=== PATIENT | male | born 1975 | race Caucasian/White ===

== ENCOUNTER → 2017-05-30 09:03 | Outpatient (REF) | payer MEDICAID, SELFPAY ==
[2017-05-30 14:06] LABS: Basophils % 0.6 % (0.1-2.0); Eosinophils # 0.2 K/mm3 (0.0-0.4); Eosinophils % 2.8 % (0.1-12.0); Hematocrit 47.2 % (42.0-52.0); Hemoglobin 15.7 g/dL (14.1-18.0); Lymphocytes # 1.9 K/mm3 (0.7-4.5); Lymphocytes % 32.9 K/mm3 (10-50); Mean Corpuscular HGB Conc 33.2 g/dL (31.8-35.4); Mean Corpuscular Hemoglobin 29.8 pg (27.0-31.2); Mean Corpuscular Volume 89.7 fl (80-94); Mean Platelet Volume 8.5 fl (7.4-10.4); Monocytes # 0.6 K/mm3 (0.1-1.0); Monocytes % 10.5 % (1.7-9.3); Neutrophils % 53.2 % (37.0-80.0); Platelet Count 296 K/mm3 (142-424); Red Blood Count 5.27 M/mm3 (4.60-6.20); White Blood Count 5.6 K/mm3 (4.8-10.8)
[2017-05-30 14:36] LABS: Alanine Aminotransferase 35 U/L (12-78); Albumin Level 3.9 gm/dL (3.4-5.0); Albumin/Globulin Ratio 1.3 (1.1-1.8); Alkaline Phosphatase 76 U/L (46-116); Anion Gap 14.5 mEq/L (5-15); Aspartate Amino Transferase 18 U/L (15-37); Bilirubin,Total 0.5 mg/dL (0.2-1.0); Blood Urea Nitrogen 17 mg/dL (7-18); Calcium 9.1 mg/dL (8.5-10.1); Carbon Dioxide 27 mmol/L (21.0-32.0); Chloride 103 mmol/L (98-107); Chol/HDL Ratio 4.4 (1-3.5); Cholesterol 197 mg/dL (140-200); Creatinine,Serum 0.92 mg/dL (0.70-1.30); Estimated Glomerular Filt Rate 90 ml/min (>60); GFR (African American) 109 ML/MIN (>60); Glucose 120 mg/dL (74-106); HDL Cholesterol 45 mg/dL (27-67); LDL Cholesterol 133 mg/dL (0-130); Potassium 4.5 mmoL/L (3.5-5.1); Sodium 140 mmol/L (136-145); T4 (Thyroxine) 8.2 ug/dl (4.7-13.3); Thyroid Stimulating Hormone 2.65 uIU/ml (0.358-3.740); Total Protein,Serum 6.9 gm/dL (6.4-8.2); Triglycerides 93 mg/dL (30-200); VLDL Cholesterol 19 mg/dL (0-40)
[2017-05-30 16:18] LABS: Hemoglobin A1C 5.5 % (0.0-7.0)
[2017-05-31 13:22] LABS: Vitamin B12 514 pg/mL (232-1245); Vitamin D 25 Hydroxy 34.1 ng/mL (30.0-100.0)
== END ==
LOC: LAB 09:03
PROVIDERS: Visit Provider Physician Assistant
DX: R42 Dizziness and giddiness (principal); Z83.3 Family history of diabetes mellitus
CPT/HCPCS: 80053; 80061; 82607; 82652; 83036; 84436; 84443; 85025

== ENCOUNTER → 2018-06-05 13:30 | Outpatient (CLI) | payer MEDICAID, SELFPAY ==
--- NOTE | 2018-06-05 13:31 | CT_ITS ---
CT chest w con HISTORY: Shortness of air in chest pain, left anterior chest pain ITS.REASON: a ORDERING PHYSICIAN: Dg Rolon MD PATIENT AGE: 42 years COMPARISON: None TECHNIQUE: Axial images obtained following the administration of 75 mL of Optiray 350 . Sagittal, and coronal reformatted images are also generated and reviewed. All CT scans at the facility use one or more dose reduction, viz: automated exposure control, ma/kV adjustment per patient size (including targeted exams where dose is matched to indication, i.e. head), or iterative reconstruction technique. FINDINGS: There is mild fusiform dilatation of the ascending aorta measuring up to 4.6 cm AP and 4.4 cm transverse. There is some mild calcification noted of the aortic valve. No evidence of aortic dissection. No evidence of central pulmonary embolus. Scattered small calcified nodes are present within the mediastinum. No mediastinal or hilar mass or adenopathy. There is a calcified granuloma in the right middle lobe. Small subpleural opacity is present in the right lower lobe posteriorly nonspecific at 6 mm x 3 mm. No lobar consolidation or collapse. No central obstructing lesions. A small subpleural opacity is present in the left lower lobe posteriorly at 3 mm. No acute finding in the upper abdomen. No acute bony findings. IMPRESSION: 1. Fusiform aneurysm of the ascending aorta at 4.6 x 4.4 cm with some minimal calcification of the aortic valve. Echocardiography may be of further value if not already performed 2. Nonspecific subpleural opacities in the both lower lobes measuring up to 6 x 3 mm on the right. Consider 6 month follow-up
--- NOTE | 2018-06-05 13:31 | CA_ITS ---
PROCEDURE: 2-D M-mode and color Doppler study INDICATIONS FOR THE TEST: Chest painX COPD Heart Murmur Tobacco Smoking Palpitations Fatigue Syncope Edema Hypertension Diabetes Mellitus Rheumatic Fever SOBXDOE ObesityXHyperlipidemia Family History HD Additional History BEE,AI PATIENT INFORMATION HEIGHT: 72 WEIGHT:240 GENDER: Male B/P:136/80 2-D/M-MODE INTERPRETATION: 2-D MEASUREMENTS OBSERVED VALUES IN CMS Right Ventricular Dimension (RVDd) 3.0 Interventricular Septum (Thickness)(IVsd) .9 Left Ventricular Internal Dimensions(LVIDd) 5.6 Left Ventricular Posterior Wall (Thickness)(LVPWd) .9 Aortic Root 3.6 Aortic Cusp Separation Left Atrial Dimensions (LAD) 3.0 2D 1. Left atrium is mildly enlarged, left ventricle is normal size, there is mild qualitative concentric left ventricular hypertrophy, visually estimated ejection fraction 55% with no regional wall motion abnormality. 2. The right atrium and right ventricle are mildly enlarged with normal contractility. 3. The aortic valve is thickened and calcified, leaflet continue to display mobility. 4. The mitral and tricuspid valvular grossly normal. 5. The pulmonic valve is poorly visualized. 6. No significant pericardial effusion noted. DOPPLER INTERROGATION: Doppler interrogation of the aortic, mitral and tricuspid valvular presence of aortic insufficiency which is difficult to quantify, this likely moderate range, mild mitral and tricuspid regurgitation, grade 1 diastolic dysfunction seen without tissue Doppler evidence of raised left atrial pressure, tricuspid regurgitation jet velocity is inadequate for calculation of the right ventricular systolic pressure. CONCLUSION: 1. Mildly enlarged left atrium, normal left ventricular size, mild concentric left ventricular hypertrophy, visually estimated ejection fraction of 55% with no regional wall motion abnormality, grade 1 diastolic dysfunction seen without tissue Doppler evidence of raised left atrial pressure. 2. Mildly enlarged right ventricle with normal contractility. 3. Thickened and calcified aortic valve without significant aortic stenosis, there is aortic insufficiency present which is difficult to quantify this is likely moderate range. 4. Mild mitral and tricuspid regurgitation 5. No significant pericardial effusion noted.
== END ==
PROVIDERS: PCP Physician Assistant; Visit Provider Internal Medicine Cardiovascular Disease
DX: R06.02 Shortness of breath (principal); R07.9 Chest pain, unspecified; I35.1 Nonrheumatic aortic (valve) insufficiency; R05 Cough; R91.8 Other nonspecific abnormal finding of lung field
CPT/HCPCS: 71260; 93306; Q9967

== ENCOUNTER → 2018-06-15 10:59 | Outpatient (CLI) | payer MEDICAID, SELFPAY ==
[2018-06-15 11:23] LABS: Basophils % 0.9 % (0.1-2.0); Eosinophils # 0.1 K/mm3 (0.0-0.4); Eosinophils % 1.7 % (0.1-12.0); Hematocrit 46.8 % (42.0-52.0); Hemoglobin 15.3 g/dL (14.1-18.0); Lymphocytes # 1.8 K/mm3 (0.7-4.5); Lymphocytes % 39.1 % (10-50); Mean Corpuscular HGB Conc 32.7 g/dL (31.8-35.4); Mean Corpuscular Hemoglobin 29.9 pg (27.0-31.2); Mean Corpuscular Volume 91.3 fl (80-94); Monocytes # 0.4 K/mm3 (0.1-1.0); Monocytes % 8.2 % (1.7-9.3); Neutrophils # 2.3 K/mm3 (1.8-7.8); Platelet Count 298 K/mm3 (142-424); Red Blood Count 5.12 M/mm3 (4.60-6.20); Red Cell Distribution Width 13.9 % (11.5-17.5); White Blood Count 4.7 K/mm3 (4.8-10.8)
[2018-06-15 12:28] LABS: Alanine Aminotransferase 31 U/L (12-78); Albumin Level 3.8 gm/dL (3.4-5.0); Albumin/Globulin Ratio 1.3 (1.1-1.8); Alkaline Phosphatase 73 U/L (46-116); Anion Gap 12.6 mEq/L (5-15); Aspartate Amino Transferase 18 U/L (15-37); Bilirubin,Total 0.6 mg/dL (0.2-1.0); Blood Urea Nitrogen 19 mg/dL (7-18); Calcium 9.2 mg/dL (8.5-10.1); Carbon Dioxide 29 mmol/L (21.0-32.0); Chloride 104 mmol/L (98-107); Estimated Glomerular Filt Rate 92 ml/min (>60); Free T4 (Free Thyroxine) 0.88 ng/dl (0.76-1.46); GFR (African American) 111 ML/MIN (>60); Glucose 89 mg/dL (74-106); Potassium 4.6 mmoL/L (3.5-5.1); Sodium 141 mmol/L (136-145); Thyroid Stimulating Hormone 2.39 uIU/ml (0.358-3.740); Total Protein,Serum 6.8 gm/dL (6.4-8.2)
== END ==
PROVIDERS: Physician Assistant; Visit Provider Internal Medicine Cardiovascular Disease
DX: R07.9 Chest pain, unspecified (principal); I35.1 Nonrheumatic aortic (valve) insufficiency; K21.9 Gastro-esophageal reflux disease without esophagitis; R05 Cough; R06.09 Other forms of dyspnea; Z99.89 Dependence on other enabling machines and devices; R51 Headache; G47.33 Obstructive sleep apnea (adult) (pediatric)
CPT/HCPCS: 36415; 80053; 83880; 84439; 84443; 85025

== ENCOUNTER → 2018-10-19 09:29 | Outpatient (CLI) | payer MEDICAID, SELFPAY ==
--- NOTE | 2018-10-19 09:31 | CA_ITS ---
PROCEDURE: 2-D M-mode and color Doppler study INDICATIONS FOR THE TEST: Chest pain + COPD Heart Murmur Tobacco Smoking Palpitations Fatigue Syncope Edema Hypertension+Diabetes Mellitus Rheumatic Fever SOB OLIVAS Obesity Hyperlipidemia+ Family History HD Additional History GERD, BEE, 08/13/18 AVR PIG VALVE & ANEURYSM REPAIR, 08/15/18 CVA RIGHT SIDE PATIENT INFORMATION HEIGHT: 72 WEIGHT:247 GENDER: Male B/P:126/87 2-D/M-MODE INTERPRETATION: 2-D MEASUREMENTS OBSERVED VALUES IN CMS Right Ventricular Dimension (RVDd) 2.7 Interventricular Septum (Thickness)(IVsd) 1.0 Left Ventricular Internal Dimensions(LVIDd) 5.1 Left Ventricular Posterior Wall (Thickness)(LVPWd) 0.8 Aortic Root 3.8 Aortic Cusp Separation 2.6 Left Atrial Dimensions (LAD) 4.0 2D 1. Left atrium is qualitatively mildly enlarged, left ventricle is normal size, left ventricle wall thickness is upper limit of the normal, there is preserved left ventricular systolic function, visually estimated ejection fraction 55% with no regional wall motion abnormality. 2. The right atrium and right ventricle are normal size and contractility. 3. There is mild prosthetic valve noted in the aortic position, the valve is well seated. 4. The mitral and tricuspid valvular grossly normal. 5. The pulmonic valve is poorly present. 6. No significant pericardial effusion noted. DOPPLER INTERROGATION: Doppler interrogation of the aortic, mitral and tricuspid valvular presence of mild mitral and tricuspid regurgitation, tricuspid regurgitation jet velocity is inadequate for calculation of the right ventricular systolic pressure, diastolic parameters are within normal range. Gradient across the prosthetic aortic valve is in acceptable range. CONCLUSION: 1. Mildly enlarged left atrium, normal left ventricular size, visually estimated ejection fraction 55% with no regional wall motion abnormality. Diastolic parameters are within normal range. 2. Normal functioning bio prosthetic valve in aortic position without aortic stenosis aortic insufficiency. 3. Mild mitral and tricuspid regurgitation 4. No significant pericardial effusion noted.
== END ==
PROVIDERS: PCP Physician Assistant; Visit Provider Internal Medicine Cardiovascular Disease
DX: R07.89 Other chest pain (principal); I35.1 Nonrheumatic aortic (valve) insufficiency; R42 Dizziness and giddiness; F41.9 Anxiety disorder, unspecified; K21.9 Gastro-esophageal reflux disease without esophagitis; G47.33 Obstructive sleep apnea (adult) (pediatric); Z86.79 Personal history of other diseases of the circulatory system; Z95.2 Presence of prosthetic heart valve; Z98.890 Other specified postprocedural states; Z99.89 Dependence on other enabling machines and devices
CPT/HCPCS: 93306

== ENCOUNTER → 2019-04-23 08:42 | Outpatient (CLI) | payer OTHER, SELFPAY ==
--- NOTE | 2019-04-23 08:45 | CA_ITS ---
APPROVED REPORT EXAM: Comprehensive 2D, Doppler, and color-flow Echocardiogram Supervisor Baking: Nina Pacheco RDCS Ht: 6 ft 0 in Wt: 263lbs BSA: 2.39 BP: 137/88 mmHg Indications: Prosthetic Valve PORCINE AV, Shortness of Breath, Hyperlipidemia, Hypertension/HDD 2D Dimensions LVOT 2.30 cm (M/F) 1.5-2.5 M-Mode Dimensions RVDd 3.00 cm (0.9-2.6) LA Diam 3.00 cm (1.9-4.0) LVDd 5.80 cm (3.5-5.7) Ao Diam 3.60 cm (2.0-3.7) LVDs 4.50 cm (3.5-5.7) AV Cusp 1.60 cm (1.5-2.6) IVSd 0.60 cm (0.6-1.1) PWd 1.00 cm (0.6-1.1) EF (Teich) 44.70% FS 22.40% EDV (Teich) 167.00 mL ESV (Teich) 92.40 mL LV Diastology E/A Ratio 1.2 MED E' 7.99 (< 7 cm/sec) E'/MED E' Ratio 13.10 (>14) LAT E' 8.48 (<10 cm/sec) E/LAT E' Ratio 12.40 (>14) Aortic Valve LVOT Max 121.00 (70-110 cm/s) LVOT VTI 26.00 cm AoV Peak Timothy. 108.00 (50-130 cm/s) AO Peak GR. 5.00 mmHg AO Mean GR. 3.00 (<5 mmHg) AO VTI 23.40 (18-25 cm) ROMULO (VTI) 4.61 (2.5-4.5 cm2) Mitral Valve MV E Max Timothy. 105.00 (40-130 cm/s) MV A Velocity 88.80 (40-130 cm/s) E/A Ratio 1.20 Tricuspid Valve TR P. Velocity 245.00 cm/s RAP Estimate 20.00 mmHg RVSP 44.00 mmHg Left Ventricle Left atrium is normal size, left ventricle is normal size, there is no concentric left ventricular hypertrophy, visually estimated ejection fraction of 55% with no regional wall motion abnormality. Diastolic parameters are within normal range. Right Ventricle Right atrium and right ventricular normal size and contractility. Aortic Valve There is a bioprosthetic valve noted in the aortic position, the valve is well-seated, there is no aortic stenosis or aortic insufficiency. Mitral Valve Mitral valve leaflets are minimally thickened, there is mild mitral regurgitation. Tricuspid Valve Tricuspid valve is grossly normal, there is mild tricuspid regurgitation, tricuspid regurgitation jet velocity is inadequate for calculation of the right ventricular systolic pressure. Pulmonic Valve Pulmonic valve is poorly visualized. Great Vessels Aortic root is normal size. Pericardium No significant pericardial effusion noted. Conclusion 1. Normal left ventricular size, preserved left ventricular systolic function, visually estimated ejection fraction 55% with no regional wall motion abnormality, diastolic parameters are within normal range. 2. Normal functioning bioprosthetic valve in the aortic position. 3. Mild mitral and tricuspid regurgitation. 4. No significant pericardial effusion noted. Electronically signed by : Dg Rolon, 04/24/2019 07:09:29
== END ==
PROVIDERS: PCP Physician Assistant; Visit Provider Internal Medicine Cardiovascular Disease
DX: R06.02 Shortness of breath (principal); R07.89 Other chest pain; R42 Dizziness and giddiness; I71.2 Thoracic aortic aneurysm, without rupture; F41.9 Anxiety disorder, unspecified; G47.33 Obstructive sleep apnea (adult) (pediatric); K21.9 Gastro-esophageal reflux disease without esophagitis; Z86.73 Personal history of transient ischemic attack (TIA), and cerebral infarction without residual deficits; Z86.79 Personal history of other diseases of the circulatory system; Z95.2 Presence of prosthetic heart valve; Z98.890 Other specified postprocedural states; Z99.89 Dependence on other enabling machines and devices
CPT/HCPCS: 93306

== ENCOUNTER → 2019-04-23 09:39 | Outpatient (CLI) | payer OTHER, SELFPAY ==
[2019-04-23 11:13] LABS: Anion Gap 15.3 mEq/L (5-15); Blood Urea Nitrogen 20 mg/dL (7-18); Calcium 9.1 mg/dL (8.5-10.1); Carbon Dioxide 28 mmol/L (21.0-32.0); Chloride 102 mmol/L (98-107); Creatinine,Serum 1.02 mg/dL (0.70-1.30); Estimated Glomerular Filt Rate 79 ml/min (>60); GFR (African American) 96 ML/MIN (>60); Glucose 84 mg/dL (74-106); Potassium 4.3 mmoL/L (3.5-5.1); Sodium 141 mmol/L (136-145)
== END ==
PROVIDERS: Visit Provider Internal Medicine Cardiovascular Disease
DX: R07.89 Other chest pain (principal); R06.02 Shortness of breath; R42 Dizziness and giddiness; K21.9 Gastro-esophageal reflux disease without esophagitis; F41.9 Anxiety disorder, unspecified; G47.33 Obstructive sleep apnea (adult) (pediatric); I71.2 Thoracic aortic aneurysm, without rupture; Z86.73 Personal history of transient ischemic attack (TIA), and cerebral infarction without residual deficits; Z86.79 Personal history of other diseases of the circulatory system; Z95.2 Presence of prosthetic heart valve; Z98.890 Other specified postprocedural states; Z99.89 Dependence on other enabling machines and devices
CPT/HCPCS: 36415; 80048; 83880

== ENCOUNTER → 2019-10-30 14:01 | Outpatient (CLI) | payer OTHER, SELFPAY ==
[2019-10-30 14:27] LABS: Basophils # 0.1 K/mm3 (0-0.2); Basophils % 1.1 % (0.1-2.0); Eosinophils # 0.2 K/mm3 (0.0-0.4); Eosinophils % 3.1 % (0.1-12.0); Hematocrit 45.1 % (42.0-52.0); Hemoglobin 15.9 g/dL (14.1-18.0); Lymphocytes # 1.7 K/mm3 (0.7-4.5); Lymphocytes % 33.9 % (10-50); Mean Corpuscular HGB Conc 35.3 g/dL (31.8-35.4); Mean Corpuscular Volume 87.9 fl (80-94); Mean Platelet Volume 7.8 fl (7.4-10.4); Monocytes # 0.5 K/mm3 (0.1-1.0); Monocytes % 9.5 % (1.7-9.3); Neutrophils # 2.6 K/mm3 (1.8-7.8); Neutrophils % 52.4 % (37.0-80.0); Platelet Count 313 K/mm3 (142-424); Red Blood Count 5.13 M/mm3 (4.60-6.20); Red Cell Distribution Width 13.7 % (11.5-17.5)
[2019-10-30 14:47] LABS: Thyroid Stimulating Hormone 2.66 uIU/mL (0.465-4.68)
[2019-10-30 15:15] LABS: Alanine Aminotransferase 48 U/L (12-78); Albumin Level 4.4 g/dl (3.5-5.0); Albumin/Globulin Ratio 1.7 (1.1-1.8); Alkaline Phosphatase 88 U/L (38-126); Aspartate Amino Transferase 37 U/L (17-59); Bilirubin,Total 0.7 mg/dl (0.2-1.3); Blood Urea Nitrogen 22 mg/dl (9-20); Calcium 9.4 mg/dl (8.4-10.2); Carbon Dioxide 23 mmol/L (22.0-30.0); Chloride 104 mmol/L (98-107); Chol/HDL Ratio 6.3 (1-3.5); Cholesterol 276 mg/dl (140-200); Estimated Glomerular Filt Rate 123 ml/min (>60); GFR (African American) 148 ML/MIN (>60); Globulin 2.6 g/dL (1.3-3.2); Glucose 98 mg/dl (74-100); HDL Cholesterol 44 mg/dl (40-60); Sodium 138 mmol/L (136-145); Triglycerides 240 mg/dl (30-150); VLDL Cholesterol 48 mg/dL (0-40)
[2019-10-30 15:31] LABS: 25-OH Vitamin D, Total 37.2 ng/mL (30-100); T4 (Thyroxine) 6.8 ug/dl (5.53-11.0)
[2019-10-30 15:40] LABS: Direct LDL Cholesterol 195.46 mg/dL (100-129)
== END ==
PROVIDERS: Visit Provider Physician Assistant
DX: R19.4 Change in bowel habit (principal)
CPT/HCPCS: 80053; 80061; 82306; 84436; 84443; 85025

== ENCOUNTER → 2019-11-07 09:39 | Outpatient (CLI) | payer OTHER, SELFPAY ==
--- NOTE | 2019-11-07 09:40 | US_ITS ---
PROCEDURE: US ABDOMEN COMPLETE CLINICAL INDICATION: abdominal pain COMPARISON: No exams were available for comparison FINDINGS: PANCREAS: Unremarkable. No obvious mass or abnormal fluid collection. No ductal dilatation LIVER: No focal liver lesions demonstrated. Homogeneous echogenicity. No intrahepatic biliary ductal dilatation evident. There is appropriate direction of blood flow within a non dilated portal vein RIGHT KIDNEY: Unremarkable. Normal size and echogenicity. No hydronephrosis LEFT KIDNEY: Unremarkable. Normal size and echogenicity. No hydronephrosis GALLBLADDER: No gallstones, gallbladder wall thickening, pericholecystic fluid, or biliary dilatation. AORTA: No evidence of aneurysmal dilatation. SPLEEN: Unremarkable. Normal size and echogenicity ASCITES: None demonstrated. IMPRESSION: Negative abdominal ultrasound Dictated b Kevin Olivia MD 11/07/2019 16:30 Kevin Olivia MD in [place] 11/07/2019 16:30
== END ==
PROVIDERS: PCP Physician Assistant; Visit Provider Physician Assistant
DX: R19.4 Change in bowel habit (principal); G47.33 Obstructive sleep apnea (adult) (pediatric)
CPT/HCPCS: 76700; 94762

== ENCOUNTER → 2019-12-04 13:05 | Outpatient (CLI) | payer OTHER, SELFPAY ==
[2019-12-04 15:53] LABS: Coronavirus 19 IgG Antibody Negative (Negative); Coronavirus 19 IgM Antibody Negative (Negative)
== END ==
PROVIDERS: Visit Provider Internal Medicine Gastroenterology
DX: Z01.818 Encounter for other preprocedural examination (principal); Z12.11 Encounter for screening for malignant neoplasm of colon
CPT/HCPCS: 36415; 86328

== ENCOUNTER → 2020-01-11 16:06 | Outpatient (CLI) | payer OTHER, SELFPAY ==
[2020-01-11 18:00] LABS: Coronavirus 19 IgG Antibody Negative (Negative); Coronavirus 19 IgM Antibody Negative (Negative)
== END ==
PROVIDERS: Internal Medicine Gastroenterology; PCP Physician Assistant; Visit Provider Physician Assistant
DX: Z01.89 Encounter for other specified special examinations (principal); Z12.11 Encounter for screening for malignant neoplasm of colon
CPT/HCPCS: 86328

== ENCOUNTER 2020-01-13 07:22 | Day surgery (SDC) | payer OTHER, SELFPAY ==
[2019-12-03 10:44] VITALS: BMI 35.2
[2020-01-13] VITALS (7 sets, daily range): BP systolic 93–142; BP diastolic 48–88; PULSE 56–73; RESP 16–18; TEMP 36.3–36.6; O2SAT 94–100
--- NOTE | 2020-01-13 08:33 | P.PN_ITS ---
[facility] Anesthesia Checklist - Structural Data Admitted From: Home Planned Operative Procedure/s: colonoscopy Consent for Planned Operative Procedure(s) Verified: Yes - Airway Assessment C-Spine Mobility Assessed: Yes TMJ Mobility Assessed: Yes Dentition: Good Dentition - Neurological Assessment Level of Consciousness: Awake, Alert, Appropriate - Anesthesia Plan Anesthesia Risk discussed: Yes Anesthesia Plan: Patient unable to respond/answer ASA Class: III Anesthesia Type: MAC [facility] History I have reviewed the patient's past medical history: Yes Medical History: Reports:: Aneurysm, Anxiety, Cerebrovascular Accident, Depression, Gastroesophageal Reflux Disease(GERD), Hypertension, Valvular Heart Disease (has mechanical valve) Denies:: Cancer, Diabetes Mellitus Type 1, Diabetes Mellitus Type 2, Internal Pacemaker, MRSA, Seizures *Have you ever received a pneumonia vaccine?: Yes *Have you received a flu vaccine this season?: Yes Other Medical History: Reports: Arthritis, Other Anesthesia experience/problems:: none Other Surgeries: Yes: No Previous Surgery, Cardiac Catheterization, Cardiac Surgery, Other (RE 2019). No: Pacemaker Amputation: No Fractures: No - *Social History Last grade of school completed: Some college Smoking Status: Never smoker Alcohol Intake: never Alcohol Intake Frequency:: other Substance Use Type: denies use *Occupational Status:: employed Housing: house Household Members: spouse *Travel in the last 8 weeks: None - Psychiatric History Pschychiatric History:: Reports:: Anxiety, Depression Family Hx:: Diabetes, Stroke
--- NOTE | 2020-01-13 08:39 | P.PCN_ITS ---
[facility] Procedure Note Procedure Note:: Colonoscopy Procedure Report: Colonoscopy Endoscopist: Chilo Patton II, MD Referring physician: Michelle Lane PA-C Date of Procedure: January 13, 2020 Equipment: Olympus 180 variable stiffness pediatric colonoscope Sedation: MAC sedation Indication: Mr. Gallegos is a 44-year-old gentleman with a change in bowel habits. He has had diarrhea with bowel urgency and some frequency and less solid bowel movements. He does get some preceding crampy abdominal discomfort and may have associated diaphoresis, nausea and occasional vomiting. He does get alleviation with evacuation. He reports no rectal bleeding or weight loss. He reports no family history of colitis, Crohn's disease or colon cancer. The patient's last colonoscopy was more than 30 years ago. He does get a little gassiness and bloating. He reports no mucus with his bowel movements. He has changed his eating habits and avoids greasy/fatty foods. Procedure: Prior to the procedure, a history and physical exam was performed, and patient's medications and allergies were reviewed. The risks, benefits and alternatives of the sedation and procedure were discussed with the patient. All questions were answered and informed consent was obtained. The patient was brought to the procedure room. Patient identification and proposed procedure were verified by the physician and the nurse. The patient was placed in a left lateral decubitus position and the scope was passed under direct vision. Throughout the procedure, the patient's blood pressure, pulse, and oxygen saturations were monitored continuously. The colonoscopy was accomplished without difficulty. The patient tolerated the procedure well. Findings: On digital rectal examination there was normal rectal tone. There were no external hemorrhoids. The prostate was 2+, smooth, soft, symmetric without nodules. The colonoscope was introduced through the anal canal to the rectum and advanced to the cecum. The ileocecal valve and appendiceal orifice were identified. The scope was advanced a short distance into the ileum which appeared grossly normal. The scope was then withdrawn into the colon. The cecum, ascending and transverse colon and mucosa were grossly normal. There were scattered diverticuli throughout the descending and sigmoid colon (LEFT colon). The rectum itself was normal. Upon retroflexion within the rectum there were grade 1-2 internal hemorrhoids. The preparation was excellent throughout with Logan Preparation Score of 9. The cecal time was 10 minutes. Impression: 1. Left-sided diverticulosis 3. Grade 1-2 internal hemorrhoids Plan: I would encourage dietary measures, bulk fiber supplementation, probiotic and consider antispasmodic (dicyclomine). I do feel that he has some spastic diverticular disease. He will not require surveillance colonoscopy again for 10 years by ACS guidelines.
== END 2020-01-13 10:00 | disposition home or self-care (01) ==
LOC: OUTP 07:25
PROVIDERS: PCP Physician Assistant; Visit Provider Internal Medicine Gastroenterology
PROC: 0DJD8ZZ Inspection of Lower Intestinal Tract, Via Natural or Artificial Opening Endoscopic (ICD-10-PCS; CPT 45378; principal; 2020-01-13 08:30)
DX: R19.4 Change in bowel habit (principal); K57.30 Diverticulosis of large intestine without perforation or abscess without bleeding; K64.0 First degree hemorrhoids; K21.9 Gastro-esophageal reflux disease without esophagitis; I10 Essential (primary) hypertension; F41.9 Anxiety disorder, unspecified; F32.9 Major depressive disorder, single episode, unspecified; Z86.79 Personal history of other diseases of the circulatory system; Z86.73 Personal history of transient ischemic attack (TIA), and cerebral infarction without residual deficits; M19.90 Unspecified osteoarthritis, unspecified site; Z79.82 Long term (current) use of aspirin; Z79.899 Other long term (current) drug therapy
CPT/HCPCS: 45378

== ENCOUNTER → 2020-04-28 14:28 | Outpatient (CLI) | payer OTHER, SELFPAY ==
[2020-04-28 15:26] LABS: Basophils # 0.1 K/mm3 (0-0.2); Basophils % 0.6 % (0.1-2.0); Eosinophils # 0.2 K/mm3 (0.0-0.4); Eosinophils % 1.5 % (0.1-12.0); Hematocrit 50.6 % (42.0-52.0); Hemoglobin 17.1 g/dL (14.1-18.0); Lymphocytes # 1.6 K/mm3 (0.7-4.5); Lymphocytes % 13.7 % (10-50); Mean Corpuscular HGB Conc 33.8 g/dL (31.8-35.4); Mean Corpuscular Hemoglobin 30.5 pg (27.0-31.2); Mean Corpuscular Volume 90.3 fl (80-94); Mean Platelet Volume 8.3 fl (7.4-10.4); Monocytes # 0.9 K/mm3 (0.1-1.0); Monocytes % 8.1 % (1.7-9.3); Neutrophils # 8.8 K/mm3 (1.8-7.8); Neutrophils % 76.1 % (37.0-80.0); Platelet Count 339 K/mm3 (142-424); Red Blood Count 5.61 M/mm3 (4.60-6.20); Red Cell Distribution Width 14.1 % (11.5-17.5); White Blood Count 11.6 K/mm3 (4.8-10.8)
[2020-04-28 15:35] LABS: Alanine Aminotransferase 39 U/L (12-78); Albumin Level 4.7 g/dl (3.5-5.0); Albumin/Globulin Ratio 1.6 (1.1-1.8); Alkaline Phosphatase 95 U/L (38-126); Anion Gap 15.5 mEq/L (5-15); Aspartate Amino Transferase 38 U/L (17-59); Bilirubin,Total 0.8 mg/dl (0.2-1.3); Blood Urea Nitrogen 18 mg/dl (9-20); Calcium 10.1 mg/dl (8.4-10.2); Carbon Dioxide 27 mmol/L (22.0-30.0); Chloride 99 mmol/L (98-107); Chol/HDL Ratio 3.4 (1-3.5); Cholesterol 165 mg/dl (140-200); Estimated Glomerular Filt Rate 81 ml/min (>60); GFR (African American) 98 ML/MIN (>60); Globulin 2.9 g/dL (1.3-3.2); Glucose 86 mg/dl (74-100); HDL Cholesterol 48 mg/dl (40-60); Potassium 4.5 mmoL/L (3.5-5.1); Sodium 137 mmol/L (136-145); Total Protein,Serum 7.6 g/dl (6.3-8.2); Triglycerides 156 mg/dl (30-150); VLDL Cholesterol 31 mg/dL (0-40)
[2020-04-28 15:45] LABS: Direct LDL Cholesterol 91.54 mg/dL (100-129)
[2020-04-28 15:55] LABS: 25-OH Vitamin D, Total 29.3 ng/mL (30-100)
[2020-04-28 15:56] LABS: T4 (Thyroxine) 7.5 ug/dl (5.53-11.0)
[2020-04-28 16:01] LABS: Coronavirus 19 IgG Antibody Negative (Negative); Coronavirus 19 IgM Antibody Negative (Negative)
[2020-04-28 16:10] LABS: Thyroid Stimulating Hormone 2.93 uIU/mL (0.465-4.68)
[2020-04-28 16:28] LABS: Vitamin B12 616 pg/mL (239-931)
== END ==
PROVIDERS: Visit Provider Physician Assistant
DX: Z20.822 Contact with and (suspected) exposure to COVID-19 (principal); E78.5 Hyperlipidemia, unspecified; E55.9 Vitamin D deficiency, unspecified; G62.9 Polyneuropathy, unspecified
CPT/HCPCS: 80053; 80061; 82306; 82607; 84436; 84443; 85025; 86328

== ENCOUNTER → 2020-04-28 20:15 | Outpatient (CLI) | payer OTHER, SELFPAY | PROVIDERS: PCP Physician Assistant; Visit Provider Nurse Practitioner Family | DX: G47.33 Obstructive sleep apnea (adult) (pediatric) (principal); R06.83 Snoring | CPT/HCPCS: 95810 ==

== ENCOUNTER → 2020-09-04 09:41 | Outpatient (CLI) | payer OTHER, SELFPAY ==
[2020-09-08 13:10] LABS: Testosterone, Total, LC/MS 151.9 ng/dL (264.0-916.0); Testosterone,Free 6.5 pg/mL (6.8-21.5)
== END ==
PROVIDERS: Visit Provider Specialist
DX: E29.1 Testicular hypofunction (principal)
CPT/HCPCS: 36415; 84402; 84403

== ENCOUNTER → 2020-10-07 18:37 | Outpatient (CLI) | payer OTHER, SELFPAY | PROVIDERS: Visit Provider Nurse Practitioner Family | DX: N39.0 Urinary tract infection, site not specified (principal) | CPT/HCPCS: 87086 ==

== ENCOUNTER 2020-10-23 09:30 | Outpatient (RCR) | payer OTHER, SELFPAY ==
--- NOTE | 2020-08-12 11:49 | HMH.PTOPEV ---
PT Outpatient Evaluation Rehab PT Outpatient Evaluation Start: 08/12/20 11:05 Freq: Status: Active Protocol: Document 08/12/20 11:38 MICHELE (Rec: 08/12/20 11:49 YAHIRANNA [id number]) Electronically Signed By Sanket Guy, PT 08/12/20 11:38 Outpatient Therapy Subjective History Subjective History Patient is a 44 year old male presenting to outpatient PT with reports of cervical spine pain with RUE radicular symptoms to R hand/elbow. Patient also reports hx of frequent cervicogenic headaches. Symptom onset approx 2 years ago after CVA affecting RUE/RLE per patient report. R shoulder AROM WNL. No recent imaging to report. Comorbidities include hx of heart valve replacement, HTN and HL . Chief Complaint Pain,Stiff,Paresthesia Symptom Type Ache,Numbness,Tingling Symptoms Relieved By Prescription Meds Symptoms Aggravated By Physical Activity,Lifting Prior Functional Limitations None Current Functional Limitations Reaching,Lifting,Housework Symptom Description Constant but Variable Level of pain today (0-10) 3 Pain scale - at its best (0-10) 2 Pain scale - at its worst (0-10) 7 Cervical Eval Palpation Cervical Muscles R Suboccipital,L Suboccipital, R Upper Trapezius,L Upper Trapezius Cervical/Thoracic Palpation Findings Tenderness Posture Head/C-Spine Posture Sitting Position C-Spine Flattened Head/C-Spine Posture Standing Position C-Spine Flattened Flexibility Deficits Upper Trapezius Muscle Length (R) Moderate Tightness,(L) Moderate Tightness Levaetor Scapulae Muscle Length (R) Moderate Tightness,(L) Moderate Tightness Pectoralis Minor Muscle Length (R) Moderate Tightness,(L) Moderate Tightness Passive Joint Mobility Cervical PIVM Dec: R C2/3 L C2/3 R C3/4 L C3/4 R C4/5 L C4/5 R C5/6 L C5/6 R C6/7 L C6/7 R C7/T1 L C7/T1
--- NOTE | 2020-10-16 09:44 | HMH.RHREAS ---
Rehab Reassessment Rehab OP Re-assessment Start: 09/10/20 10:26 Freq: Status: Active Protocol: Document 10/16/20 09:38 MICHELE (Rec: 10/16/20 09:43 MICHELE [id number]) Electronically Signed By Sanket Guy, PT 10/16/20 09:38 Rehab Re-assessment Subjective Subjective Patient reports 30% improvement since start of care. I still have pain, but I feel like I'm moving better. Objective Objective Notes CROM: flx 55; ext 50; SBl 45; SBr 42; Rr 52; Rl 45 MMT: WNL Neuro: dec sensation C6/7/8 TTP: R sub-occipitals and upper trap 2/4 Special tests: j carloslings - [ End ] Assessment Progress Assessment Progressing as Expected Assessment Notes Attendance to regular appointments has been hindered secondary to travel and illness per patient report. Overall patient is reporting decreased radicular symptoms. Persistent sub-occipital pain and cervicogenic headaches. Patient reports copliance with HEP. Slightly improved mobility as noted above, though radicular symptoms persist. Patient continues to have functional limitations with all lifting, reaching and work related activities. [ End ] Patient goals met STG's Goals Not Met LTG's Revised Goals NA Plan Plan Continue with current POC. Discussed intro of dry needling next visit with PT. Frequency of Therapy 2x/week Duration of therapy 4 weeks Time and Billing Re-Eval Time 15 Re-Eval Billing Units 1 PHYSICIAN CERTIFICATION: I certify the specified therapy services for Alonzo Gallegos are required, authorized, and reviewed every 30 days.
== END 2020-10-23 09:35 | disposition home or self-care (01) ==
LOC: PT 09:30
PROVIDERS: PCP Physician Assistant; Visit Provider Specialist
DX: R51.9 Headache, unspecified (principal); M79.601 Pain in right arm
CPT/HCPCS: 20561; 97010; 97012; 97014; 97110; 97140; 97163; 97164; G0283

== ENCOUNTER → 2020-12-09 19:30 | Outpatient (CLI) | payer OTHER, SELFPAY | PROVIDERS: Visit Provider Physician Assistant | DX: Z20.822 Contact with and (suspected) exposure to COVID-19 (principal); R69 Illness, unspecified | CPT/HCPCS: U0003 ==

== ENCOUNTER → 2020-12-30 12:54 | Outpatient (CLI) | payer OTHER, SELFPAY | PROVIDERS: Visit Provider Physician Assistant | DX: N20.0 Calculus of kidney (principal) | CPT/HCPCS: 87086 ==

== ENCOUNTER → 2021-01-08 11:02 | Outpatient (CLI) | payer OTHER, SELFPAY ==
--- NOTE | 2021-01-08 11:02 | CT_ITS ---
PROCEDURE: CT ABDOMEN PELVIS WO CON CLINICAL INDICATION: left flank pain COMPARISON: No exams were available for comparison TECHNIQUE: Axial images obtained with sagittal and coronal reformats. All CT scans at the facility use one or more dose reduction, viz: automated exposure control, ma/kV adjustment per patient size (including targeted exams where dose is matched to indication, i.e. head), or iterative reconstruction technique. FINDINGS: Lower thorax: No acute finding ABDOMEN: Liver: No masses or biliary dilatation. Gallbladder: Nondistended. No radio opaque stones. Pancreas: No masses or peripancreatic fluid collections. Spleen: unremarkable Adrenals: unremarkable Kidneys/ureters: unremarkable the kidneys are normal in size and there are no calculi and no obstructive uropathy. ABDOMEN & PELVIS: Stomach bowel: Nondistended. No obvious mass or thickening. The small bowel appears normal. There is moderate scattered stool and gas seen throughout the colon. Peritoneum: No abnormal fluid collections. No obvious inflammatory changes. No free air. There is a tiny umbilical hernia containing fat only. Lymph nodes: No enlarged lymph nodes apparent. Vasculature: No evidence of abdominal aortic aneurysm. No retroperitoneal hemorrhage evident. Bones: No acute fracture PELVIS: Reproductive: unremarkable the prostate is normal in size. Bladder: Nondistended. No obvious stones or masses. Appendix: The appendix is not definitely visualized but no pericecal inflammatory changes. IMPRESSION: No acute finding Dictated by: Dr. Aaron Chamorro MD 01/08/2021 11:42 Dr. Aaron Chamorro MD in [place] 01/08/2021 11:42
== END ==
PROVIDERS: PCP Physician Assistant; Visit Provider Physician Assistant
DX: R10.9 Unspecified abdominal pain (principal)
CPT/HCPCS: 74176

== ENCOUNTER → 2021-01-25 13:41 | Outpatient (CLI) | payer OTHER, SELFPAY | PROVIDERS: Visit Provider Physician Assistant | DX: M54.9 Dorsalgia, unspecified (principal); S30.812A Abrasion of penis, initial encounter | CPT/HCPCS: 87252 ==

== ENCOUNTER → 2021-03-16 15:29 | Outpatient (CLI) | payer OTHER, SELFPAY ==
[2021-03-16 15:32] LABS: MANUAL DIFFERENTIAL MANUAL DIFFERENTIAL (MANUAL DIFF)
[2021-03-16 16:40] LABS: Alanine Aminotransferase 96 U/L (12-78); Alkaline Phosphatase 67 U/L (38-126); Aspartate Amino Transferase 63 U/L (17-59); Bilirubin,Direct 0.2 mg/dl (0.0-0.4); Bilirubin,Indirect 0.3 mg/dL (0.0-0.9); Bilirubin,Total 0.5 mg/dl (0.2-1.3); Bilirubin,Unconjugated 0.2 mg/dL (0.0-1.1); Total Protein,Serum 6.7 g/dl (6.3-8.2)
[2021-03-16 16:47] LABS: Basophils # 0.1 K/mm3 (0-0.2); Eosinophils # 0.1 K/mm3 (0.0-0.4); Eosinophils % 2.2 % (0.1-12.0); Hematocrit 48.7 % (42.0-52.0); Hemoglobin 16.9 g/dL (14.1-18.0); Lymphocytes # 1.9 K/mm3 (0.7-4.5); Lymphocytes % 30.9 % (10-50); Mean Corpuscular HGB Conc 34.8 g/dL (31.8-35.4); Mean Platelet Volume 7.2 fl (7.4-10.4); Monocytes # 0.9 K/mm3 (0.1-1.0); Neutrophils # 3.2 K/mm3 (1.8-7.8); Neutrophils % 51.9 % (37.0-80.0); Platelet Count 330 K/mm3 (142-424); Red Blood Count 5.47 M/mm3 (4.60-6.20); Red Cell Distribution Width 13.7 % (11.5-17.5); White Blood Count 6.1 K/mm3 (4.8-10.8)
[2021-03-16 17:11] LABS: Prostate Specific Ag Screen 2.1 ng/ml (0.0-4.0)
[2021-03-16 21:04] LABS: Eosinophils % 4 % (0-3); Lymphocytes % 27 % (10-50); Monocytes % 11 % (2-9); Neutrophils % 58 % (42-76); Nucleated Red Blood Cells 1; Platelet Estimate Normal; Total Cells Counted 100
[2021-03-21 17:08] LABS: Testosterone, Total, LC/MS 1653.4 ng/dL (264.0-916.0); Testosterone,Free >50.0 pg/mL (6.8-21.5)
== END ==
PROVIDERS: Visit Provider Urology
DX: E29.1 Testicular hypofunction (principal); Z12.5 Encounter for screening for malignant neoplasm of prostate
CPT/HCPCS: 36415; 80076; 84402; 84403; 85007; 85014; 85018; 85048; 85049; G0103

== ENCOUNTER → 2021-06-29 16:00 | Outpatient (CLI) | payer OTHER, SELFPAY ==
[2021-06-29 17:52] LABS: Alanine Aminotransferase 55 U/L (12-78); Albumin Level 4.4 g/dl (3.5-5.0); Albumin/Globulin Ratio 1.6 (1.1-1.8); Alkaline Phosphatase 91 U/L (38-126); Anion Gap 11.2 mEq/L (5-15); Aspartate Amino Transferase 48 U/L (17-59); Bilirubin,Total 0.7 mg/dl (0.2-1.3); Blood Urea Nitrogen 16 mg/dl (9-20); Calcium 9.3 mg/dl (8.4-10.2); Carbon Dioxide 30 mmol/L (22.0-30.0); Chloride 101 mmol/L (98-107); Estimated Glomerular Filt Rate 80 ml/min (>60); GFR (African American) 97 ML/MIN (>60); Globulin 2.7 g/dL (1.3-3.2); Glucose 99 mg/dl (74-100); HDL Cholesterol 33 mg/dl (40-60); Potassium 4.2 mmoL/L (3.5-5.1); Sodium 138 mmol/L (136-145); Total Protein,Serum 7.1 g/dl (6.3-8.2)
[2021-06-29 17:58] LABS: Basophils # 0.1 K/mm3 (0-0.2); Eosinophils # 0.1 K/mm3 (0.0-0.4); Eosinophils % 1.5 % (0.1-12.0); Hematocrit 54.5 % (42.0-52.0); Lymphocytes # 1.4 K/mm3 (0.7-4.5); Lymphocytes % 17.1 % (10-50); Mean Corpuscular HGB Conc 33.7 g/dL (31.8-35.4); Mean Corpuscular Hemoglobin 31.4 pg (27.0-31.2); Mean Corpuscular Volume 93.4 fl (80-94); Mean Platelet Volume 8.9 fl (7.4-10.4); Monocytes # 0.8 K/mm3 (0.1-1.0); Monocytes % 9.5 % (1.7-9.3); Neutrophils # 5.7 K/mm3 (1.8-7.8); Neutrophils % 70.9 % (37.0-80.0); Platelet Count 332 K/mm3 (142-424); Red Blood Count 5.84 M/mm3 (4.60-6.20); Red Cell Distribution Width 14.6 % (11.5-17.5)
[2021-06-29 18:03] LABS: Direct LDL Cholesterol 73.77 mg/dL (100-129)
[2021-06-29 18:23] LABS: Thyroid Stimulating Hormone 2.37 uIU/mL (0.465-4.68)
[2021-06-29 18:42] LABS: Vitamin B12 519 pg/mL (239-931)
[2021-06-29 19:31] LABS: Chol/HDL Ratio 4.3 (1-3.5); Cholesterol 142 mg/dl (140-200); Triglycerides 281 mg/dl (30-150); VLDL Cholesterol 56 mg/dL (0-40)
[2021-06-29 19:41] LABS: Hemoglobin 18.4 g/dL (14.1-18.0)
[2021-07-01 08:34] LABS: HIV Screen 4th Generation wRfx Non Reactive (Non Reactive); HSV 2 IgG, Type Spec <0.91 index (0.00-0.90); Testosterone,Total >1500 ng/dL (264-916)
[2021-07-01 09:25] LABS: Hep A Ab, IgM Negative (Negative); Hepatitis B Core Antibody IgM Negative (Negative); Hepatitis B Surface Antigen Negative (Negative); Hepatitis C Antibody <0.1 s/co ratio (0.0-0.9)
[2021-07-01 22:23] LABS: Neisseria gonorrhoeae, NAA Negative (Negative)
== END ==
PROVIDERS: Visit Provider Physician Assistant
DX: R53.83 Other fatigue (principal); E53.8 Deficiency of other specified B group vitamins; E66.9 Obesity, unspecified; Z68.35 Body mass index [BMI] 35.0-35.9, adult; Z11.3 Encounter for screening for infections with a predominantly sexual mode of transmission; Z11.4 Encounter for screening for human immunodeficiency virus [HIV]
CPT/HCPCS: 80053; 80061; 80074; 82306; 82607; 84403; 84443; 85025; 86592; 86695; 86703; 86790; 87491; 87591; G0432

== ENCOUNTER → 2021-07-05 09:52 | Outpatient (CLI) | payer OTHER, SELFPAY ==
--- NOTE | 2021-07-05 09:59 | XR_ITS ---
FINAL REPORT CLINICAL HISTORY: dyspnea, open heart sx couple years ago FINDINGS: Two views of the chest were obtained. There is evidence of median sternotomy. The heart size and pulmonary vascularity are within normal limits. The mediastinum is normal. No acute pulmonary abnormality is identified. There is no pneumothorax. The bony thorax is intact. IMPRESSION: No active cardiopulmonary disease. Reviewed, Interpreted and Dictated by Yair Gregory III, MD Transcribed by Clint Vizcarra Authenticated by Yair Gregory III, MD on 07/05/2021 11:45:51 AM [facility]
[2021-07-05 10:37] LABS: Basophils # 0.2 K/mm3 (0-0.2); Basophils % 1.5 % (0.1-2.0); Eosinophils # 0.1 K/mm3 (0.0-0.4); Eosinophils % 0.7 % (0.1-12.0); Hematocrit 54.3 % (42.0-52.0); Hemoglobin 17.8 g/dL (14.1-18.0); Lymphocytes % 25.1 % (10-50); Mean Corpuscular HGB Conc 32.7 g/dL (31.8-35.4); Mean Corpuscular Hemoglobin 31.3 pg (27.0-31.2); Mean Corpuscular Volume 95.4 fl (80-94); Mean Platelet Volume 7.6 fl (7.4-10.4); Monocytes # 1.1 K/mm3 (0.1-1.0); Monocytes % 9.6 % (1.7-9.3); Neutrophils # 7.4 K/mm3 (1.8-7.8); Platelet Count 320 K/mm3 (142-424); Red Blood Count 5.69 M/mm3 (4.60-6.20); Red Cell Distribution Width 14.3 % (11.5-17.5); White Blood Count 11.8 K/mm3 (4.8-10.8)
[2021-07-07 16:12] LABS: Treponema pallidum Antibodies Reactive (Non Reactive)
== END ==
PROVIDERS: PCP Physician Assistant; Visit Provider Nurse Practitioner Family
DX: R06.00 Dyspnea, unspecified (principal); E78.5 Hyperlipidemia, unspecified; N52.9 Male erectile dysfunction, unspecified; Z86.73 Personal history of transient ischemic attack (TIA), and cerebral infarction without residual deficits; Z86.79 Personal history of other diseases of the circulatory system; Z95.2 Presence of prosthetic heart valve; Z98.890 Other specified postprocedural states; Z92.89 Personal history of other medical treatment
CPT/HCPCS: 36415; 71046; 85025; 86780

== ENCOUNTER 2021-07-05 23:22 | Emergency (ER) | payer OTHER, SELFPAY ==
[2021-07-05 23:23] VITALS: BP 133/75; PULSE 90; RESP 18; TEMP 36.7; O2SAT 97; BMI 35.2
--- NOTE | 2021-07-05 23:53 | HMH.EDHA ---
ED Disposition Clinical Impression: Headache Qualifiers: Headache type: unspecified Headache chronicity pattern: acute headache Intractability: not intractable Qualified Code(s): R51.9 - Headache, unspecified Disposition: Home, Self-Care Condition on Discharge: Good Instructions: DI for Headache Additional Instructions: see pcp Referrals: Michelle Lane PA [Primary Care Provider] - - Critical Care Critical Care Time: No Attestation: On 07/05/21, the high probability of a clinically significant, sudden or life threatening deterioration of the following system(s) required my full and direct attention, intervention and personal management. The time I documented below is in addition to time spent performing reported procedures but includes the following listed in this critical care notation. Medical Decision Making - Medical Records Medical records reviewed: Yes: I reviewed the patient's medical records. - Josh Inquiry Pt receiving controlled substance: No Vital Signs: 07/05/21 23:23 Temperature 98.0 F Temperature Source Oral Pulse Rate [Left Radial] 90 Respiratory Rate 18 Blood Pressure [Right Arm] 133/75 Blood Pressure Mean [Right Arm] 94 02 Sat by Pulse Oximetry 97 Oxygen Delivery Method Room Air - Lab Data Lab results reviewed: Yes: I reviewed the patient's lab results. Lab Results 07/05/21 23:33: WBC 8.9, RBC 5.67, Hgb 17.5, Hct 54.1 H, MCV 95.4 H, MCH 30.9, MCHC 32.4, RDW 14.2, Plt Count 340, MPV 7.6, Neut % (Auto) 50.5, Lymph % (Auto) 35.2, Lake % (Auto) 10.5 H, Eos % (Auto) 2.0, Baso % (Auto) 1.8, Neut # (Auto) 4.5, Lymph # (Auto) 3.1, Lake # (Auto) 0.9, Eos # (Auto) 0.2, Baso # (Auto) 0.2 07/05/21 23:33: Sodium 133 L, Potassium 3.8, Chloride 99, Carbon Dioxide 31 H, Anion Gap 6.8, BUN 15, Creatinine 0.80, Estimated Creat Clear 192, Estimated GFR 104, Est GFR ( Amer) 126, Glucose 163 H, Calcium 8.7, Total Bilirubin 0.9, AST 52, ALT 55, Alkaline Phosphatase 56, C-Reactive Protein 0.7, Total Protein 6.8, Albumin 3.9, Globulin 2.9, Albumin/Globulin Ratio 1.3 07/05/21 23:33: Procalcitonin 0.051 07/05/21 23:35: SARS-CoV-2 (PCR) Not detected, Influenza A Untype (PCR) Not detected, Influenza Type B (PCR) Not detected 07/05/21 23:35: NT-Pro-B Natriuret Pep 66.1, TSH 3.78, Thyroxine (T4) 4.9 L 07/05/21 23:36: ESR 6 Result diagrams: 07/05/21 23:33 07/05/21 23:33 Orders (Tests/Meds): ED MEDICATIONS Generic Name Dose Route Start Last Admin Trade Name Freq PRN Reason Stop Dose Admin Sodium Chloride 1,000 mls @ 999 mls/hr 07/05/21 23:45 07/05/21 23:57 Sod Chlor 0.9% 1000ml Bag IV 07/06/21 00:45 999 mls/hr .Q1H1M CHUNG Administration Discontinued Medications Generic Name Dose Route Start Last Admin Trade Name Freq PRN Reason Stop Dose Admin Furosemide 40 mg 07/05/21 23:54 07/05/21 23:57 Furosemide 40mg/4ml Vial IV 07/05/21 23:55 40 mg ONCE ONE Administration - CT Data CT Scan: Head Time Received: 01:[address] Reviewed: Yes: I have viewed the radiologist's interpretation Preliminary Findings: Normal/NAD Medical Decision Narrative: had diuresis of 1500 improved with stabl eexam Headache HPI - General Chief Complaint: Headache Stated Complaint: Pressure in head & chest,legs swollen Time Seen by Provider: 07/05/21 23:53 Mode of Arrival: Ambulatory Source of Information: Patient, Medical Record Limitations: No Limitations Description of Symptoms (Recalled from ER Triage Doc. by RN): PT ON TESTOSTERONE- WAS TOLD TODAY HIS RED BLOOD CELLS WERE HIGH. PT HAS FOOT/ANKLE SWELLING, RED HEAD, RED FACE, HEADACHE. - History of Present Illness HPI Narrative: headache with recent card sudha SOSA Complaint: headache Onset (ago): day(s) Onset description: gradual Location: right Severity: moderate Associated symptoms: none Treatments prior to arrival: none - Related Data Home Medications Medication Instructions Recorded Confirmed Albuterol Coker
[2021-07-05 23:57] LABS: Alanine Aminotransferase 55 U/L (12-78); Albumin Level 3.9 g/dl (3.5-5.0); Albumin/Globulin Ratio 1.3 (1.1-1.8); Alkaline Phosphatase 56 U/L (38-126); Anion Gap 6.8 mEq/L (5-15); Aspartate Amino Transferase 52 U/L (17-59); Bilirubin,Total 0.9 mg/dl (0.2-1.3); Blood Urea Nitrogen 15 mg/dl (9-20); Calcium 8.7 mg/dl (8.4-10.2); Carbon Dioxide 31 mmol/L (22.0-30.0); Chloride 99 mmol/L (98-107); Creatinine Clearance Estimated 192 mL/min (50-200); Estimated Glomerular Filt Rate 104 ml/min (>60); GFR (African American) 126 ML/MIN (>60); Globulin 2.9 g/dL (1.3-3.2); Glucose 163 mg/dl (74-100); Potassium 3.8 mmoL/L (3.5-5.1); Sodium 133 mmol/L (136-145); Total Protein,Serum 6.8 g/dl (6.3-8.2)
[2021-07-05 23:59] LABS: Coronavirus 19, PCR Not Detected (NotDetected); Influenza A, PCR Not Detected (NotDetected); Influenza B, PCR Not Detected (NotDetected)
[2021-07-06] VITALS: BP 127/69
[2021-07-06] LABS: Basophils # 0.2 K/mm3 (0-0.2); Basophils % 1.8 % (0.1-2.0); Eosinophils # 0.2 K/mm3 (0.0-0.4); Hematocrit 54.1 % (42.0-52.0); Hemoglobin 17.5 g/dL (14.1-18.0); Lymphocytes # 3.1 K/mm3 (0.7-4.5); Lymphocytes % 35.2 % (10-50); Mean Corpuscular HGB Conc 32.4 g/dL (31.8-35.4); Mean Corpuscular Hemoglobin 30.9 pg (27.0-31.2); Mean Corpuscular Volume 95.4 fl (80-94); Mean Platelet Volume 7.6 fl (7.4-10.4); Monocytes # 0.9 K/mm3 (0.1-1.0); Monocytes % 10.5 % (1.7-9.3); Neutrophils # 4.5 K/mm3 (1.8-7.8); Neutrophils % 50.5 % (37.0-80.0); Platelet Count 340 K/mm3 (142-424); Red Blood Count 5.67 M/mm3 (4.60-6.20); Red Cell Distribution Width 14.2 % (11.5-17.5); White Blood Count 8.9 K/mm3 (4.8-10.8)
[2021-07-06 00:02] LABS: C-Reactive Protein 0.7 mg/L (0-4)
--- NOTE | 2021-07-06 00:03 | CT_ITS ---
PROCEDURE INFORMATION: Exam: CT Head Without Contrast Exam date and time: 07/06/2021 12:09 AM Age: 45 years old Clinical indication: Other: Headache; Patient HX: HX stroke; Additional info: PEDRO TECHNIQUE: Imaging protocol: Computed tomography of the head without contrast. Radiation optimization: All CT scans at this facility use at least one of these dose optimization techniques: automated exposure control; mA and/or kV adjustment per patient size (includes targeted exams where dose is matched to clinical indication); or iterative reconstruction. COMPARISON: No relevant prior studies available. FINDINGS: Brain: Mild atrophy. No intracranial hemorrhage. No mass. Mild encephalomalacia within LEFT parietal region. No definite edema. Cerebral ventricles: No hydrocephalus. Paranasal sinuses: No acute sinusitis. Mastoid air cells: No significant effusion. Orbital cavities: Unremarkable as visualized. Bones/joints: No acute fracture. Soft tissues: Unremarkable. IMPRESSION: No definite acute intracranial abnormality. If symptoms persist, consider MRI.
[2021-07-06 00:16] LABS: Procalcitonin 0.051 ng/mL (0.0-2.0)
[2021-07-06 00:35] LABS: NT Pro Brain Natriuretic Pep. 66.1 pg/mL (0-125)
--- NOTE | 2021-07-06 00:37 | PC.NURSE ---
patient given blanket and pillow, resting quietly at this time
[2021-07-06 00:43] LABS: T4 (Thyroxine) 4.9 ug/dl (5.53-11.0)
--- NOTE | 2021-07-06 00:44 | PC.NURSE ---
PT UPDATED WITH EXPECTED WAIT TIMES. NO ACUTE DISTRESS NOTED. WCM.
[2021-07-06 00:57] LABS: Thyroid Stimulating Hormone 3.78 uIU/mL (0.465-4.68)
[2021-07-06 00:59] LABS: Erythrocyte Sedimentation Rate 6 mm/hr (0-15)
[2021-07-06 01:00] VITALS: BP 100/62; PULSE 78; O2SAT 96
[2021-07-06 02:03] VITALS: BP 106/64; PULSE 68; RESP 16; TEMP 36.6; O2SAT 96
== END 2021-07-06 02:05 | disposition home or self-care (01) ==
PROVIDERS: Emergency Provider Emergency Medicine; PCP Physician Assistant
DX: R51.9 Headache, unspecified (principal); I10 Essential (primary) hypertension; K21.9 Gastro-esophageal reflux disease without esophagitis; F41.8 Other specified anxiety disorders
CPT/HCPCS: 70450; 80053; 83880; 84145; 84436; 84443; 85025; 85651; 86140; 96360; 96365; 96375; 99284; C9803; U0003; U0005

== ENCOUNTER → 2021-07-12 08:52 | Outpatient (CLI) | payer OTHER, SELFPAY ==
--- NOTE | 2021-07-12 08:52 | CA_ITS ---
APPROVED REPORT EXAM: Comprehensive 2D, Doppler, and color-flow Echocardiogram [employer]: Savannah Falcon CRT Ht: 6 ft 0 in Wt: 263lbs BSA: 2.39 BP: 118/77 mmHg Indications: sob, recent cva, AVR 2D Dimensions LVOT 1.80 cm (M/F) 1.5-2.5 LA Volume 36.00 mL LA Volume Index 15.10 mL/m2 (M/F) 16-34 M-Mode Dimensions RVDd 2.30 cm (0.9-2.6) LA Diam 3.20 cm (1.9-4.0) LVDd 5.45 cm (3.5-5.7) Ao Diam 4.43 cm (2.0-3.7) LVDs 3.12 cm (3.5-5.7) IVSd 1.30 cm (0.6-1.1) PWd 1.04 cm (0.6-1.1) EF (Teich) 73.30% FS 42.80% EDV (Teich) 144.40 mL TAPSE 1.61 (<1.7) ESV (Teich) 38.50 mL LV Diastology E Decel Time 375.00 (160-240 msec) E/A Ratio 0.99 MED E' 5.10 (< 7 cm/sec) MED A' 6.40 cm/s E'/MED E' Ratio 14.00 (>14) LAT E' 8.90 (<10 cm/sec) LAT A' 10.80 cm/s E/LAT E' Ratio 8.02 (>14) Aortic Valve LVOT Max 125.00 (70-110 cm/s) LVOT VTI 23.97 cm AoV Peak Timothy. 148.00 (50-130 cm/s) AO Peak GR. 8.80 mmHg AO Mean GR. 5.30 (<5 mmHg) AO VTI 26.69 (18-25 cm) ROMULO (VTI) 2.29 (2.5-4.5 cm2) Mitral Valve MV A Velocity 72.00 (40-130 cm/s) E/A Ratio 0.99 MV Decel. Time 375.00 (160-240 ms) Pulmonary Valve PV Peak Velocity 169.00 (50-150 cm/s) Tricuspid Valve TR P. Velocity 232.00 cm/s RAP Estimate 10.00 mmHg RVSP 31.50 mmHg Left Ventricle Left atrium is mildly enlarged, left ventricle is normal size, mild concentric hypertrophy, estimated ejection fraction 55% with no regional wall motion abnormality, diastolic parameters are inconclusive. Right Ventricle Right atrium and right ventricle are normal size and contractility. Aortic Valve There is bioprosthetic valve noted in the aortic position valve is well-seated, there is no aortic outflow obstruction or aortic insufficiency. Mitral Valve Mitral valve is grossly normal, there is trace mitral regurgitation. Tricuspid Valve Tricuspid valve grossly normal, there is trace tricuspid regurgitation, tricuspid regurgitation jet velocity is inadequate for calculation of the right ventricular systolic pressure. Pulmonic Valve Pulmonic valve is poorly visualized. Great Vessels Aortic root is normal size. Inferior vena cava is poorly visualized. Pericardium No significant pericardial effusion noted. Conclusion 1. Mildly enlarged left atrium, normal left ventricular size, mild concentric left ventricular hypertrophy, estimated ejection fraction 55% with no regional wall motion abnormality, diastolic parameters are inconclusive. 2. Normal functioning bioprosthetic valve in the aortic position without aortic flow obstruction or aortic insufficiency. 3. Trace mitral and tricuspid regurgitation. 4. No significant pericardial effusion. Electronically signed by : Dg Rolon MD 07/12/2021 20:55:17
== END ==
PROVIDERS: PCP Physician Assistant; Visit Provider Nurse Practitioner Family
DX: R06.00 Dyspnea, unspecified (principal); E78.5 Hyperlipidemia, unspecified; N52.9 Male erectile dysfunction, unspecified; Z86.73 Personal history of transient ischemic attack (TIA), and cerebral infarction without residual deficits; Z86.79 Personal history of other diseases of the circulatory system; Z95.2 Presence of prosthetic heart valve; Z98.890 Other specified postprocedural states
CPT/HCPCS: 93306

== ENCOUNTER 2022-03-03 15:29 | Emergency (ER) | payer OTHER, SELFPAY ==
[2022-03-03] VITALS (8 sets, daily range): BP systolic 122–152; BP diastolic 76–91; PULSE 80–90; RESP 17–22; TEMP 36.6; O2SAT 95–99; BMI 21.7
--- NOTE | 2022-03-03 16:20 | HMH.EDGENADL ---
Discharge Plan Disposition Patient Disposition: Home, Self-Care Condition: Good Chief Complaint: PAIN Prescriptions Prescriptions: No Action testosterone cypionate 200 mg/mL oil 100 mg SQ Q7D Qty: 0.5 0RF methocarbamol 500 mg tablet 500 mg PO trazodone 50 mg tablet 50 mg PO Label Comments: TAKE 1 & 1/2 TABLETS BY MOUTH EVERY NIGHT AT BEDTIME sennosides-docusate sodium [Senexon-S] 8.6-50 mg tablet 1 tab-cap PO bisacodyl [Dulcolax (bisacodyl)] 10 mg suppository 10 mg ME DAILY PRN pantoprazole 40 mg tablet,delayed release (DR/EC) 40 mg PO DAILY calcium carbonate [Tums] 200 mg calcium (500 mg) tablet,chewable 200 mg PO BID duloxetine [Cymbalta] 60 mg capsule,delayed release(DR/EC) 60 mg PO DAILY levetiracetam [Keppra] 1,000 mg tablet 1,000 mg PO BID [facility] 10 billion cell -200 mg capsule, sprinkle PO melatonin 3 mg capsule 3 mg PO HS PRN Linzess 145 mcg capsule 145 mcg PO DAILY Qty: 30 2RF testosterone cypionate 200 mg/mL oil 200 mg IM WEEKLY Qty: 1 5RF cetirizine 10 mg tablet See Rx Instructions .ROUTE .COMPLEX Qty: 90 3RF Dose Instruction: TAKE 1 TABLET BY MOUTH EVERY DAY Rx Instructions: TAKE 1 TABLET BY MOUTH EVERY DAY albuterol sulfate [ProAir HFA] 90 mcg/actuation HFA aerosol inhaler See Rx Instructions .ROUTE .COMPLEX Qty: 8.5 5RF Dose Instruction: INHALE 2 PUFFS BY MOUTH EVERY 6 HOURS . USE WITH SPACER Rx Instructions: INHALE 2 PUFFS BY MOUTH EVERY 6 HOURS . USE WITH SPACER duloxetine 60 mg capsule,delayed release(DR/EC) See Rx Instructions .Route .COMPLEX Qty: 90 3RF Rx Instructions: TAKE 1 CAPSULE BY MOUTH EVERY DAY losartan-hydrochlorothiazide 50-12.5 mg tablet See Rx Instructions .ROUTE .COMPLEX Qty: 90 3RF Dose Instruction: TAKE 1 TABLET BY MOUTH EVERY DAY Rx Instructions: TAKE 1 TABLET BY MOUTH EVERY DAY testosterone cypionate 200 mg/mL oil 200 mg IM WEEKLY Qty: 4 5RF famotidine 20 mg tablet 20 mg PO DAILY Qty: 90 3RF clotrimazole 1 % cream See Rx Instructions .ROUTE .COMPLEX Qty: 45 1RF Dose Instruction: APPLY 1 APPLICATION TOPICALLY TWICE A DAY Rx Instructions: APPLY 1 APPLICATION TOPICALLY TWICE A DAY (DME) BD Integra Syringe 3 mL 25 gauge x 5/8 syringe See Rx Instructions .Route Qty: 20 0RF Rx Instructions: Use for injection of testosterone enoxaparin 40 mg/0.4 mL syringe See Rx Instructions .ROUTE .COMPLEX Qty: 4 2RF Dose Instruction: INJECT 1 SYRINGE UNDER THE SKIN EVERY DAY FOR 30 DAYS Rx Instructions: INJECT 1 SYRINGE UNDER THE SKIN EVERY DAY FOR 30 DAYS (DME) BD PrecisionGlide Non-Sterile 18 gauge x 1 1/2 needle See Rx Instructions .Route Qty: 25 0RF Rx Instructions: As directed (DME) BD PrecisionGlide Non-Sterile 22 gauge x 1 1/2 needle See Rx Instructions .Route Qty: 25 0RF Rx Instructions: As directed (DME) syringe with needle, safety [Monoject Safety Syringes] 3 mL 22 gauge x 1 syringe See Rx Instructions .Route Qty: 25 0RF Rx Instructions: As directed gabapentin 400 mg capsule See Rx Instructions .ROUTE .COMPLEX Qty: 90 1RF Dose Instruction: TAKE 1 CAPSULE BY MOUTH THREE TIMES A DAY Rx Instructions: TAKE 1 CAPSULE BY MOUTH THREE TIMES A DAY hydrocodone-acetaminophen 5-325 mg tablet 1 tab PO Q4-6H PRN (Reason: pain) Qty: 180 0RF tizanidine 4 mg tablet 4 mg PO Q8H PRN (Reason: muscle spasticity) Qty: 90 2RF tamsulosin 0.4 MG capsule 0.4 mg PO BID losartan 50 MG tablet 50 mg PO DAILY atorvastatin 20 MG tablet See Rx Instructions .Route .COMPLEX Rx Instructions: TAKE 1 TABLET BY MOUTH EVERY DAY aspirin 81 MG tablet,delayed release (DR/EC) See Rx Instructions .Route .COMPLEX Rx Instructions: TAKE 1 TABLET BY MOUTH EVERY DA
--- NOTE | 2022-03-03 16:27 | PC.NURSE ---
urinal provided to pt for urine sample
--- NOTE | 2022-03-03 16:29 | PC.NURSE ---
covid swab sent to the lab
[2022-03-03 16:37] LABS: Coronavirus 19, PCR Not Detected (NotDetected); Influenza A, PCR Not Detected (NotDetected); Influenza B, PCR Not Detected (NotDetected)
[2022-03-03 17:04] LABS: Basophils # 0.1 K/mm3 (0-0.2); Basophils % 1.3 % (0.1-2.0); Eosinophils # 0.2 K/mm3 (0.0-0.4); Eosinophils % 1.8 % (0.1-12.0); Hematocrit 50.7 % (42.0-52.0); Hemoglobin 16.9 g/dL (14.1-18.0); Lymphocytes # 2.2 K/mm3 (0.7-4.5); Lymphocytes % 25.2 % (10-50); Mean Corpuscular HGB Conc 33.3 g/dL (31.8-35.4); Mean Corpuscular Hemoglobin 32.1 pg (27.0-31.2); Mean Corpuscular Volume 96.1 fl (80-94); Mean Platelet Volume 7.8 fl (7.4-10.4); Monocytes % 10.9 % (1.7-9.3); Neutrophils # 5.3 K/mm3 (1.8-7.8); Neutrophils % 60.7 % (37.0-80.0); Platelet Count 451 K/mm3 (142-424); Red Blood Count 5.28 M/mm3 (4.60-6.20); Red Cell Distribution Width 15.1 % (11.5-17.5); White Blood Count 8.7 K/mm3 (4.8-10.8)
[2022-03-03 17:07] LABS: Chloride 97 mmol/L (98-107); Potassium 3.7 mmoL/L (3.5-5.1); Sodium 137 mmol/L (136-145)
[2022-03-03 17:09] LABS: Blood Urea Nitrogen 21 mg/dl (9-20); Creatinine Clearance Estimated 156 mL/min (50-200); Estimated Glomerular Filt Rate 144 ml/min (>60); GFR (African American) 175 ML/MIN (>60)
[2022-03-03 17:10] LABS: Alanine Aminotransferase 37 U/L (12-78); Albumin Level 4.9 g/dl (3.5-5.0); Albumin/Globulin Ratio 1.5 (1.1-1.8); Alkaline Phosphatase 106 U/L (38-126); Anion Gap 12.7 mEq/L (5-15); Aspartate Amino Transferase 39 U/L (17-59); Bilirubin,Total 1.1 mg/dl (0.2-1.3); Calcium 10.4 mg/dl (8.4-10.2); Carbon Dioxide 31 mmol/L (22.0-30.0); Globulin 3.3 g/dL (1.3-3.2); Glucose 98 mg/dl (74-100); Total Protein,Serum 8.2 g/dl (6.3-8.2)
[2022-03-03 17:11] LABS: Magnesium 2.3 mg/dl (1.6-2.3)
[2022-03-03 17:58] LABS: Microscopic, Urine URINE MICROSCOPIC (MICROSCOPIC)
[2022-03-03 18:01] LABS: Appearance,Urine CLEAR (Clear); Bilirubin,Urine Negative (Negative); Blood, Urine Negative (Negative); Color,Urine YELLOW (Yellow); Glucose,Urine (UA) Negative (Negative); Ketones,Urine Negative (Negative); Leukocyte Esterase,Urine Negative (Negative); Nitrate,Urine Negative (Negative); PH,Urine 5.5 (5.0-8.5); Protein,Urine Negative (Negative); Specific Gravity, Urine >= 1.030 (1.005-1.030); Urobilinogen,Urine 0.2 EU/dl (0.2)
[2022-03-03 18:13] LABS: Bacteria,Urine Trace /lpf; Mucus,Urine 1+ /lpf; RBC,Urine Occasional #/hpf (0-3); WBC,Urine Occasional #/hpf (0-3)
[2022-03-03 18:14] LABS: Squamous Epithelial Cell,Urine Occasional #/hpf (0-5)
== END 2022-03-03 18:40 | disposition home or self-care (01) ==
LOC: UTC 15:37 → ER 15:57
PROVIDERS: Emergency Provider Emergency Medicine; PCP Physician Assistant
DX: M79.10 Myalgia, unspecified site (principal); Z79.82 Long term (current) use of aspirin; Z79.899 Other long term (current) drug therapy; Z86.73 Personal history of transient ischemic attack (TIA), and cerebral infarction without residual deficits; F41.9 Anxiety disorder, unspecified; F32.A Depression, unspecified; K21.9 Gastro-esophageal reflux disease without esophagitis; G62.9 Polyneuropathy, unspecified; G47.33 Obstructive sleep apnea (adult) (pediatric); N52.9 Male erectile dysfunction, unspecified
CPT/HCPCS: 80053; 81001; 83735; 85025; 96365; 96375; 99284; C9803; U0003; U0005

== ENCOUNTER → 2022-04-14 08:49 | Outpatient (POV) | payer OTHER, SELFPAY ==
[2022-04-14 09:12] VITALS: BP 107/61; PULSE 82; RESP 18; O2SAT 97; BMI 33.9
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
== END | disposition home or self-care (01) ==
PROVIDERS: PCP Physician Assistant; Visit Provider Nurse Practitioner Family
DX: M54.16 Radiculopathy, lumbar region (principal); M54.50 Low back pain, unspecified; M79.604 Pain in right leg; M25.551 Pain in right hip; Z98.1 Arthrodesis status
CPT/HCPCS: 99202; G0463

== ENCOUNTER → 2022-04-19 08:53 | Outpatient (POV) | payer OTHER, SELFPAY ==
[2022-04-19 09:12] VITALS: BP 161/91; PULSE 91; RESP 18; O2SAT 99; BMI 25.7
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
== END | disposition home or self-care (01) ==
PROVIDERS: PCP Physician Assistant; Visit Provider Nurse Anesthetist, Certified Registered
DX: M54.50 Low back pain, unspecified (principal); M54.16 Radiculopathy, lumbar region; M79.604 Pain in right leg; Z98.1 Arthrodesis status
CPT/HCPCS: 99212; G0463

== ENCOUNTER → 2022-04-22 13:43 | Outpatient (CLI) | payer OTHER, SELFPAY ==
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
== END ==
PROVIDERS: PCP Physician Assistant; Visit Provider Nurse Practitioner Family
DX: M54.50 Low back pain, unspecified (principal)
CPT/HCPCS: 70200; 72110

== ENCOUNTER → 2022-04-29 09:11 | Outpatient (CLI) | payer OTHER, SELFPAY ==
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
== END ==
PROVIDERS: PCP Physician Assistant; Visit Provider Nurse Practitioner Family
DX: M54.50 Low back pain, unspecified (principal)
CPT/HCPCS: 72131

== ENCOUNTER → 2022-05-12 14:39 | Outpatient (POV) | payer OTHER, SELFPAY ==
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
[2022-05-12 15:29] VITALS: BP 119/76; PULSE 101; RESP 18; O2SAT 97; BMI 27.8
== END ==
PROVIDERS: PCP Physician Assistant; Visit Provider Nurse Practitioner Family
DX: M51.16 Intervertebral disc disorders with radiculopathy, lumbar region (principal); M79.604 Pain in right leg; M47.26 Other spondylosis with radiculopathy, lumbar region; M54.50 Low back pain, unspecified
CPT/HCPCS: 99212; G0463

== ENCOUNTER 2022-11-25 14:53 | Observation (INO) | payer OTHER, SELFPAY ==
[2022-11-25] VITALS (10 sets, daily range): BP systolic 124–138; BP diastolic 72–96; PULSE 84–104; RESP 18–19; TEMP 36.8–37.1; O2SAT 93–99; BMI 33.6
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
--- NOTE | 2022-11-25 15:14 | CT_ITS ---
PROCEDURE INFORMATION: Exam: CT Thoracic Spine Without and With Contrast Exam date and time: 11/25/2022 4:09 PM Age: 47 years old Clinical indication: Pain in thoracic spine; Additional info: Pain, spine stimulator removed, h/o abscess TECHNIQUE: Imaging protocol: Computed tomography of the thoracic spine without and with contrast. Radiation optimization: All CT scans at this facility use at least one of these dose optimization techniques: automated exposure control; mA and/or kV adjustment per patient size (includes targeted exams where dose is matched to clinical indication); or iterative reconstruction. Contrast material: ISOVUE; Contrast volume: 75 ml; Contrast route: IV; REPORTING DATA: Count of CT and Cardiac NM exams in prior 12 months: This patient has received [address] and 0 known cardiac nuclear medicine studies in the 12 months prior to the current study. COMPARISON: CT LUMBAR SPINE WO CON 04/29/2022 9:20 AM FINDINGS: Bones/joints: There is multilevel degenerative change with loss of intervertebral disc space and anterior osteophyte formation. There is no evidence for fluid collection on this noncontrast study. If concern for a abscess persists, MRI would be more sensitive within the spinal canal. Soft tissues: Unremarkable. Lymph nodes: There are calcified mediastinal lymph nodes likely reflecting prior granulomatous disease. IMPRESSION: There is no evidence for fluid collection on this noncontrast study. If concern for a abscess persists, MRI would be more sensitive within the spinal canal.
[2022-11-25 15:25] LABS: Basophils % 0.5 % (0.1-2.0); Eosinophils # 0.1 K/mm3 (0.0-0.4); Eosinophils % 0.6 % (0.1-12.0); Hematocrit 56.3 % (42.0-52.0); Lymphocytes # 1.7 K/mm3 (0.7-4.5); Mean Corpuscular HGB Conc 32.2 g/dL (31.8-35.4); Mean Corpuscular Volume 96.3 fl (80-94); Mean Platelet Volume 7.4 fl (7.4-10.4); Monocytes # 1.1 K/mm3 (0.1-1.0); Monocytes % 11.5 % (1.7-9.3); Neutrophils # 6.5 K/mm3 (1.8-7.8); Neutrophils % 69.5 % (37.0-80.0); Platelet Count 293 K/mm3 (142-424); Red Blood Count 5.85 M/mm3 (4.60-6.20); Red Cell Distribution Width 13.7 % (11.5-17.5); White Blood Count 9.3 K/mm3 (4.8-10.8)
[2022-11-25 15:34] LABS: Chloride 102 mmol/L (98-107); Sodium 139 mmol/L (136-145)
[2022-11-25 15:35] LABS: Potassium 4.2 mmoL/L (3.5-5.1)
--- NOTE | 2022-11-25 15:36 | PC.NURSE ---
cv lab staff gave verbal report to ER MD Solomon
[2022-11-25 15:37] LABS: Alanine Aminotransferase 36 U/L (12-78); Albumin Level 4.5 g/dl (3.5-5.0); Albumin/Globulin Ratio 1.4 (1.1-1.8); Alkaline Phosphatase 64 U/L (38-126); Anion Gap 14.2 mEq/L (5-15); Aspartate Amino Transferase 46 U/L (17-59); Bilirubin,Total 0.7 mg/dl (0.2-1.3); Blood Urea Nitrogen 26 mg/dl (9-20); Calcium 9.4 mg/dl (8.4-10.2); Carbon Dioxide 27 mmol/L (22.0-30.0); Creatine Kinase 221 U/L (55-170); Creatinine Clearance Estimated 131 mL/min (50-200); Estimated Glomerular Filt Rate 71 ml/min (>60); GFR (African American) 86 ML/MIN (>60); Globulin 3.3 g/dL (1.3-3.2); Glucose 104 mg/dl (74-100); Total Protein,Serum 7.8 g/dl (6.3-8.2)
[2022-11-25 15:43] LABS: C-Reactive Protein 1.6 mg/L (0-4)
[2022-11-25 15:52] LABS: Erythrocyte Sedimentation Rate 2 mm/hr (0-15)
[2022-11-25 15:55] LABS: Hemoglobin 18.2 g/dL (14.1-18.0)
--- NOTE | 2022-11-25 16:03 | PC.NURSE ---
Pt. to CT
--- NOTE | 2022-11-25 16:03 | PC.NURSE ---
pt to CT
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
--- NOTE | 2022-11-25 16:35 | PC.NURSE ---
Rounded on patient; updated on plan of care. Call rizvi within reach
[2022-11-25 17:16] LABS: Lactic Acid 1.2 mmol/L (0.7-2.1)
--- NOTE | 2022-11-25 17:16 | PC.NURSE ---
[facility] has been contacted to get in touch with MD environmental engineer for pain management
--- NOTE | 2022-11-25 17:23 | PC.NURSE ---
rounded on pt, pt given jose mist to drink, call button in reach. States no other needs at this time
--- NOTE | 2022-11-25 17:43 | PC.NURSE ---
Rounded on patient; updated on plan of care. Call rizvi within reach
--- NOTE | 2022-11-25 18:11 | PC.NURSE ---
notified bathhouse keeper of admission
--- NOTE | 2022-11-25 18:43 | PC.NURSE ---
Called report to Jackie KWAN
--- NOTE | 2022-11-25 19:30 | PC.NURSE ---
pt arrived to floor at this time
--- NOTE | 2022-11-25 19:31 | PC.NURSE ---
1925 47 yo male arrived to the floor via stretcher and admitted to room 213.
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
--- NOTE | 2022-11-25 22:55 | PC.NURSE ---
2100 BLADDER SCAN ZERO READING.
[2022-11-26 04:00] VITALS: BP 132/79; PULSE 96; RESP 20; TEMP 36.9; O2SAT 94; BMI 32.3
--- NOTE | 2022-11-26 04:32 | PC.NURSE ---
PATIENT HAS REQUIRED PAIN MEDS THROUGHOUT THE SHIFT. PATIENT REPORTS MEDS ARE HELPFUL BUT NOT LONG LASTING. RATES PAIN 7/10. VITAL SIGNS STABLE/AFEBRILE.
[2022-11-26 07:48] LABS: Eosinophils % 0.1 % (0.1-12.0); Hematocrit 50.9 % (42.0-52.0); Hemoglobin 16.9 g/dL (14.1-18.0); Lymphocytes # 0.9 K/mm3 (0.7-4.5); Lymphocytes % 9.6 % (10-50); Mean Corpuscular HGB Conc 33.1 g/dL (31.8-35.4); Mean Corpuscular Hemoglobin 31.6 pg (27.0-31.2); Mean Corpuscular Volume 95.4 fl (80-94); Mean Platelet Volume 7.8 fl (7.4-10.4); Monocytes # 1.1 K/mm3 (0.1-1.0); Monocytes % 11.6 % (1.7-9.3); Neutrophils # 7.3 K/mm3 (1.8-7.8); Neutrophils % 78.7 % (37.0-80.0); Platelet Count 303 K/mm3 (142-424); Red Blood Count 5.34 M/mm3 (4.60-6.20); Red Cell Distribution Width 13.7 % (11.5-17.5); White Blood Count 9.3 K/mm3 (4.8-10.8)
[2022-11-26 08:00] VITALS: BP 136/87; PULSE 77; RESP 18; TEMP 36.6; O2SAT 97
[2022-11-26 08:11] LABS: Chloride 103 mmol/L (98-107); Sodium 135 mmol/L (136-145)
[2022-11-26 08:14] LABS: Alanine Aminotransferase 29 U/L (12-78); Albumin Level 3.8 g/dl (3.5-5.0); Albumin/Globulin Ratio 1.5 (1.1-1.8); Alkaline Phosphatase 60 U/L (38-126); Aspartate Amino Transferase 33 U/L (17-59); Bilirubin,Total 0.7 mg/dl (0.2-1.3); Blood Urea Nitrogen 30 mg/dl (9-20); Calcium 8.9 mg/dl (8.4-10.2); Carbon Dioxide 23 mmol/L (22.0-30.0); Creatinine Clearance Estimated 173 mL/min (50-200); Estimated Glomerular Filt Rate 103 ml/min (>60); GFR (African American) 125 ML/MIN (>60); Globulin 2.6 g/dL (1.3-3.2); Glucose 114 mg/dl (74-100); Total Protein,Serum 6.4 g/dl (6.3-8.2)
[2022-11-26 08:15] LABS: Magnesium 2.2 mg/dl (1.6-2.3)
--- NOTE | 2022-11-26 08:58 | HMH.PHAINT1 ---
Pharmacy Intervention Comments: MEDICATION RECONCILIATION COMPLETE USING LIST FROM MOST RECENT MD OFFICE VISIT, EXTERNAL PHARMACY FILL HISTORY, AND RACHELE REPORT.
[2022-11-26 09:01] LABS: Vitamin B12 303 pg/mL (239-931)
[2022-11-26 11:46] VITALS: BP 117/72; PULSE 91; RESP 18; TEMP 37; O2SAT 96
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
[2022-11-26 15:06] VITALS: BP 150/84; PULSE 86; RESP 18; TEMP 37.2; O2SAT 98
[2022-11-26 19:54] VITALS: BP 144/86; PULSE 79; RESP 19; TEMP 36.9; O2SAT 94
[2022-11-27] VITALS: BP 142/76; PULSE 69; RESP 19; TEMP 37; O2SAT 94
--- NOTE | 2022-11-27 02:38 | PC.NURSE ---
Patient still complaining of nausea. 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 Give an extra dose of PRN Zophran 4mg IV now.
[2022-11-27 04:00] VITALS: BP 107/52; PULSE 71; RESP 20; TEMP 36.4; O2SAT 98; BMI 19.4
--- NOTE | 2022-11-27 05:05 | PC.NURSE ---
Patient has not had much sleep tonight. Has had multiple BMs. thrown up, and been in pain. See MAR. Patient has complained of pain in the bilat legs. He said he is nausea because his dinner did not settle well in his stomach. No other issues noted by patient
[2022-11-27 07:19] LABS: Basophils % 0.2 % (0.1-2.0); Hematocrit 49.2 % (42.0-52.0); Hemoglobin 15.9 g/dL (14.1-18.0); Lymphocytes # 1.2 K/mm3 (0.7-4.5); Lymphocytes % 9.8 % (10-50); Mean Corpuscular HGB Conc 32.3 g/dL (31.8-35.4); Mean Corpuscular Hemoglobin 31.7 pg (27.0-31.2); Mean Corpuscular Volume 98.4 fl (80-94); Mean Platelet Volume 8.3 fl (7.4-10.4); Monocytes # 1.4 K/mm3 (0.1-1.0); Monocytes % 10.9 % (1.7-9.3); Neutrophils # 9.9 K/mm3 (1.8-7.8); Platelet Count 287 K/mm3 (142-424); Red Cell Distribution Width 13.7 % (11.5-17.5); White Blood Count 12.5 K/mm3 (4.8-10.8)
[2022-11-27 07:26] LABS: Chloride 102 mmol/L (98-107); Sodium 136 mmol/L (136-145)
[2022-11-27 07:29] LABS: Blood Urea Nitrogen 24 mg/dl (9-20); Creatinine Clearance Estimated 104 mL/min (50-200); Estimated Glomerular Filt Rate 103 ml/min (>60); GFR (African American) 125 ML/MIN (>60)
[2022-11-27 07:30] LABS: Calcium 8.7 mg/dl (8.4-10.2); Carbon Dioxide 27 mmol/L (22.0-30.0); Glucose 107 mg/dl (74-100)
[2022-11-27 08:00] VITALS: BP 141/84; PULSE 83; RESP 18; TEMP 37; O2SAT 96
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
[2022-11-27 11:28] VITALS: BP 137/93; PULSE 77; RESP 18; TEMP 36.6; O2SAT 98
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
--- NOTE | 2022-11-27 14:01 | HMH.PHAINT1 ---
Pharmacy Intervention Comments: DISCHARGE MEDICATION COUNSELING PROVIDED. DISCUSSED STARTING THE FOLLOWING: -DEXAMETHASONE (STEROID FOR PAIN/INFLAMMATION, TWICE DAILY, TAKE WITH BREAKFAST AND DINNER, MAY CAUSE INSOMNIA, UPSET STOMACH, ELEVATED BLOOD SUGAR) -ZOFRAN (FOR N/V, FAIRLY WELL TOLERATED, HEADACHE POSSIBLE) -PERCOCET (EVERY 6 HOURS NEEDED FOR SEVERE PAIN, IF NOT IN PAIN DO NOT TAKE, DO NOT TAKE WITH NORCO, SEDATION, N/V, CONSTIPATION POSSIBLE) -PANTOPRAZOLE (FOR STOMACH ACID, AT BEDTIME, FAIRLY WELL TOLERATED) PATIENT VERBALIZED NO QUESTIONS AT THIS TIME.
--- NOTE | 2022-11-28 15:02 | CARE MANAGER ---
Spoke with patient for post-discharge phone interview, no issues noted.
== END 2022-11-27 12:34 | disposition home or self-care (01) ==
LOC: ER 17:55 → 2ND 18:51
PROVIDERS: Nurse Practitioner Family; Admitting Provider Internal Medicine Adolescent Medicine; Emergency Provider Emergency Medicine; PCP Physician Assistant; Visit Provider Internal Medicine Adolescent Medicine
DX: K21.9 Gastro-esophageal reflux disease without esophagitis (principal); M54.16 Radiculopathy, lumbar region; M62.838 Other muscle spasm; G62.9 Polyneuropathy, unspecified; Z86.73 Personal history of transient ischemic attack (TIA), and cerebral infarction without residual deficits; E78.2 Mixed hyperlipidemia; I10 Essential (primary) hypertension; Z79.899 Other long term (current) drug therapy
CPT/HCPCS: 36415; 72130; 72133; 80048; 80053; 82550; 82607; 83605; 83735; 85025; 85651; 86140; 93971; 97163; 99285; G0378; J2405; Q9967

== ENCOUNTER 2023-06-29 18:23 | Outpatient (CLI) | payer OTHER, SELFPAY ==
[2023-06-29 18:22] LABS: Basophils # 0.1 K/mm3 (0-0.2); Basophils % 2.4 % (0.1-2.0); Eosinophils # 0.1 K/mm3 (0.0-0.4); Eosinophils % 2.2 % (0.1-12.0); Hematocrit 51.5 % (42.0-52.0); Hemoglobin 16.7 g/dL (14.1-18.0); Lymphocytes # 1.1 K/mm3 (0.7-4.5); Lymphocytes % 32.3 % (10-50); Mean Corpuscular HGB Conc 32.5 g/dL (31.8-35.4); Mean Corpuscular Volume 98.3 fl (80-94); Mean Platelet Volume 8.4 fl (7.4-10.4); Monocytes # 0.4 K/mm3 (0.1-1.0); Monocytes % 12.6 % (1.7-9.3); Neutrophils # 1.7 K/mm3 (1.8-7.8); Neutrophils % 50.5 % (37.0-80.0); Platelet Count 276 K/mm3 (142-424); Red Blood Count 5.23 M/mm3 (4.60-6.20); Red Cell Distribution Width 13.8 % (11.5-17.5); White Blood Count 3.3 K/mm3 (4.8-10.8)
[2023-06-29 18:50] LABS: Alanine Aminotransferase 39 U/L (12-78); Albumin Level 4.6 g/dl (3.5-5.0); Albumin/Globulin Ratio 2.1 (1.1-1.8); Alkaline Phosphatase 81 U/L (38-126); Anion Gap 11.9 mEq/L (5-15); Aspartate Amino Transferase 44 U/L (17-59); Bilirubin,Total 0.9 mg/dl (0.2-1.3); Blood Urea Nitrogen 21 mg/dl (9-20); Calcium 9.5 mg/dl (8.4-10.2); Carbon Dioxide 30 mmol/L (22.0-30.0); Chloride 100 mmol/L (98-107); Chol/HDL Ratio 3.8 (1-3.5); Cholesterol 176 mg/dl (140-200); Estimated Glomerular Filt Rate 103 ml/min (>60); GFR (African American) 125 ML/MIN (>60); Globulin 2.2 g/dL (1.3-3.2); Glucose 55 mg/dl (74-100); HDL Cholesterol 46 mg/dl (40-60); Potassium 3.9 mmoL/L (3.5-5.1); Sodium 138 mmol/L (136-145); Total Protein,Serum 6.8 g/dl (6.3-8.2); Triglycerides 138 mg/dl (30-150); VLDL Cholesterol 28 mg/dL (0-40)
[2023-06-29 19:01] LABS: Direct LDL Cholesterol 90.13 mg/dL (100-129)
[2023-06-29 19:19] LABS: Thyroid Stimulating Hormone 1.87 uIU/mL (0.465-4.68)
[2023-07-15 17:52] LABS: Testosterone, Total, LC/MS 108 ng/dL (.)
== END 2023-06-29 23:59 ==
LOC: LAB.DROPOF 18:23
PROVIDERS: PCP Nurse Practitioner Family; Visit Provider Nurse Practitioner Family
DX: E29.1 Testicular hypofunction (principal); E55.9 Vitamin D deficiency, unspecified; Z68.32 Body mass index [BMI] 32.0-32.9, adult
CPT/HCPCS: 80053; 80061; 82306; 84403; 84443; 85025

== ENCOUNTER 2023-07-08 11:21 | Emergency (ER) | payer OTHER, SELFPAY ==
[2023-07-08 11:23] VITALS: BP 135/79; PULSE 96; RESP 18; TEMP 36.8; O2SAT 97; BMI 35.4
--- NOTE | 2023-07-08 11:38 | PC.NURSE ---
Dr Meeks at bedside
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
[2023-07-08] MEDS: KETOROLAC 30MG/ML VIAL 15 MG IV (12:13)
[2023-07-08] MEDS: ACETAMINOPHEN 1,000MG/100ML VIAL 1000 MG IV (12:13)
[2023-07-08] MEDS: OXYCODONE 5MG IMMEDIATE RELEASE TABLET 5 MG PO (12:13)
[2023-07-08] MEDS: METHOCARBAMOL 500MG TABLET 1000 MG PO (12:14)
[2023-07-08] MEDS: LIDOCAINE 5% TRANSDERMAL PATCH 1 EACH TP (12:14)
[2023-07-08 12:15] LABS: Coronavirus 19, PCR Not Detected (NotDetected); Influenza A, PCR Not Detected (NotDetected); Influenza B, PCR Not Detected (NotDetected)
[2023-07-08 12:31] VITALS: BP 107/68; PULSE 81; RESP 16
--- NOTE | 2023-07-08 12:44 | PC.NURSE ---
Post void bladder scan shows 7ml.
[2023-07-08 12:47] LABS: Microscopic, Urine URINE MICROSCOPIC (MICROSCOPIC)
[2023-07-08 12:49] LABS: Appearance,Urine CLEAR (Clear); Bilirubin,Urine Negative (Negative); Blood, Urine Negative (Negative); Color,Urine YELLOW (Yellow); Glucose,Urine (UA) Negative (Negative); Ketones,Urine Negative (Negative); Leukocyte Esterase,Urine Negative (Negative); Nitrate,Urine Negative (Negative); Protein,Urine Negative (Negative); Specific Gravity, Urine 1.025 (1.005-1.030)
[2023-07-08 13:00] VITALS: BP 110/77; PULSE 76; RESP 18
[2023-07-08 13:00] LABS: Bacteria,Urine Trace /lpf; Squamous Epithelial Cell,Urine Occasional #/hpf (0-5)
[2023-07-08 13:30] VITALS: BP 116/65; PULSE 72; RESP 18
--- NOTE | 2023-07-08 13:41 | PC.NURSE ---
Dr. Meeks s/w reading radiologist for Thorasic spine ct, Dr. Emily Lin.
[2023-07-08 13:58] VITALS: BP 116/65; PULSE 80; RESP 18; TEMP 36.8; O2SAT 98
--- NOTE | 2023-07-08 14:00 | PC.NURSE ---
Pt ambulatory with no assistance
== END 2023-07-08 14:03 | disposition home or self-care (01) ==
PROVIDERS: Emergency Provider Emergency Medicine; PCP Physician Assistant
DX: M54.9 Dorsalgia, unspecified (principal); M79.604 Pain in right leg; M79.605 Pain in left leg; I10 Essential (primary) hypertension; K21.9 Gastro-esophageal reflux disease without esophagitis; E78.5 Hyperlipidemia, unspecified
CPT/HCPCS: 72128; 72131; 81001; 87636; 96374; 96375; 99284; J0131

== ENCOUNTER 2023-07-13 10:12 | Outpatient (CLI) | payer OTHER, SELFPAY ==
--- NOTE | 2023-07-13 10:16 | XR_ITS ---
FINAL REPORT CLINICAL HISTORY: Foot pain COMPARISON: None FINDINGS: RIGHT FOOT: Three views of the right foot were obtained. There is no acute fracture or dislocation. Mild degenerative changes present in the right foot. There is no soft tissue abnormality. IMPRESSION: No acute bony abnormality. Mild degenerative change. Reviewed, Interpreted and Dictated by Yair Gregory III, MD Transcribed by Ernestina Perrin Authenticated and [facility]
--- NOTE | 2023-07-13 10:16 | XR_ITS ---
FINAL REPORT CLINICAL HISTORY: Foot pain COMPARISON: None FINDINGS: LEFT FOOT: Three views of the left foot were obtained. There is no acute fracture or dislocation. Mild to moderate degenerative changes noted at the first MTP joint, with mild degenerative changes elsewhere throughout the foot. A plantar calcaneal spur is present. There is no soft tissue abnormality. IMPRESSION: No acute bony abnormality. Mild to moderate changes at the first MTP joint, with mild degenerative change elsewhere throughout the foot. Reviewed, Interpreted and Dictated by Yair Gregory III, MD Transcribed by Ernestina Perrin Authenticated and [facility]
== END 2023-07-13 23:59 | disposition home or self-care (01) ==
LOC: RAD 10:13
PROVIDERS: PCP Physician Assistant; Visit Provider Nurse Practitioner
DX: M79.671 Pain in right foot (principal); M79.672 Pain in left foot
CPT/HCPCS: 73630

== ENCOUNTER 2023-10-11 19:47 | Emergency (ER) | payer OTHER, SELFPAY ==
[2023-10-11 19:49] VITALS: BP 138/80; PULSE 69; RESP 18; TEMP 36.7; O2SAT 97; BMI 33.9
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
[2023-10-11 20:35] LABS: Basophils # 0.1 K/mm3 (0-0.2); Chloride 106 mmol/L (98-107); Eosinophils # 0.1 K/mm3 (0.0-0.4); Eosinophils % 1.6 % (0.1-12.0); Hematocrit 45.1 % (42.0-52.0); Lymphocytes # 1.6 K/mm3 (0.7-4.5); Lymphocytes % 29.6 % (10-50); Mean Corpuscular HGB Conc 33.2 g/dL (31.8-35.4); Mean Corpuscular Hemoglobin 32.3 pg (27.0-31.2); Mean Corpuscular Volume 97.3 fl (80-94); Mean Platelet Volume 7.6 fl (7.4-10.4); Monocytes # 0.5 K/mm3 (0.1-1.0); Neutrophils # 3.2 K/mm3 (1.8-7.8); Neutrophils % 57.8 % (37.0-80.0); Platelet Count 285 K/mm3 (142-424); Red Blood Count 4.64 M/mm3 (4.60-6.20); Red Cell Distribution Width 13.8 % (11.5-17.5); White Blood Count 5.5 K/mm3 (4.8-10.8)
[2023-10-11 20:36] LABS: Sodium 140 mmol/L (136-145)
[2023-10-11 20:38] LABS: Alanine Aminotransferase 24 U/L (12-78); Aspartate Amino Transferase 31 U/L (17-59); Blood Urea Nitrogen 38 mg/dl (9-20); Creatinine Clearance Estimated 161 mL/min (50-200); Estimated Glomerular Filt Rate 90 ml/min (>60); GFR (African American) 109 ML/MIN (>60)
[2023-10-11 20:39] LABS: Albumin Level 4.2 g/dl (3.5-5.0); Albumin/Globulin Ratio 1.7 (1.1-1.8); Alkaline Phosphatase 79 U/L (38-126); Bilirubin,Total 0.3 mg/dl (0.2-1.3); Calcium 9.2 mg/dl (8.4-10.2); Carbon Dioxide 28 mmol/L (22.0-30.0); Globulin 2.5 g/dL (1.3-3.2); Glucose 90 mg/dl (74-100); Total Protein,Serum 6.7 g/dl (6.3-8.2)
[2023-10-11 20:41] LABS: Activated Partial Thrombo Time 25.1 seconds (22.8-30.6); Prothrombin Time 10.2 seconds (10.1-12.5)
[2023-10-11] MEDS: 0.9 % SODIUM CHLORIDE 50 ML VIAL IV (20:57)
[2023-10-11] MEDS: IOPAMIDOL-370 (76%);100ML BOTTLE 100 ML IV (20:57)
[2023-10-11] MEDS: SODIUM CHLORIDE 0.9% 10ML SYR (RAD ONLY) 10 ML IV (20:58)
[2023-10-11 21:11] VITALS: BP 140/96; PULSE 65; O2SAT 98
--- NOTE | 2023-10-11 21:15 | PC.NURSE ---
rounded on pt at this time pt reports no needs
[2023-10-11 21:30] VITALS: BP 147/91; PULSE 62; O2SAT 98
[2023-10-11 22:00] VITALS: BP 147/88; PULSE 60; O2SAT 97
[2023-10-11 22:27] VITALS: BP 147/88; PULSE 60; RESP 17; TEMP 36.8; O2SAT 98
== END 2023-10-11 22:28 | disposition home or self-care (01) ==
PROVIDERS: Emergency Provider Emergency Medicine; PCP Nurse Practitioner Family
DX: K62.5 Hemorrhage of anus and rectum (principal); I10 Essential (primary) hypertension; E78.5 Hyperlipidemia, unspecified; K21.9 Gastro-esophageal reflux disease without esophagitis; Z95.5 Presence of coronary angioplasty implant and graft
CPT/HCPCS: 74174; 80053; 85025; 85610; 85730; 99284; Q9967

== ENCOUNTER 2023-11-30 20:14 | Outpatient (CLI) | payer OTHER, SELFPAY ==
[2023-11-30 22:15] LABS: Microalbumin/Creatinine Ratio 9.2
[2023-11-30 22:27] LABS: Creatinine,Urine Random 136 mg/dL (Not Estab.)
== END 2023-11-30 23:59 | disposition home or self-care (01) ==
LOC: LAB.DROPOF 20:15
PROVIDERS: PCP Nurse Practitioner Family; Visit Provider Nurse Practitioner Family
DX: N23 Unspecified renal colic (principal)
CPT/HCPCS: 82043; 82570

== ENCOUNTER 2024-09-25 14:25 | Outpatient (CLI) | payer OTHER, SELFPAY ==
--- OUTSIDE RECORDS SUMMARY | 2024-07-31 08:55 | XMS_ITS | Encounter Summary ---
Author Organization Healthcare Address [address] [place] [address] Care Team Providers Care Hone Operator Name Role Phone Michelle Lane Primary Care Provider [phone] Unavailable [phone] Encounter Details Date Type Department Care Team (Latest Contact Info) Description 07/31/2024 8:55 AM EDT - 07/31/2024 11:59 PM EDT [facility] [address], [address] [place] [id number] Closed fracture of right tibia and fibula, initial encounter Discharge Disposition: Home or Self Care Social History Tobacco Use Types Packs/Day Years Used Date Smoking Tobacco: Never Passive Smoke Exposure: Never Smokeless Tobacco: Never Alcohol Use Standard Drinks/Week Comments Not Currently 0 (1 standard drink = 0.6 oz pur e alcohol) 2 drinkd a month PHQ-2 Answer Date Recorded Patient Health Questionnaire-2 Score 0 06/27/2024 PHQ-9 Answer Date Recorded Patient Health Questionnaire-9 Score 0 06/27/2024 CAGE ASSESSMENT Answer Date Recorded Cage unable to access Not on file 07/28/2023 Cage max number of drinks Not on file 2023 Cage Beverages a week Not on file 07/28/2023 Have you ever felt you should CUT down on your d rinking? 0 07/28/2023 Have you been ANNOYED by people criticizing your drinking? 0 07/28/2023 Have you felt GUILTY about your drinking? 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 0 07/28/2023 CAGE Questionnaire Score 0 024 PHQ-2A Answer Date Recorded Patient Health Questionnaire-2 Score 0 12/22/2022 Sex and Gender Information Value Date Recorded Sex Assigned at Male 07/28/2023 1:24 PM EDT Legal Sex Male 7:15 PM EDT Gender Identity Male 07/28/2023 1:24 PM EDT Sexual Orientation Not on file documented as of this encounter Medications at Time of Discharge amitriptyline (Elavil) 25 MG tablet Take 1 tablet (25 mg) by mouth every night. 12/04/2022 aspirin 81 MG EC tablet Take 1 tablet (81 mg) by mouth 1 (one) time each day. atorvastatin (Lipitor) 20 MG tablet Take 1 tablet (20 mg) by mouth 1 (one) time each day. Calcium Carbonate 500 MG chewable tablet Chew 1 Chewable tablet 2 (two) times a day. DULoxetine (Cymbalta) [address] capsule Take 1 capsule (60 mg) by mouth 1 (one) time each day. Do not crush or chew. famotidine (Pepcid) 20 MG tablet Take 1 tablet (20 mg) by mouth 1 (one) time each day. 06/25/2021 gabapentin (Neurontin) 800 MG tablet Take 1 tablet (800 mg) by mouth 3 (three) times a day. 12/06/2022 hydroCHLOROthiaz kamryn (HYDRODiuril) 12.5 MG tablet Take 1 tablet (12.5 mg) by mouth 1 (one) time each day. HYDROcodone-acet aminophen ([place]field) 7.5-325 MG tablet Take 1 tablet (7.5 mg of hydrocodone) by mouth every 12 (twelve) hours if needed. 01/03/2022 lidocaine (Lidoderm) 5 % patch Apply 1 patch topically 1 (one) time each day. Remove & discard patch within 12 hours or as directed by . losartan (Cozaar) 50 MG tablet Take 1 tablet (50 mg) by mouth 1 (one) time each day. 07/05/2021 melatonin tablet TAKE 2 TABLETS (6 MG TOTAL) BY MOUTH EVERY NIGHT. 60 tablet 5 01/18/2024 mupirocin (Bactroban) 2 % ointment Apply 1 Application topically 3 (three) times a day. naloxone (Narcan) 4 mg/0.1 mL nasal spray 1. Give 1 spray in nostril for no/slow breathing or cannot wake after opioid use 2. Call 911 3. Repeat in other nostril if symptoms continue 1 each 07/31/2023 NON FORMULARY Apply 1-2 g topically 4 (four) times a day if needed. Amantadine 10%/Gabapentin 10% /Piroxicam 0.5%/Ketamine 4%/Prilocaine 5% tamsulosin (Flomax) 0.4 MG 24 hr capsule Take 1 capsule (0.4 mg) by mouth 2 (two) times a day. 12/30/2020 Testosterone Cypionate 200 MG/ML solution 200 mg. 10/03/2023 tiZANidine (Zanaflex) 4 MG tablet Take 1 tablet (4 mg) by mouth every 8 (eight) hours if needed for muscle spasms. traZODone (Desyrel) 50 MG tablet Take 1.5 tablets (75 mg) by mouth at night if needed for sleep. 04/06/2022 documented as of this encounter Plan of Treatment Upcoming Encounters Date Type Department Care Team (Late st Contact Info) Description 09/27/2024 10:30 AM EDT Appointment [facility] [address] [place] [address] Clari English N 10/02/2024 3:15 PM EDT Appointment [facility] [address] [place] [address] Clari English N 10/09/2024 3:15 PM EDT Appointment [facility] [address] [place] [address] Clari English N 10/16/2024 3:15 PM EDT Appointment [facility] [address] [place] [address] Amador, Clari N 10/23/2024 3:15 PM EDT Appointment [facility] [address] [place] [address] Amador, Clari N 10/30/2024 3:15 PM EDT Appointment [facility] [address] [place] [address] Amador, Clari N 11/06/2024 3:15 PM EDT Appointment [facility] [address] [place] [address] Amador, Clari N 11/13/2024 3:15 PM EDT Appointment [facility] [address] [place] [address] Amador, Clari N 11/20/2024 3:15 PM EDT Appointment [facility] [address] [place] [address] Amador, Clari N 11/27/2024 3:15 PM EDT Appointment [facility] [address] [place] [address] Amador, Clari N 12/04/2024 3:15 PM EDT Appointment [facility] [address] [place] [address] Amador, Clari N 12/11/2024 3:15 PM EDT Appointment [facility] [address] [place] [address] Amador, Clari N 12/18/2024 3:15 PM EDT Appointment [facility] [address] [place] [address] Amador, Clari N 12/25/2024 3:15 PM EDT Appointment [facility] [address] [place] [address] Clari English 06/30/2025 11:50 AM EDT Office Visit [facility] [address] [place] [address] Teena Olivia DO [address] [place] [address] documented as of this encounter Procedures Procedure Name Priority Date/Time Associated Diagnosis Comments XR TIBIA FIBULA RIGHT 2+ VIEWS Routine 07/31/2024 9:10 AM EDT Closed fracture of right tibia and fibula, initial encounter documented in this encounter Results * XR Tibia Fibula Right 2+ Views (07/31/2024 9:10 AM EDT) Anatomical Region Laterality Modality Lower Extremities, Lower Leg Right Dig ital Radiography Impressions 07/31/2024 9:28 AM EDT Redemonstration of ORIF of healing distal tibial fracture in unchanged alignment with no evidence for loosening or failure. Redemonstration of healing distal fibular fracture in unchanged alignment. CRITICAL RESULT: No. COMMUNICATION: Per this written report. Drafted by Bandar Mcnulty on 07/31/2024 9:25 AM Final report signed by Bandar Mcnulty on 07/31/2024 9:28 AM Narrative 07/31/2024 9:28 AM EDT CLINICAL INDICATION: pain TECHNIQUE: XR TIBIA FIBULA RIGHT 2+ VIEWS COMPARISON: January 10, 2024 FINDINGS: Redemonstration of ORIF of the distal tibia with intramedullary nail and interlocking screws. Fractures in unchanged alignment with increased callus formation and blurring of fracture line. Distal fibula fractures in unchanged alignment with blurring of fracture line increased callus formation. No newly visualized fractures. Osseous structures in unchanged alignment. Mild residual soft tissue swelling. Procedure Note Bandar Mcnulty MD - 07/31/2024 CLINICAL INDICATION: pain TECHNIQUE: XR TIBIA FIBULA RIGHT 2+ VIEWS COMPARISON: January 10, 2024 FINDINGS: Redemonstration of ORIF of the distal tibia with intramedullary nail andinterlocking screws. Fractures in unchanged alignment with increasedcallus formation and blurring of fracture line. Distal fibula fractures inunchanged alignment with blurring of fracture line increased callusformation. No newly visualized fractures. Osseous structures in unchangedalignment. Mild residual soft tissue swelling. IMPRESSION: Redemonstration of ORIF of healing distal tibial fracture in unchangedalignment with no evidence for loosening or failure. Redemonstration of healing distal fibular fracture in unchangedalignment. CRITICAL RESULT: No. COMMUNICATION: Per this written report. Drafted by Bandar Mcnulty on 07/31/2024 9:25 AM Final report signed by Bandar Mcnulty on 07/31/2024 9:28 AM Brad Jay DO IMG XR PROCEDURES Final Res ult documented in this encounter Visit Diagnoses Diagnosis Closed fracture of right tibia and fibula, initial encounter documented in this encounter Additional Health Concerns Assessment Noted Time PHQ-9 Depression Total Score: 0 06/28/19 25 2:14 PM EDT A fall risk assessment has been complete d for the patient 07/31/2024 9:32 AM EDT A Body Mass Index follow-up plan has been documented for the patient 08/01/2024 12:57 PM EDT documented as of this encounter Care Teams Hone Operator Relationship Specialty Start Date End Date Michelle Lane PA [address] [place] [address] PCP - General 10/02/[address] PA [address] [place] [address] 10/02/20 documented as of this encounter
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
--- OUTSIDE RECORDS SUMMARY | 2024-09-18 14:17 | XMS_ITS | Encounter Summary ---
Author Organization Healthcare Address [address] [place] [place] [address] Care Team Providers Care Piece Maker Name Role Phone Michelle Lane Primary Care Provider [phone] Unavailable [phone] Reason for Visit * Consultation (Routine) - Authorized Specialty Diagnoses / Procedures Referred By Elvis lemus Referred To Contact Physical Therapy Diagnoses Paraplegia, complete (CMS/HCC) Neuropathic pain Injury of lumbar spinal cord, 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CMS/HCC) Incomplete paraplegia (CMS/HCC) Teena Olivia, [address] [facility] [address] [place] [address] Phone: tel: fax: [facility] [address] [place] [address] Phone: tel: fax: Referral ID Status Reason Start Date Expiration Date Visits Requested Visits Authorized [id number] Authorized Specialty Services Required 06/27/2024 12/27/2025 1 20 Encounter Details Date Type Department Care Team (Latest Contact Info) Description 09/18/2024 2:17 PM EDT - 09/18/2024 11:59 PM EDT Hospital Encounter [facility] [address] [place] [address] Clari English Incomplete paraplegia (CMS/HCC) [...] drink first t anastasia in the morning (EYE-AUDIO VISUAL SECRETARY) to steady your nerves or to get [...] 1 (one) time each day. HYDROcodone-acet aminophen ([place]) 7.5-325 MG tablet Take 1 tablet (7.5 [...] * Progress Notes - Flakita Chiang - 09/18/2024 3:15 PM EDT Physical Therapy PT Treatment Note DATE: 09/18/24 NAME: Alonzo Gallegos Date of : 1975 Therapist: Flakita Chiang Subjective Pt reports no falls since he was last in the clinic. General Time In: 1515 Time Out: 1600 Chart Reviewed: Yes Family/Caregiver Present: No Patient's Preferred Language for Communication is: [place] [facility] Program Director: Not Applicable General Health Program Director: Not Applicable Patient's Preferred Language for Communication is: Ch[place] Pain Pain Assessment Pain Assessment: 0-10 Pain Score: 0 Treatment Therapeutic Activity Therapeutic Activity Time Entry: 45 - Pt completed initial FGA assessment Functional Gait Assessment (</30= high fall risk) Date: 09/18/24 with R sided walking pole device - trialed bilateral thrive spiral AFO braces and bilateral walk on AFO braces with ambulation inside clinic - bilateral walk on AFO brace ambulation outdoor on uneven terrain Education Today's Treatment Equipment Used: None Needs Communication Device: No Patient Understanding of Basic Information: Understands, able to self manage Barriers to Learning: None Readiness to Learn: Accepting Education Needs Identified: HEP, Activity modification related to diagnosis, Equipment/Orthosis use Did Patient/Family Demonstrate Learning: Pt/Family verbalizes understanding Who Was Educated: Patient Patient's Preferred Language for Communication is: Chadian Assessment Pt able to complete functional gait assessment this session and demonstrated high fall risk. Pt reports that he has AFO braces at home and has not been using them because he thought they would make his ankles weaker . Therapist educated pt on the importance of bracing and how they put his muscles in a stronger position during ambulation. Pt preferred bilateral walk on AFOs for ambulation this session. Look to assess braces that pt already owns and see if pt needs to be put in contact with hydraulic pile hammer operator. Pt will continue to benefit from skilled PT to improve balance and functional mobility. Next session: assess ambulation with braces that pt already owns as well as floor transfers Goals Short Term Goals (4 weeks): Pt will participate in initial outcome measures including functional gait assessment. Pt will demonstrate a 0.13 m/s improvement on the 10mWT indicating a MDC in the assessment Pt will demonstrate a 45 m improvement on the 6MWT indicating a MDC in the assessment Minute Clerk For Basic Traffic Goals (12 weeks): Pt will ambulate at [...] to demonstrate an improvement in dynamic balance. Plan Plan Continue With Current Plan of Care: Continue With Current Plan of Care Written by Flakita Chiang on 09/18/24 at 5:23 PM Cosigned by Clari English at 09/18/2024 5:43 PM EDT Associated attestation - Clari English - 09/18/2024 5:43 PM EDT PT student provided with direct supervision during treatment session. All intervention selection was agreed upon by licensed PT to work towards skilled PT goals documented in this encounter Plan of Treatment Upcoming Encounters Date Type Department Care Team (Late st Contact Info) Description 09/27/2024 10:30 AM EDT Appointment [facility] [address] [place] [address] Clari English 10/02/2024 3:15 PM EDT Appointment [facility] [address] [place] [address] Clari English 10/09/2024 3:15 PM EDT Appointment [facility] [address] [place] [address] Amador, Clari N 10/16/2024 3:15 PM EDT Appointment [facility] [address] [place] [address] Amador, Clari N 10/23/2024 3:15 PM EDT Appointment [facility] [address] [place] [address] Amador, Clari N 10/30/2024 3:15 PM EDT Appointment [facility] [address] [place] [address] Amador, Clari N 11/06/2024 3:15 PM EDT Appointment [facility] [address] [place] [address] Amador, Clari N 11/13/2024 3:15 PM EDT Appointment [facility] [address] [place] [address] Amador, Clari N 11/20/2024 3:15 PM EDT Appointment [facility] [address] [place] [address] Amador, Clari N 11/27/2024 3:15 PM EDT Appointment [facility] [address] [place] [address] Amador, Clari N 12/04/2024 3:15 PM EDT Appointment [facility] [address] [place] [address] Amador, Clari N 12/11/2024 3:15 PM EDT Appointment [facility] [address] [place] [address] Amador, Clari N 12/18/2024 3:15 PM EDT Appointment [facility] [address] [place] [address] Clari English N 12/25/2024 3:15 PM EDT Appointment [facility] [address] [place] [address] Calri English N 06/30/2025 11:50 AM EDT Office [facility] [address] [place] [address] Teena Olivia DO [address] [place] [address] documented as of this encounter Visit Diagnoses [...] documented as of this encounter Care Teams Piece Maker Relationship Specialty Start Date End Date Michelle Lane PA [address] [place] [address] PCP - General 10/02/[address] PA [address] [place] [address] 10/02/20 documented as of this encounter
--- OUTSIDE RECORDS SUMMARY | 2024-09-25 14:28 | XMS_ITS | Encounter Summary ---
Author Organization Healthcare Address [address] [place] [address] Care Team Providers Care Hand Zipper Trimmer Name Role Phone Michelle Lane Primary Care Provider [phone] Unavailable [phone] Reason for Visit * Reason Comments Med Refill Encounter Details Date Type Department Care Team (Late st Contact Info) Description 01/22/2024 Refill [facility] [address] [place] [address] Teena Olivia DO [address] [facility] [address] [place] [address] Social History Tobacco Use Types Packs/Day Years Used Date Smoking Tobacco: Never Passive Smoke Exposure: Never Smokeless Tobacco: Never Alcohol Use Standard Drinks/Week Comments Not Currently 0 (1 standard drink = 0.6 oz pur e alcohol) 2 drinkd a month PHQ-2 Answer Date Recorded Patient Health Questionnaire-2 Score 0 06/19/2023 CAGE ASSESSMENT Answer Date Recorded Cage unable [...] drink first t anastasia in the morning (EYE-CAFETERIA AIDE) to steady your nerves or to get [...] on file documented as of this encounter Miscellaneous Notes * Telephone Encounter - Teena Oliiva DO - 01/22/2024 12:32 PM EDT Duplicate * Telephone Encounter - Cielo Baer - 01/22/2024 11:50 AM EDT Rx pended fu appt 06/20 documented in this encounter Plan of Treatment Upcoming Encounters Date Type Department Care Team (Late st Contact Info) Description 09/27/2024 10:30 AM EDT Appointment [facility] [address] [place] [address] Clari English N 10/02/2024 3:15 PM EDT Appointment [facility] [address] [place] [address] Clari English N 10/09/2024 3:15 PM EDT Appointment [facility] [address] [place] [address] Clari English N 10/16/2024 3:15 PM EDT Appointment [facility] [address] [facility] [place] [address] Amador, Clari N 10/23/2024 3:15 PM EDT Appointment [facility] [address] [place] [address] Amador, Clari N 10/30/2024 3:15 PM EDT Appointment [facility] [address] [place] [address] Amador, Clari N 11/06/2024 3:15 PM EDT Appointment [facility] [address] [place] [address] Amador, Clari N 11/13/2024 3:15 PM EDT Appointment [facility] [address] [place] [address] Amador, Clari N 11/20/2024 3:15 PM EDT Appointment [facility] [address] [place] [address] Amador, Clari N 11/27/2024 3:15 PM EDT Appointment [facility] [address] [place] [address] Amador, Clari N 12/04/2024 3:15 PM EDT Appointment [facility] [address] [place] [address] Amador, Clari N 12/11/2024 3:15 PM EDT Appointment [facility] [address] [place] [address] Amador, Clari N 12/18/2024 3:15 PM EDT Appointment [facility] [address] [place] [address] Amador, Clari N 12/25/2024 3:15 PM EDT Appointment [facility] [address] [place] [address] Clari English Radha 06/30/2025 11:50 AM EDT Office Visit [facility] [address] [place] [address] Teena Olivia DO [address] [place] [address] documented as of this encounter Visit Diagnoses Not on filedocumented in this encounter Additional Health Concerns Assessment Noted Time A fall risk assessment has been complete d for the patient 01/10/2024 10:23 AM EDT A Body Mass Index follow-up plan has been documented for the patient 01/11/2024 9:22 AM EDT documented as of this encounter Care Teams Hand Zipper Trimmer Relationship Specialty Start Date End Date Michelle Lane PA [address] [place] [address] PCP - General 10/02/[address] PA [address] [place] [address] 10/02/20 documented as of this encounter
--- OUTSIDE RECORDS SUMMARY | 2024-09-25 14:28 | XMS_ITS | Encounter Summary ---
Author Organization Healthcare Address [address] [place] [address] Care Team Providers Care Campus Manager Name Role Phone Michelle Lane Primary Care Provider Michelle Lane Unavailable [phone] Encounter Details Date Type Department Care Team (Late st Contact Info) Description 10/11/2021 Lab Requisition [facility] [address] [place] [address] Jesus Becerril MD [address] [address] Encounter for general adult medical examination without abnormal findings Social History Tobacco Use Types Packs/Day Years Used Date Smoking Tobacco: Never Sex and Gender Information Value Date Recorded Sex Assigned at Male 07/28/2023 1:24 PM EDT Legal Sex Male 7:15 PM EDT Gender Identity Male 07/28/2023 1:24 PM EDT Sexual Orientation Not on file COVID-19 Exposure Response Date Recorded In the last 10 days, have yo u been in contact with someone who was confirmed or suspected to have Coronavirus/COVID-19? No / Unsure 10/05/2021 1:06 PM EDT documented as of this encounter Plan of Treatment Upcoming Encounters Date Type Department Care Team (Late st Contact Info) Description 09/27/2024 10:30 AM EDT Appointment [facility] [address] [place] [address] Amador, Clari N 10/02/2024 3:15 PM EDT Appointment [facility] [address] [place] [address] Amador, Clari N 10/09/2024 3:15 PM EDT Appointment [facility] [address] [place] [address] Amador, Clari N 10/16/2024 3:15 PM EDT Appointment [facility] [address] [place] [address] Amador, Clari N 10/23/2024 3:15 PM EDT Appointment [facility] [address] [place] [address] Amador, Clari N 10/30/2024 3:15 PM EDT Appointment [facility] [address] [place] [address] Amador, Clari N 11/06/2024 3:15 PM EDT Appointment [facility] [address] [place] [address] Amador, Clari N 11/13/2024 3:15 PM EDT Appointment [facility] [address] [place] [address] Amador, Clari N 11/20/2024 3:15 PM EDT Appointment [facility] [address] [place] [address] Amador, Clari N 11/27/2024 3:15 PM EDT Appointment [facility] [address] [place] [address] Amador, Clari N 12/04/2024 3:15 PM EDT Appointment [facility] [address] [place] [address] Saundra Englishlyn N 12/11/2024 3:15 PM EDT Appointment [facility] [address] [place] [address] Saundra Englishlyn N 12/18/2024 3:15 PM EDT Appointment [facility] [address] [place] [address] Saundra Englishlyn N 12/25/2024 3:15 PM EDT Appointment [facility] [address] [place] [address] Saundra Englishlyn N 06/30/2025 11:50 AM EDT Office Visit [facility] [address] [place] [address] Teena Olivia DO [address] [facility] [address] [place] [address] documented as of this encounter Procedures Procedure Name Priority Date/Time Associated Diagnosis Comments MULTI DRUG RESISTANCE TEST Routine 10/11/2021 10:35 AM EDT Encounter for general adult medical examination without abnormal findings documented in this encounter Results * Multi Drug Resistance Test (10/11/2021 10:35 AM EDT) Culture No growth at day 1 10/12/2021 2:45 PM EDT HEALTHCARE LAB Swab (Nares and Justine Rectal) 10/11/2021 10:35 AM EDT 10/11/2021 11:04 AM EDT us Jesus Sher MD LAB MICROBIOLOGY - GENERAL ORDERABLES Final Result [facility] [address] [place] [address] documented in this encounter Visit Diagnoses Diagnosis Encounter for general adult medical examination without abnormal findings documented in this encounter Care Teams Campus Manager Relationship Specialty Start Date End Date Michelle Lane PA [address] [place] [address] PCP - General 10/02/[address] PA [address] [place] [address] 10/02/20 documented as of this encounter
--- OUTSIDE RECORDS SUMMARY | 2024-09-25 14:28 | XMS_ITS | Encounter Summary ---
Author Organization Healthcare Address [address] [place] [address] Care Team Providers Care Fusing Machine Feeder Name Role Phone Michelle Lane Primary Care Provider Michelle Lane Unavailable [phone] Encounter Details Date Type Department Care Team (Late st Contact Info) Description 11/25/2022 Orders Only External Location [address] [place] [address] SolomonYu, DO [address] [place] [address] Social History Tobacco Use Types Packs/Day Years Used Date Smoking Tobacco: Never Smokeless Tobacco: Never Alcohol Use Standard Drinks/Week Comments Not Currently 0 (1 standard drink = 0.6 oz pur e alcohol) 2 drinkd a month PHQ-2 Answer Date Recorded Patient Health Questionnaire-2 Score 2 04/14/2022 Sex and Gender Information Value Date Recorded Sex Assigned at Male 07/28/2023 1:24 PM EDT Legal Sex Male 7:15 PM EDT Gender Identity Male 07/28/2023 1:24 PM EDT Sexual Orientation Not on file documented as of this encounter Plan of Treatment Upcoming Encounters Date Type Department Care Team (Late st Contact Info) Description 09/27/2024 10:30 AM EDT Appointment [facility] [address] [place] [address] AmadorJenifferClari N 10/02/2024 3:15 PM EDT Appointment [facility] [address] [place] [address] Amador Clari N 10/09/2024 3:15 PM EDT Appointment [facility] [address] [place] [address] Amador, Clari N 10/16/2024 3:15 PM EDT Appointment [facility] [address] [place] [address] Amador, Clari N 10/23/2024 3:15 PM EDT Appointment [facility] [address] [place] [address] Amador, Clari N 10/30/2024 3:15 PM EDT Appointment [facility] [address] [place] [address] Amador, Clari N 11/06/2024 3:15 PM EDT Appointment [facility] [address] [place] [address] Amador, Clari N 11/13/2024 3:15 PM EDT Appointment [facility] [address] [place] [address] Amador, Clari N 11/20/2024 3:15 PM EDT Appointment [facility] [address] [place] [address] Amador, Clari N 11/27/2024 3:15 PM EDT Appointment [facility] [address] [place] [address] Amador, Clari N 12/04/2024 3:15 PM EDT Appointment [facility] [address] [place] [address] Clari English N 12/11/2024 3:15 PM EDT Appointment [facility] [address] [place] [address] Clari English N 12/18/2024 3:15 PM EDT Appointment [facility] [address] [place] [address] Clari English N 12/25/2024 3:15 PM EDT Appointment [facility] [address] [place] [address] Clari English N 06/30/2025 11:50 AM EDT Office Visit [facility] [address] [place] [address] Teena Olivia DO [address] [facility] [address] [place] [address] documented as of this encounter Procedures Procedure Name Priority Date/Time Associated Diagnosis Comments CT OUTSIDE IMAGES 11/25/2022 4:09 PM EDT documented in this encounter Results * CT OUTSIDE IMAGES (11/25/2022 4:09 PM EDT) Anatomical Region Laterality Modality Computed Tomogra phy 11/25/2022 4:09 PM EDT Yu Solomon DO IMG CT PROCEDURES Final Result documented in this encounter Visit Diagnoses Not on filedocumented in this encounter Additional Health Concerns Assessment Noted Time A fall risk assessment has been complete d for the patient 04/14/2022 2:38 PM EST documented as of this encounter Care Teams Fusing Machine Feeder Relationship Specialty Start Date End Date Michelle Lane PA [address] [place] [address] PCP - General 10/02/[address] PA [address] [place] [address] 10/02/20 documented as of this encounter
--- OUTSIDE RECORDS SUMMARY | 2024-09-25 14:28 | XMS_ITS | Encounter Summary ---
Author Organization Healthcare Address [address] [place] [address] Care Team Providers Care Demo Specialist Name Role Phone Michelle Lane Primary Care Provider [phone] Unavailable [phone] Encounter Details Date Type Department Care Team (Late st Contact Info) Description 06/28/2024 Orders Only External Location [address] [place] [address] Provider, External Social History Tobacco Use Types Packs/Day Years [...] drink first t anastasia in the morning (EYE-CONFERENCE ASSISTANT) to steady your nerves or to get [...] EDT Appointment [facility] [address] [place] [address] Jeniffer Englishitlyn N 10/02/2024 3:15 PM EDT [facility]oint[facility] [address] [place] [address] Amador, Clari N 10/09/2024 3:15 PM EDT Appointment [facility] [address] [place] [address] Amador, Clari N 10/16/2024 3:15 PM EDT Appointment [facility] [address] [place] [address] Amador, Clari N 10/23/2024 3:15 PM EDT Appointment [facility] [address] [place] [address] Amador, Clari N 10/30/2024 3:15 PM EDT Appointment [facility] [address] [place] [address] Amador, Clari N 11/06/2024 3:15 PM EDT Appointment [facility] [address] [place] [address] Amador, Clari N 11/13/2024 3:15 PM EDT Appointment [facility] [address] [facility] [address] Amador, Clari N 11/20/2024 3:15 PM EDT Appointment [facility] [address] [place] [address] Amador, Clari N 11/27/2024 3:15 PM EDT Appointment [facility] [address] [place] [address] Amador, Clari N 12/04/2024 3:15 PM EDT Appointment [facility] [address] [place] [address] Amador, Clari N 12/11/2024 3:15 PM EDT Appointment [facility] [address] [place] [address] Amador, Clari N 12/18/2024 3:15 PM EDT Appointment [facility] [address] [place] [address] Amador, Clari N 12/25/2024 3:15 PM EDT Appointment [facility] [address] [place] [address] Amador, Clari N 06/30/2025 11:50 AM EDT Office Visit [facility] [address] [address] Teena Olivia DO [address] [facility] [address] [place] [address] documented as of this encounter Procedures Procedure Name Priority Date/Time Associated Diagnosis Comments CT OUTSIDE IMAGES 06/28/2024 10:35 AM EDT documented in this encounter Results * CT OUTSIDE IMAGES (06/28/2024 10:35 AM EDT) Anatomical Region Laterality Modality Computed Tomogra phy 06/28/2024 10:3 5 AM EDT us External Provider IMG CT PROCEDURES Final Result documented in this encounter Visit Diagnoses Not on filedocumented in this encounter Additional Health Concerns Assessment Noted Time PHQ-9 Depression Total Score: 0 06/28/19 25 2:14 PM EDT A fall risk assessment has been complete d for the patient 06/27/2024 2:14 PM EDT A Body Mass Index follow-up plan has been documented for the patient 06/28/2024 2:54 PM EDT documented as of this encounter Care Teams Demo Specialist Relationship Specialty Start Date End Date Michelle Lane PA [address] [place] [address] PCP - General 10/02/[address] PA [address] [place] [address] 10/02/20 documented as of this encounter
--- OUTSIDE RECORDS SUMMARY | 2024-09-25 14:28 | XMS_ITS | Encounter Summary ---
Author Organization Healthcare Address [address] [place] [address] Care Team Providers Care Supervisor Intermediates Name Role Phone Michelle Lane Primary Care Provider [phone] Unavailable [phone] Reason for Visit * Reason Comments Med Refill Encounter Details Date Type Department Care Team (Late st Contact Info) Description 01/09/2022 Refill [facility] [address] [place] [address] Georgina Michael MD [address] [place] [id number] Injury of lumbar spinal cord, 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[facility]); Paraplegia, complete ([facility]) Social History Tobacco Use Types Packs/Day Years Used Date Smoking Tobacco: Never Smokeless Tobacco: Never Alcohol Use Standard Drinks/Week Comments Yes 0 (1 standard drink = 0.6 oz pur e alcohol) 2 drinkd a month PHQ-2 Answer Date Recorded Patient Health Questionnaire-2 Score 0 01/06/2022 Sex and Gender Information Value Date Recorded Sex Assigned at Male 07/28/2023 1:24 PM EDT Legal Sex Male 7:15 PM EDT Gender Identity Male 07/28/2023 1:24 PM EDT Sexual Orientation Not on file COVID-19 Exposure Response Date Recorded In the last 10 days, have yo u been in contact with someone who was confirmed or suspected to have Coronavirus/COVID-19? No / Unsure 01/06/2022 12:00 PM EDT documented as of this encounter Miscellaneous Notes * Telephone Encounter - Saqib Denisse Sindhu - 01/10/2022 7:23 AM EDT duplicate documented in this encounter Plan of Treatment Upcoming Encounters Date Type Department Care Team (Late st Contact Info) Description 09/27/2024 10:30 AM EDT Appointment [facility] [address] [place] [address] Amador, Clari N 10/02/2024 3:15 PM EDT Appointment [facility] [address] [place] [address] Amador, Clari N 10/09/2024 3:15 PM EDT Appointment [facility] [address] [place] [address] Amador, Clari N 10/16/2024 3:15 PM EDT Appointment [facility] [address] [place] [address] Amador, Clari N 10/23/2024 3:15 PM EDT Appointment [facility] [address] [place] [address] Amador, Clari N 10/30/2024 3:15 PM EDT Appointment [facility] [address] [place] [address] Amador, Clari N 11/06/2024 3:15 PM EDT Appointment [facility] [address] [place] [address] Amador, Clari N 11/13/2024 3:15 PM EDT Appointment [facility] [address] [place] [address] Saundra Englishlyn N 11/20/2024 3:15 PM EDT Appointment [facility] Therapy [address] [place] [address] Saundra Englishlyn N 11/27/2024 3:15 PM EDT Appointment [facility] [address] [place] [address] Jeniffer Englishitlyn N 12/04/2024 3:15 PM EDT Appointment [facility] [address] [place] [address] Saundra Englishlyn N 12/11/2024 3:15 PM EDT Appointment [facility] [address] [place] [address] Saundra Englishlyn N 12/18/2024 3:15 PM EDT Appointment [facility] [address] [place] [address] Saundra Englishlyn N 12/25/2024 3:15 PM EDT Appointment [facility] [address] [place] [address] Saundra Englishlyn N 06/30/2025 11:50 AM EDT Office Visit [facility] [address] [place] [address] Teena Olivia DO [address] [facility] [address] [place] [address] documented as of this encounter Visit Diagnoses Diagnosis Injury of lumbar spinal cord, 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CMS/HCC) Paraplegia, complete (CMS/HCC) documented in this encounter Additional Health Concerns Assessment Noted Time A fall risk assessment has been complete d for the patient 01/06/2022 12:50 PM EDT documented as of this encounter Care Teams Supervisor Intermediates Relationship Specialty Start Date End Date Michelle Lane PA [address] [place] [address] PCP - General 10/02/[address] PA [address] [place] [address] 10/02/20 documented as of this encounter
--- OUTSIDE RECORDS SUMMARY | 2024-09-25 14:28 | XMS_ITS | Encounter Summary ---
Author Organization Healthcare Address [address] [place] [address] Care Team Providers Care Automated Cutting Machine Operator Name Role Phone Michelle Lane Primary Care Provider Michelle Lane Unavailable [phone] Encounter Details Date Type Department Care Team (Late st Contact Info) Description 11/25/2022 Orders Only External Location [address] [place] [address] SolomonYu, DO [address] [place] [address] Social History Tobacco Use Types [...] Appointment [facility] [address] [place] [address] AmadorJenifferClari N 10/02/2024 3:15 PM EDT Appointment [facility] [address] [place] [address] Amador Clari N 10/09/2024 3:15 PM EDT Appointment [facility] [address] [place] [address] Amador, Clari N 10/16/2024 3:15 PM EDT Appointment [facility] [address] [place] [address] Amador, Clari N 10/23/2024 3:15 PM EDT Appointment [facility] [address] [place] [address] Amador, Clari N 10/30/2024 3:15 PM EDT Appointment [facility] [address] [place] [address] Amador, Clari N 11/06/2024 3:15 PM EDT Appointment [facility] [address] [place] [address] Amador, Clari N 11/13/2024 3:15 PM EDT Appointment [facility] [address] [place] [address] Amador, Clari N 11/20/2024 3:15 PM EDT Appointment [facility] [address] [place] [address] Amador, Clari N 11/27/2024 3:15 PM EDT Appointment [facility] [address] [place] [address] Amador, Clari N 12/04/2024 3:15 PM EDT Appointment [facility] [address] [place] [address] Clari English N 12/11/2024 3:15 PM EDT Appointment [facility] [address] [place] [address] Clari English N 12/18/2024 3:15 PM EDT Appointment [facility] [address] [place] [address] Clari English N 12/25/2024 3:15 PM EDT Appointment [facility] [address] [place] [address] Clari English N 06/30/2025 11:50 AM EDT Office [facility] [address] [place] [address] Teena Olivia DO [address] [facility] [address] [place] [address] documented as of this encounter Procedures Procedure [...] documented as of this encounter Care Teams Automated Cutting Machine Operator Relationship Specialty Start Date End Date Michelle Lane PA [address] [place] [address] PCP - General 10/02/[address] PA [address] [place] [address] 10/02/20 documented as of this encounter
--- OUTSIDE RECORDS SUMMARY | 2024-09-25 14:28 | XMS_ITS | Encounter Summary ---
Author Organization Healthcare Address [address] [place] [address] Care Team Providers Care Poly Area Supervisor Name Role Phone Michelle Lane Primary Care Provider [phone] Unavailable [phone] Encounter Details Date Type Department Care Team (Latest Contact Info) Description 09/18/2024 Travel Social History Tobacco Use Types Packs/Day Years [...] drink first t anastasia in the morning (EYE-STOCK DEALER) to steady your nerves or to get [...] EDT Appointment [facility] [address] [place] [address] Jeniffer Englishitlyn N 10/02/2024 3:15 PM EDT Appointment [facility] [address] [place] [address] Amador, Clari N 10/09/2024 3:15 PM EDT Appointment [facility] [address] [place] [address] Amador, Clari N 10/16/2024 3:15 PM EDT Appointment [facility] [address] [place] [address] Amador, Clari N 10/23/2024 3:15 PM EDT Appointment [facility] [address] [place] [address] Amador, Clari N 10/30/2024 3:15 PM EDT Appointment [facility] [address] [place] [address] Amador, Clari N 11/06/2024 3:15 PM EDT Appointment [facility] [address] [place] [address] Amador, Clari N 11/13/2024 3:15 PM EDT Appointment [facility] [address] [place] [address] Amador, Clari N 11/20/2024 3:15 PM EDT Appointment [facility] [address] [place] [address] Amador, Clari N 11/27/2024 3:15 PM EDT Appointment [facility] [address] [place] [address] Amador Clari N 12/04/2024 3:15 PM EDT Appointment [facility] [address] [place] [address] Amador, Clari N 12/11/2024 3:15 PM EDT Appointment [facility] [address] [place] [address] Amador, Clari N 12/18/2024 3:15 PM EDT Appointment [facility] [address] [place] [address] Amador, Clari N 12/25/2024 3:15 PM EDT Appointment [facility] [address] [place] [address] Jeniffer Englishitlyn N 06/30/2025 11:50 AM EDT Office Visit [facility] [address] [facility] [place] [address] Teena Olivia DO [address] [facility] [address] [place] [address] documented as of this encounter Visit Diagnoses [...] documented as of this encounter Care Teams Poly Area Supervisor Relationship Specialty Start Date End Date Michelle Lane PA [address] [place] [address] PCP - General 10/02/[address] PA [address] [facility] [place] [address] 10/02/20 documented as of this encounter
--- OUTSIDE RECORDS SUMMARY | 2024-09-25 14:28 | XMS_ITS | Encounter Summary ---
Author Organization Healthcare Address [address] [place] [address] Care Team Providers Care Nicker And Breaker Name Role Phone Michelle Lane Primary Care Provider [phone] Unavailable [phone] Encounter Details Date Type Department Care Team (Latest Contact Info) Description 07/31/2024 Travel Social History Tobacco Use Types Packs/Day [...] drink first t anastasia in the morning (EYE-NAVY SENIOR OFFICER) to steady your nerves or to get [...] EDT Appointment [facility] [address] [place] [address] Jeniffer Englishitlyn N 10/02/2024 3:15 PM EDT Appointment [facility] [address] [place] [address] Amador, Clari N 10/09/2024 3:15 PM EDT Appointment [facility] [address] [place] [address] Amador, Clari N 10/16/2024 3:15 PM EDT Appointment [facility] [address] [place] [address] Amador, Clari N 10/23/2024 3:15 PM EDT Appointment [facility] [address] [place] [address] Amador, Clari N 10/30/2024 3:15 PM EDT Appointment [facility] [address] [place] [address] Amador, Clari N 11/06/2024 3:15 PM EDT Appointment [facility] [address] [place] [address] Amador, Clari N 11/13/2024 3:15 PM EDT Appointment [facility] [address] [place] [address] Amador, Clari N 11/20/2024 3:15 PM EDT Appointment [facility] [address] [place] [address] Amador, Clari N 11/27/2024 3:15 PM EDT Appointment [facility] [address] [place] [address] Amador Clari N 12/04/2024 3:15 PM EDT Appointment [facility] [address] [place] [address] Amador, Calri N 12/11/2024 3:15 PM EDT Appointment [facility] [address] [place] [address] Amador, Clari N 12/18/2024 3:15 PM EDT Appointment [facility] [address] [place] [address] Amador, Clari N 12/25/2024 3:15 PM EDT Appointment [facility] [address] [place] [address] Jeniffer Englishitlyn N 06/30/2025 11:50 AM EDT Office Visit [facility] [address] [facility] [place] [address] Teena Olivia DO [address] [facility] [address] [place] [address] documented as of this encounter Visit Diagnoses [...] documented as of this encounter Care Teams Nicker And Breaker Relationship Specialty Start Date End Date Michelle Lane PA [address] [place] [address] PCP - General 10/02/[address] PA [address] [facility] [place] [address] 10/02/20 documented as of this encounter
--- OUTSIDE RECORDS SUMMARY | 2024-09-25 14:28 | XMS_ITS | Encounter Summary ---
Author Organization Healthcare Address [address] [place] [place] [address] Care Team Providers Care Student Specialist Name Role Phone Michelle Lane Primary Care Provider [phone] Unavailable [phone] Encounter Details Date Type Department Care Team (Late st Contact Info) Description 09/11/2024 Plan of Care Documentation [facility] [address] [place] [address] Social History Tobacco Use Types [...] drink first t anastasia in the morning (EYE-MANAGER MARKETING) to steady your nerves or to get [...] Info) Description 09/27/2024 10:30 AM EDT Appointment [facility] [address] [place] [address] Markos Englishn N 10/02/2024 3:15 PM EDT Appointment [facility] [address] [place] [address] AmadorJenifferClari N 10/09/2024 3:15 PM EDT Appointment [facility] [address] [place] [address] AmadorJenifferClari N 10/16/2024 3:15 PM EDT Appointment [facility] [address] [place] [address] AmadorJenifferClari N 10/23/2024 3:15 PM EDT Appointment [facility] [address] [place] [address] Amador Clari N 10/30/2024 3:15 PM EDT Appointment [facility] [address] [place] [address] Amador, Clari N 11/06/2024 3:15 PM EDT Appointment [facility] [address] [place] [address] Amador, Clari N 11/13/2024 3:15 PM EDT Appointment [facility] [address] [place] [address] Amador, Clari N 11/20/2024 3:15 PM EDT Appointment [facility] [address] [place] [address] Amador, Clari N 11/27/2024 3:15 PM EDT Appointment [facility] [address] [place] [address] Aamdor, Clari N 12/04/2024 3:15 PM EDT Appointment [facility] [address] [place] [address] Amador, Clari N 12/11/2024 3:15 PM EDT Appointment [facility] [address] [place] [address] Amador, Clari N 12/18/2024 3:15 PM EDT Appointment [facility] [address] [place] [address] Amador, Clari N 12/25/2024 3:15 PM EDT Appointment [facility] Therapy [address] [place] [address] Amador, Clari N 06/30/2025 11:50 AM EDT Office Visit [facility] [address] [place] [address] Teena Olivia DO [address] [facility] [address] [place] [address] documented as of this encounter [...] documented as of this encounter Care Teams Student Specialist Relationship Specialty Start Date End Date Michelle Lane PA [address] [place] [address] PCP - General 10/02/[address] PA [address] [place] [address] 10/02/20 documented as of this encounter
--- OUTSIDE RECORDS SUMMARY | 2024-09-25 14:28 | XMS_ITS | Encounter Summary ---
Author Organization Healthcare Address [address] [place] [address] Care Team Providers Care Correction Officer Reformatory Name Role Phone Michelle Lane Primary Care Provider [phone] Unavailable [phone] Encounter Details Date Type Department Care Team (Latest Contact Info) Description 09/11/2024 Travel Social History Tobacco Use Types Packs/Day [...] drink first t anastasia in the morning (EYE-FISHING LURE ASSEMBLER) to steady your nerves or to get [...] EDT Appointment [facility] [address] [place] [address] Jeniffer Englishitlyn N 10/02/2024 3:15 PM EDT [facility]ointment [facility] [address] [place] [address] Amador, Clari N 10/09/2024 3:15 PM EDT [facility]ointment [facility] [address] [place] [address] Amador, Clari N 10/16/2024 3:15 PM EDT [facility]ointment [facility] [address] [place] [address] Amador, Clari N 10/23/2024 3:15 PM EDT [facility]ointment [facility] [address] [place] [address] Amador, Clari N 10/30/2024 3:15 PM EDT Appointment [facility] [address] [place] [address] Amador, Clari N 11/06/2024 3:15 PM EDT Appointment [facility] [address] [place] [address] Amador, Clari N 11/13/2024 3:15 PM EDT Appointment [facility] [address] [place] [address] Amador, Calri N 11/20/2024 3:15 PM EDT Appointment [facility] Outpatient [facility] [address] [place] [address] Amador, Clari N 11/27/2024 3:15 PM EDT Appointment [facility] [address] [place] [address] Amador Clari N 12/04/2024 3:15 PM EDT Appointment [facility] Out[facility] [address] [place] [address] Amador, Clari N 12/11/2024 3:15 PM EDT Appointment [facility] Outpatient [facility] [address] [place] [address] Amador, Clari N 12/18/2024 3:15 PM EDT Appointment [facility] Outpatient [facility] [address] [place] [address] Amador, Clari N 12/25/2024 3:15 PM EDT Appointment [facility] Outpatient Therapy [address] [place] [address] Jeniffer Englishitlyn N 06/30/2025 11:50 AM EDT Office Visit [facility] [address] [facility] [place] [address] Teena Olivia DO [address] [facility] [address] [place] [address] documented as of this encounter Visit Diagnoses [...] documented as of this encounter Care Teams Correction Officer Reformatory Relationship Specialty Start Date End Date Michelle Lane PA [address] [place] [address] PCP - General 10/02/[address] PA [address] [place] [address] 10/02/20 documented as of this encounter
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
--- NOTE | 2024-09-25 14:30 | CA_ITS ---
APPROVED REPORT EXAM: Comprehensive 2D, Doppler, and color-flow Echocardiogram Dwarf Tree Grower: Elaine Richards RVT Ht: 5 ft 11 in Wt: 240lbs BSA: 2.28 BP: 130/88 mmHg Indications: HYPERTENSION, BIOPROSTHETIC AORTIC VALVE REPLACEMENT 2D Dimensions LA Volume 24.30 mL LA Volume Index 10.66 mL/m2 (M/F) 16-34 M-Mode Dimensions RVDd 3.37 cm (0.9-2.6) LA Diam 3.58 cm (1.9-4.0) LVDd 5.06 cm (3.5-5.7) LVDs 3.25 cm (3.5-5.7) IVSd 0.96 cm (0.6-1.1) PWd 0.60 cm (0.6-1.1) EF (Teich) 65.00% FS 35.80% EDV (Teich) 121.60 mL TAPSE 1.60 (<1.7) ESV (Teich) 42.50 mL LV Diastology E Decel Time 277 (160-240 msec) E/A Ratio 1.0 Aortic Valve ROMULO Index 1.35 cm2/m2 AoV Peak Timothy. 138.0 (50-130 cm/s) AO Peak GR. 7.60 mmHg AO Mean GR. 4.40 (<5 mmHg) AO VTI 25.6 (18-25 cm) ROMULO (VTI) 3.14 (2.5-4.5 cm2) Mitral Valve MV E Max Timothy. 82.0 (40-130 cm/s) MV A Velocity 79.0 (40-130 cm/s) E/A Ratio 1.05 MV PHT 81.0 ms Pulmonary Valve PV Peak Velocity 86.0 (50-150 cm/s) Left Ventricle The left ventricle is normal size. The left ventricular systolic function is normal. The left ventricular ejection fraction is within the normal range. Proximal septal thickening is present. There is normal LV segmental wall motion. The left ventricular diastolic function is normal. LVEF is 55%. Right Ventricle The right ventricle is normal size. The right ventricular systolic function is normal. Atria The left atrium is mildly dilated. The right atrium size is normal. There is no Doppler evidence of interatrial shunt. Aortic Valve s/p bioprosthetic aortic valve replacement. The prosthesis is well-seated. Peak velocity 1.5 m/s. Mean AV gradient 8 mmHg. Max AV gradient 40 mmHg. No aortic regurgitation is present. Mitral Valve The mitral valve is normal in structure. No evidence of mitral valve stenosis. Mild mitral regurgitation. Tricuspid Valve Tricuspid valve is grossly normal in structure and function. Trace tricuspid regurgitation. There is insufficient TR jet to estimate RVSP. Pulmonic Valve The pulmonary valve is normal in structure. Trace pulmonic regurgitation. Great Vessels The aortic root is normal in size. IVC is normal in size and collapses >50% with inspiration. Pericardium There is no pericardial effusion. Other Information Study Quality: Fair Conclusion Normal biventricular systolic function. Mild LA dilation. Mild MR. s/p bioprosthetic AVR. Acceptable transaortic gradients. No AI. Electronically signed by : Fabby Julien MD 10/01/2024 00:41:32
== END 2024-09-25 23:59 | disposition home or self-care (01) ==
LOC: RT 14:26
PROVIDERS: PCP Nurse Practitioner Family; Visit Provider Physician Assistant
DX: I34.0 Nonrheumatic mitral (valve) insufficiency (principal); I11.9 Hypertensive heart disease without heart failure; Z95.3 Presence of xenogenic heart valve; Z98.890 Other specified postprocedural states
CPT/HCPCS: 93306

== ENCOUNTER 2024-10-14 12:23 | Emergency (ER) | payer OTHER, SELFPAY ==
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
--- OUTSIDE RECORDS SUMMARY | 2024-09-18 14:17 | XMS_ITS | Encounter Summary ---
Author Organization Healthcare Address [address] [place] [address] Care Team Providers Care City Driver Name Role Phone Michelle Lane Primary Care Provider [phone] Unavailable [phone] Reason for Visit * Consultation (Routine) - Authorized Specialty Diagnoses / Procedures Referred By Elvis lemus Referred To Contact Physical Therapy Diagnoses Paraplegia, complete (CMS/HCC) Neuropathic pain Injury of lumbar spinal cord, 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CMS/HCC) Incomplete paraplegia (CMS/HCC) Teena Olivia, [address] [facility] [address] [place] [address] Phone: tel: fax: [facility] [address] [place] [address] Phone: tel: fax: Referral ID Status Reason Start Date Expiration Date Visits Requested Visits Authorized [id number] Authorized Specialty Services Required 06/27/2024 12/27/2025 1 20 Encounter Details Date Type Department Care Team (Latest Contact Info) Description 09/18/2024 2:17 PM EDT - 09/18/2024 11:59 PM EDT Hospital Encounter [facility] [address] [place] [address] Clari English Incomplete paraplegia (CMS/HCC) [...] drink first t anastasia in the morning (EYE-NUCLEAR WEAPONS MECHANICAL SPECIALIST) to steady your nerves or to get [...] 1 (one) time each day. HYDROcodone-acet aminophen ([place]) 7.5-325 MG tablet Take 1 tablet (7.5 [...] No Patient's Preferred Language for Communication is: Somali Occupational Therapy Co Director: Not Applicable General Occupational Therapy Co Director: Not Applicable Patient's Preferred Language for Communication is: Somali Pain Pain Assessment Pain Assessment: 0-10 Pain [...] Patient Patient's Preferred Language for Communication is: Somali Assessment Pt able to complete functional gait [...] needs to be put in contact with rn eligibility. Pt will continue to benefit from skilled [...] 6MWT indicating a MDC in the assessment Plasma Specialist Goals (12 weeks): Pt will ambulate at [...] Info) Description 10/16/2024 8:15 AM EDT Appointment [facility] [address] [place] [address] Clari English 10/23/2024 8:15 AM EDT Appointment [facility] [address] [place] [address] Clair English 10/30/2024 8:15 AM EDT Appointment [facility] [address] [place] [address] Amador Clari N 11/06/2024 8:15 AM EDT Appointment [facility] [address] [place] [address] Amador Clari N 11/13/2024 8:15 AM EDT Appointment [facility] [address] [place] [address] Amador Clari N 11/20/2024 8:15 AM EDT Appointment [facility] [address] [place] [address] Jeniffer Englishitlyn N 11/27/2024 8:15 AM EDT Appointment [facility] [address] [place] [address] Amador Clari N 12/11/2024 8:15 AM EDT Appointment [facility] [address] [place] [address] Amador Clari N 12/18/2024 8:15 AM EDT Appointment [facility] [address] [place] [address] Amador Clari N 12/25/2024 8:15 AM EDT Appointment [facility] [address] [place] [address] Amador Clari N 06/30/2025 11:50 AM EDT [facility] Visit [facility] [address] [facility] [place] [address] Teena Olivia DO [address] [facility] [address] [place] [address] documented as of this encounter Visit Diagnoses [...] documented as of this encounter Care Teams City Driver Relationship Specialty Start Date End Date Michelle Lane PA [address] [place] [address] PCP - General 10/02/[address] PA [address] [place] [address] 10/02/20 documented as of this encounter
--- OUTSIDE RECORDS SUMMARY | 2024-10-02 07:54 | XMS_ITS | Encounter Summary ---
Author Organization Healthcare Address [address] [place] [address] Care Team Providers Care Professor Of Journalism Name Role Phone Michelle Lane Primary Care Provider [phone] Unavailable Reason for Visit * Consultation (Routine) - Authorized Specialty Diagnoses / Procedures Referred By Elvis lemus Referred To Contact Physical Therapy Diagnoses Paraplegia, complete (CMS/HCC) Neuropathic pain Injury of lumbar spinal cord, 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CMS/HCC) Incomplete paraplegia (CMS/HCC) Teena Olivia, [address] [facility] [address] [place] [address] Phone: tel: fax: [facility] [address] [place] [address] Phone: tel: fax: Referral ID Status Reason Start Date Expiration Date Visits Requested Visits Authorized [id number] Authorized Specialty Services Required 06/27/2024 12/27/2025 1 20 Encounter Details Date Type Department Care Team (Latest Contact Info) Description 10/02/2024 7:54 AM EDT - 10/02/2024 11:59 PM EDT Hospital Encounter [facility] [address] [place] [address] Clari English Incomplete paraplegia (CMS/HCC) [...] drink first t anastasia in the morning (EYE-GLASS FITTER) to steady your nerves or to get [...] 1 (one) time each day. HYDROcodone-acet aminophen ([place]) 7.5-325 MG tablet Take 1 tablet (7.5 [...] * Progress Notes - Flakita Chiang - 10/02/2024 8:15 AM EDT Physical Therapy PT Treatment Note DATE: 10/02/24 NAME: Alonzo Gallegos Date of : 1975 Therapist: Flakita Chiang Subjective Pt reports he is feeling stiff and sore today. General Time In: 0815 Time Out: 0900 Chart Reviewed: Yes Family/Caregiver Present: No Patient's Preferred Language for Communication is: German Cognos: Not Applicable General Cognos: Not Applicable Patient's Preferred Language for Communication is: German Pain Pain Assessment Pain Assessment: 0-10 Pain Score: 7 Pain Type: Ache Pain Location: Ankle Pain Orientation: Right Treatment Therapeutic Activity Therapeutic Activity Time Entry: 45 -Therapist issues initial stretching HEP, went through each stretch with patient and ensured correct form: Access Code: [email or web address] URL: [email or web address] Date: 10/02/2024 Prepared by: Clari English Exercises - Modified Raimundo Stretch - 1 x daily - 7 x weekly - 3 sets - 10 reps - Seated Piriformis Stretch with Trunk Bend - 1 x daily - 7 x weekly - 3 sets - 10 reps - Seated Hamstring Stretch - 1 x daily - 7 x weekly - 3 sets - 10 reps - Standing Gastroc Stretch at Counter - 1 x daily - 7 x weekly - 3 sets - 10 reps -Therapist trying initial NMES using [place] unit with trigger to use during swing phase on R anterior tibialis muscle. Education Today's Treatment Patient's Preferred Language for Communication is: German Assessment NMES performed this session. Stimulation to R tibialis anterior. Pt encouraged to provide active assistance throughout the session as able to maximize benefits. Pt educated on expectations for session and potential risks/benefits. Pt with good tolerance of NMES this session. Pt demonstrating no adverse events. Skin check performed after session and blanching erythema at all placements of electrode sites. No injuries/wounds to skin noted. Pt educated to monitor skin and to notify therapist if any scabs/park present in the areas where electrodes were located. Pt demonstrated increased R foot clearance and control while utilizing NMES. Pt reports it helped with his pain. Look to assess the use of BioNess on bilateral tibialis anterior muscles to see if this continues to improve gait mechanics. Pt will continue to benefit from skilled PT to improve balance and functional mobility. Next session: try BioNess bilaterally with ambulation Goals Short Term Goals (4 weeks): Pt will participate in initial outcome measures including functional gait assessment. Pt will demonstrate a 0.13 m/s improvement on the 10mWT indicating a MDC in the assessment Pt will demonstrate a 45 m improvement on the 6MWT indicating a MDC in the assessment Metal Caster Goals (12 weeks): Pt will ambulate at [...] of Care Written by Flakita Chiang on 10/02/24 at 10:15 AM Cosigned by Clari English at 10/02/2024 10:20 AM EDT Associated attestation - Clari English - 10/02/2024 10:20 AM EDT PT student provided with direct supervision during treatment session. All intervention selection was agreed upon by licensed PT to work towards skilled PT goals documented in this encounter Plan of Treatment Upcoming Encounters Date Type Department Care Team (Late st Contact Info) Description 10/16/2024 8:15 AM EDT Appointment [facility] [address] [place] [id number] Amador, Clari N 10/23/2024 8:15 AM EDT Appointment [facility] [address] [place] [address] Amador, Clari N 10/30/2024 8:15 AM EDT Appointment [facility] [address] [place] [address] Amador, Clari N 11/06/2024 8:15 AM EDT Appointment [facility] [address] [place] [address] Amador, Clari N 11/13/2024 8:15 AM EDT Appointment [facility] [address] [place] [address] Amador, Clari N 11/20/2024 8:15 AM EDT Appointment [facility] [address] [place] [address] Amador, Clari N 11/27/2024 8:15 AM EDT Appointment [facility] [address] [place] [address] Amador, Clari N 12/11/2024 8:15 AM EDT Appointment [facility] [address] [place] [address] Amador, Clari N 12/18/2024 8:15 AM EDT Appointment [facility] [address] [place] [address] Amador, Clari N 12/25/2024 8:15 AM EDT Appointment [facility] [address] [place] [address] Amador, Clari N 06/30/2025 11:50 AM EDT Office Visit [facility] [address] [facility] [place] [address] Teena Olivia DO [address] [facility] [address] [place] [address] documented as of this encounter Visit Diagnoses [...] documented as of this encounter Care Teams Professor Of Journalism Relationship Specialty Start Date End Date Michelle Lane PA [address] [place] [address] PCP - General 10/02/[address] PA [address] [place] [address] 10/02/20 documented as of this encounter
--- OUTSIDE RECORDS SUMMARY | 2024-10-09 07:40 | XMS_ITS | Encounter Summary ---
Author Organization Healthcare Address [address] [place] [address] Care Team Providers Care Digital Strategy Manager Name Role Phone Michelle Lane Primary Care Provider [phone] Unavailable [phone] Reason for Visit * Consultation (Routine) - Authorized Specialty Diagnoses / Procedures Referred By Elvis lemus Referred To Contact Physical Therapy Diagnoses Paraplegia, complete (CMS/HCC) Neuropathic pain Injury of lumbar spinal cord, 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CMS/HCC) Incomplete paraplegia (CMS/HCC) Teena Olivia, [address] [facility] [address] [place] [address] Phone: tel: fax: [facility] [address] [place] [address] Phone: tel: fax: Referral ID Status Reason Start Date Expiration Date Visits Requested Visits Authorized [id number] Authorized Specialty Services Required 06/27/2024 12/27/2025 1 20 Encounter Details Date Type Department Care Team (Latest Contact Info) Description 10/09/2024 7:40 AM EDT - 10/09/2024 11:59 PM EDT Hospital Encounter [facility] [address] [place] [address] Clari English Incomplete paraplegia (CMS/HCC) [...] drink first t anastasia in the morning (EYE-DRIVER WHEELCHAIR) to steady your nerves or to get [...] 1 (one) time each day. HYDROcodone-acet aminophen ([place]) 7.5-325 MG tablet Take 1 tablet (7.5 [...] as of this encounter Miscellaneous Notes * Addendum Note - Clari English - 10/09/2024 8:15 AM EDTEncounter addended by: Clari English on: 10/11/2024 11:34 AM Actions taken: Pend attestation to clinical note * Progress Notes - Flakita Chiang - 10/09/2024 8:15 AM EDT Physical Therapy PT Treatment Note DATE: 10/09/24 NAME: Alonzo Gallegos Date of : 1975 Therapist: Flakita Chiang Subjective Pt reports he has been feeling like his feet are floating more recently, but says this is not necessarily a bad thing because his pain is not as bad. General Time In: 0815 Time Out: 0900 Chart Reviewed: Yes Family/Caregiver Present: No Patient's Preferred Language for Communication is: Polish Seamer Operator: Not Applicable General Seamer Operator: Not Applicable Patient's Preferred Language for Communication is: Polish Pain Pain Assessment Pain Assessment: 0-10 Pain Score: 5 Pain Type: Ache Pain Location: Ankle Pain Orientation: Right Treatment Therapeutic Activity Therapeutic Activity Time Entry: 45 - bioness education and set up (bilateral TAs stimulated), adjustments made to improve stim tolerance - ambulation with bioness system 80 ft, seated rest break and right side damian skin check, 80 ft with R trekking pole, seated rest break, 200 ft ambulation with R trekking pole Education Today's Treatment Patient's Preferred Language for Communication is: Polish Assessment Pt participates in initial bioness set up with use of 45 Hz and 90-100 mA set to achieve proper motor activation with good success. With overground ambulation using bioness pt demonstrates decreased bilateral foot slap and improved bilateral foot clearance. Pt educated on benefit of bioness system and demonstrates interest on continuing to use the system to see if it can continue to help with hispain and gait mechanics. Patient will continue to benefit from skilled to improve balance and functional mobility. Next session: zeroG TM ambulation with bioness Goals Short Term Goals (4 weeks): Pt will participate in initial outcome measures including functional gait assessment. Pt will demonstrate a 0.13 m/s improvement on the 10mWT indicating a MDC in the assessment Pt will demonstrate a 45 m improvement on the 6MWT indicating a MDC in the assessment Mcc Goals (12 weeks): Pt will ambulate at [...] of Care Written by Flakita Chiang on 10/09/24 at 11:08 AM Cosigned by Clari English at 10/11/2024 11:40 AM EDT Associated attestation - Clari English - 10/11/2024 11:40 AM EDT PT student provided with direct supervision during treatment session. All intervention selection was agreed upon by licensed PT to work towards skilled PT goals documented in this encounter Plan of Treatment Upcoming Encounters Date Type Department Care Team (Late st Contact Info) Description 10/16/2024 8:15 AM EDT Appointment [facility] [address] [place] [address] Clari English 10/23/2024 8:15 AM EDT Appointment [facility] [address] [place] [address] Markos Englishn N 10/30/2024 8:15 AM EDT Appointment [facility] [address] [place] [address] Jeniffer Englishitlyn N 11/06/2024 8:15 AM EDT Appointment [facility] [address] [place] [address] Jeniffer Englishitlyn N 11/13/2024 8:15 AM EDT Appointment [facility] [address] [place] [address] Amador Clari N 11/20/2024 8:15 AM EDT Appointment [facility] [address] [place] [address] Jeniffer Englishitlyn N 11/27/2024 8:15 AM EDT Appointment [facility] [address] [place] [address] Jeniffer Englishitlyn N 12/11/2024 8:15 AM EDT Appointment [facility] [address] [place] [address] Jeniffer Englishitlyn N 12/18/2024 8:15 AM EDT Appointment [facility] [address] [place] [address] Jeniffer Englishitlyn N 12/25/2024 8:15 AM EDT Appointment [facility] [address] [place] [address] Amador Clari N 06/30/2025 11:50 AM EDT Office Visit [facility] [address] [facility] [place] [address] Teena Olivia DO [address] [place] [address] documented as of this encounter Visit Diagnoses [...] documented as of this encounter Care Teams Digital Strategy Manager Relationship Specialty Start Date End Date Michelle Lane PA [address] [place] [address] PCP - General 10/02/[address] PA [address] [place] [address] 10/02/20 documented as of this encounter
[2024-10-14 12:32] VITALS: BP 130/72; PULSE 82; RESP 19; TEMP 36.9; O2SAT 98; BMI 32.1
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
--- OUTSIDE RECORDS SUMMARY | 2024-10-14 12:37 | XMS_ITS | Encounter Summary ---
Author Organization [facility] Address [address] [place] [address] Care Team Providers Care Surgeon Assistant Name Role Phone Michelle Lane Primary Care Provider [phone] Unavailable [phone] Reason for Visit * Reason Comments Med Refill Encounter Details Date Type Department Care Team (Late st Contact Info) Description 01/09/2022 Refill [facility] [address] [place] [address] Georgina Michael MD [address] [facility] [address] [place] [address] Injury of lumbar spinal cord, 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[facility]); Paraplegia, complete ([facility]) Social History Tobacco Use Types [...] Recorded In the last 10 days, have huy u been in contact with someone who was confirmed or suspected to have Coronavirus/COVID-19? No / Unsure 01/06/2022 12:00 PM EDT documented as of this encounter Miscellaneous Notes * Telephone Encounter - Denisse Cerrato - 01/10/2022 7:23 AM EDT duplicate documented in this encounter Plan of Treatment Upcoming Encounters Date Type Department Care Team (Late st Contact Info) Description 10/16/2024 8:15 AM EDT Appointment [facility] [address] [place] [address] Amador, Clari N 10/23/2024 8:15 AM EDT Appointment [facility] [address] [place] [address] Amador, Clari N 10/30/2024 8:15 AM EDT Appointment [facility] [address] [place] [address] Amador, Clari N 11/06/2024 8:15 AM EDT Appointment [facility] [address] [place] [address] Amador, Clari N 11/13/2024 8:15 AM EDT Appointment [facility] [address] [place] [address] Amador, Clari N 11/20/2024 8:15 AM EDT Appointment [facility] [address] [place] [address] Amador, Clari N 11/27/2024 8:15 AM EDT Appointment [facility] [address] [place] [address] Clari English N 12/11/2024 8:15 AM EDT Appointment [facility] [address] [place] [address] Clari English N 12/18/2024 8:15 AM EDT Appointment [facility] [address] [place] [address] Clari English N 12/25/2024 8:15 AM EDT Appointment [facility] [address] [place] [address] Clari English N 06/30/2025 11:50 AM EDT Office Visit [facility] [address] [place] [id number] Teena Olivia DO [address] [place] [address] documented as of this encounter Visit Diagnoses Diagnosis Injury of lumbar spinal cord, 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CMS/HCC) Paraplegia, complete (CMS/HCC) documented in this encounter Additional Health Concerns Assessment Noted Time A fall risk assessment has been complete d for the patient 01/06/2022 12:50 PM EDT documented as of this encounter Care Teams Surgeon Assistant Relationship Specialty Start Date End Date Michelle Lane PA [address] [place] [address] PCP - General 10/02/[address] PA [address] [place] [address] 10/02/20 documented as of this encounter
--- OUTSIDE RECORDS SUMMARY | 2024-10-14 12:37 | XMS_ITS | Clinical Summary ---
Author Organization Healthcare Address [address] [place] [address] Care Team Providers Care Research And Evaluation Analyst Name Role Phone Michelle Lane Primary Care Provider [phone] Unavailable [phone] Allergies No known active allergies Medications [...] (one) time each day. Active HYDROcodone-veda taminophen (Rainier) 7.5-325 MG tablet Take 1 tablet (7.5 [...] weakness 10/02/2021 Overview (10/21/2021): Neurosurgery consulted Weakness 2/ spine injury , PM&R consulted OR for L1-4 MIS Fusion on 10/05/21 Multipodus boot for his ankles to prevent contracture; rotated between LE every two hours Acute pain 10/02/2021 07/30/2023 Overview (10/21/2021): Pain team consulted IV SOLAR TECHNICIAN , 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 10/07 - PO regimen 10/17: Robaxin stopped and home zanaflex started Aortic valve replaced 10/02/20212023 Overview (10/21/2021): Restarted home aspirin 10/03 Hyperglycemia 10/02/2021 07/30/2023 Overview (10/21/2021): - likely due to trauma - Continue to monitor, has been stable Encounters Date Type Department Care Team Description 10/09/2024 7:40 AM EDT - 10/09/2024 11:59 PM EDT Hospital Encounter [facility] [address] [place] [address] Clari English Incomplete paraplegia (CMS/HCC) (Primary Dx); Neuropathic pain Discharge Disposition: Still a Patient 10/09/2024 Travel 10/02/2024 7:54 AM EDT - 10/02/2024 11:59 PM EDT Hospital Encounter [facility] [address] [place] [address] Clari English N Incomplete paraplegia (CMS/HCC) (Primary Dx); Neuropathic pain Discharge Disposition: Still a Patient 10/02/2024 Travel 09/18/2024 2:17 PM EDT - 09/18/2024 11:59 PM EDT Hospital Encounter [facility] [address] [place] [address] Clari English N Incomplete paraplegia (CMS/HCC) (Primary Dx); Neuropathic pain Discharge Disposition: Still a Patient 09/18/2024 Travel 09/11/2024 2:55 PM EDT - 09/11/2024 11:59 PM EDT Hospital Encounter [facility] [address] [place] [address] Clari English Incomplete paraplegia (CMS/HCC) (Primary Dx); Neuropathic pain Discharge Disposition: Still a Patient 09/11/2024 Plan of Care Documentation [facility] [address] [place] [address] 09/11/2024 Travel 07/31/2024 10:00 AM EDT Office Visit [facility] [address] [place] [address] Taz Muñiz MD Closed fracture of right tibia and fibula, 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Primary Dx) 07/31/2024 8:55 AM EDT - 07/31/2024 11:59 PM EDT Hospital Encounter [facility] Radiology [address] [place] [address] Closed fracture of right tibia and fibula, initial encounter Discharge Disposition: Home or Self Care 07/31/2024 Travel from Last 3 Months Immunizations Immunization [...] drink first t anastasia in the morning (EYE-CENTRAL OFFICE OPERATOR) to steady your nerves or to get [...] Description 10/16/2024 8:15 AM EDT Appointment [facility] [address] [place] [address] Clari English N 10/23/2024 8:15 AM EDT Appointment [facility] [address] [place] [address] Clari English N 10/30/2024 8:15 AM EDT Appointment [facility] [address] [place] [address] Saundra Englishlyn N 11/06/2024 8:15 AM EDT Appointment [facility] [address] [place] [address] Saundra Englishlyn N 11/13/2024 8:15 AM EDT Appointment [facility] [address] [place] [address] Jeniffer Englishitlyn N 11/20/2024 8:15 AM EDT Appointment [facility] [address] [place] [address] Jeniffer Englishitlyn N 11/27/2024 8:15 AM EDT Appointment [facility] [address] [place] [address] Saundra Englishlyn N 12/11/2024 8:15 AM EDT Appointment [facility] [address] [place] [address] Saundra Englishlyn N 12/18/2024 8:15 AM EDT Appointment [facility] [address] [place] [address] Saundra Englishlyn N 12/25/2024 8:15 AM EDT Appointment [facility] [address] [place] [address] Jeniffer Englishitlyn N 06/30/2025 11:50 AM EDT Office Visit [facility] [address] [place] [address] Teena Olivia DO [address] [facility] [address] [place] [address] Health Maintenance Due Date Last Done Comments [facility]-Bone Density Scan 1974 [facility]-HIV Screening 1974 [facility]-Hepatitis C Screening 1974 [facility]-Infant/Child/Adol SDOH Screenings 1974 XGT-[id number] Vaccine (#1) 11/25/1979 [facility]- SDOH Screenings 1992 [facility]-Adult SDOH Screenings 1992 [facility]-DTaP,Tdap,and Td Vaccines (1 - Tdap) 1993 [facility]-Hepatitis B Vaccines (1 of 3 - 19+ 3-dose series) 1993 CT Colonography 11/25/2019 Colonoscopy 11/25/2019 FIT-DNA 11/25/2019 FIT 11/25/2019 FOBT 11/25/2019 Sigmoidoscopy 11/25/2019 [facility]-Colorectal Cancer Screening 11/25/2019 [facility]-Zoster Vaccines (1 of 2) 2024 [facility]-Influenza Vaccine (#1) 12/02/202401/01, 03/25/2019, 08/20/2018 [facility]-Depression Screening 06/27/2025 06/27/2024, 06/02 [...] this topic Medical Devices Implanted Type Area Airfield Engineer Officer Device Identifier Shelf Expiration Date Model / Serial / Lot Screw 7.0mm Viper Cfx Fen Xtab 45mm - [id number] Implanted:Qty : 6 on 10/05/2021 by Ricky Osorio MD at [facility] N/A: Spine Lumbar DePWinkcam Spine Sales [id number] / / Ozzy Viper2 Lordotic 90mm - [id number] Implanted:Qty : 2 on 10/05/2021 by Ricky Osorio MD at [facility] N/A: Spine Lumbar DePuy Spine Sales [id number] / / Single Inner Setscrew - [id number] Implanted:Qty : 6 on 10/05/2021 by Ricky Osorio MD at [facility] N/A: Spine Lumbar DePuy Spine Sales [id number] / / Nail 10mm Ti Dorothy Tbl Ex W/Prx Bnd 360mm - [id number] Implanted:Qty : 1 on 07/28/2023 by Taz Muñiz MD at [facility] Right: Tibia [employer] USA-[id number] 07/01/2029 [id number] / / Screw 5.0mm Ti T25 Star Lock For Im Nail 32mm - [id number] Implanted:Qty : 1 on 07/28/2023 by Taz Muñiz MD at [facility] Right: Tibia [employer] [id number] 07/27/2024 [id number] / / Screw 5.0mm Ti T25 Star Lock For Im Nail 38mm - [id number] Implanted:Qty : 1 on 07/28/2023 by aTz Muñiz MD at [facility] Right: [employer] [id number] 07/27/2024 [id number] / / Screw 5.0mm Ti T25 Star Lock For Im Nail 40mm - [id number] Implanted:Qty : 1 on 07/28/2023 by Taz Muñiz MD at [facility] Right: Tib[employer] USA-[id number] 07/27/2024 [id number] / / Screw 5.0mm Ti T25 Star Lock For Im Nail 42mm - [id number] Implanted:Qty : 1 on 07/28/2023 by Taz Muñiz MD at [facility] Right: Tibia [employer] [id number] 07/27/2024 [id number] / / Procedures Procedure Name [...] of right tibia and fibula, initial encounter from Last 3 Months Results * Sedimentation Rate, Automated (07/31/2024 10:54 AM EDT) Sedimentation Rate 2 <15 mm/hr 2024 12:30 PM EDT [facility] Blood Venous blood specimen / Unknown Venipuncture / Unknown 07/31/2024 10:54 AM EDT 07/31/2024 10:54 AM EDT us Taz Muñiz MD LAB BLOOD ORDERABLES Final R esult [facility] [address] [place] [address] * CBC with Differential (07/31/2024 10:54 AM EDT) WBC Count 5.42 3.70 - 10.30 10*3/uL LAB HEMATOLOGY METHOD 07/31/2024 12:12 PM EDT [facility] RBC Count 4.83 4.60 - 6.10 10*6/uL LAB HEMATOLOGY METHOD 07/31/2024 12:12 PM EDT [facility] HGB 14.5 13.7 - 17.5 g/dL LAB HEMATOLOGY METHOD 07/31/2024 12:12 PM EDT [facility] HCT 43.8 40.0 - 51.0 % LAB HEMATOLOGY METHOD 07/31/2024 12:12 PM EDT [facility] Platelet Count 267 155 - 369 10*3/uL LAB HEMATOLOGY METHOD 07/31/2024 12:12 PM EDT [facility] MCV 91 79 - 98 fL LAB HEMATOLOGY METHOD 07/31/2024 12:12 PM EDT [facility] MCH 30.0 26.0 - 32.0 pg LAB HEMATOLOGY METHOD 07/31/2024 12:12 PM EDT [facility] MCHC 33.1 30.7 - 35.5 g/dL LAB HEMATOLOGY METHOD 07/31/2024 12:12 PM EDT [facility] RDW 13.2 11.5 - 14.5 % LAB HEMATOLOGY METHOD 07/31/2024 12:12 PM EDT [facility] MPV 9.6 8.8 - 12.5 fL LAB HEMATOLOGY METHOD 07/31/2024 12:12 PM EDT [facility] nRBC 0.0 <=0.0 per 100 WBCs LAB HEMATOLOGY METHOD 07/31/2024 12:12 PM EDT [facility] Differential Type Automated LAB HEMATOLOGY METHOD 07/31/2024 12:12 PM EDT [facility] Neutrophils % 57 % LAB HEMATOLOGY METHOD 07/31/2024 12:12 PM EDT [facility] Lymphocytes % 29 % LAB HEMATOLOGY METHOD 07/31/2024 12:12 PM EDT [facility] Monocytes % 10 % LAB HEMATOLOGY METHOD 07/31/2024 12:12 PM EDT [facility] Eosinophils % 2 % LAB HEMATOLOGY METHOD 07/31/2024 12:12 PM EDT [facility] Basophils % 1 % LAB HEMATOLOGY METHOD 07/31/2024 12:12 PM EDT [facility] Immature Granulocytes % 1 % LAB HEMATOLOGY METHOD 07/31/2024 12:12 PM EDT [facility] Neutrophils Absolute 3.14 1.60 - 6.10 10*3/uL LAB HEMATOLOGY METHOD 07/31/2024 12:12 PM EDT [facility] Lymphocytes Absolute 1.55 1.20 - 3.90 10*3/uL LAB HEMATOLOGY METHOD 07/31/2024 12:12 PM EDT [facility] Monocytes Absolute 0.52 0.30 - 0.90 10*3/uL LAB HEMATOLOGY METHOD 07/31/2024 12:12 PM EDT [facility] Eosinophils Absolute 0.12 0.00 - 0.50 10*3/uL LAB HEMATOLOGY METHOD 07/31/2024 12:12 PM EDT [facility] Basophils Absolute 0.06 0.00 - 0.10 10*3/uL LAB HEMATOLOGY METHOD 07/31/2024 12:12 PM EDT [facility] Immature Granulocytes Absolute 0.03 0.00 - 0.06 10*3/uL LAB HEMATOLOGY METHOD 07/31/2024 12:12 PM EDT [facility] Blood Venous blood specimen / Unknown Venipuncture / Unknown 07/31/2024 10:54 AM EDT 07/31/2024 10:54 AM EDT [facility] - 07/31/2024 12:12 PM EDT Therapeutic decision making should be based on absolute values, rather than percentages. Taz Muñiz MD LAB BLOOD ORDERABLES Final R esult Performing Organization Address [facility] Co de Phone Number [facility] [address] [place] [address] * C-Reactive Protein, Plasma (07/31/2024 10:54 AM EDT) [facility] CRP, Plasma <3.0 <=8.0 mg/L 07/31/2024 12:57 PM EDT [facility] Blood Venous blood specimen / Unknown Venipuncture / Unknown 07/31/2024 10:54 AM EDT 07/31/2024 10:54 AM EDT [facility] - 07/31/2024 12:57 PM EDT This CRP test is appropriate for assessment of infection, systemic inflammation and/or tissue injury. To assess cardiovascular disease risk order high sensitivity CRP (CRPH). Taz Muñiz MD LAB BLOOD ORDERABLES Final R esult Performing Organization Address [facility] Co de Phone Number [address] [address] * XR Tibia Fibula Right 2+ Views [...] Bandar Mcnulty on 07/31/2024 9:28 AM Brad Yevth IMG XR PROCEDURES Final Res ult from Last 3 Months Insurance [facility] MEDICAID Advance Directives * Full Code (Latest Code Status on File) Date Activated Date Inactivated Comments 07/27/2023 8:23 PM 07/31/2023 5:56 PM Question Answer Comments Patient has decision-making capacity? Yes * Full Code Date Activated Date Inactivated Comments 10/05/2021 8:12 PM 10/21/2021 5:45 PM Question Answer Comments Patient has decision-making capacity? Yes Care Teams Research And Evaluation Analyst Relationship Specialty Start Date End Date Michelle Lane PA [address] [place] [address] PCP - General 10/02/[address] PA [address] [place] [address] 10/02/20
--- OUTSIDE RECORDS SUMMARY | 2024-10-14 12:37 | XMS_ITS | Encounter Summary ---
Author Organization Healthcare Address [address] [place] [place] [address] Care Team Providers Care Brick Veneer Maker Name Role Phone Michelle Lane Primary Care Provider [phone] Unavailable [phone] Reason for Visit * Reason Comments Med Refill Encounter Details Date Type Department Care Team (Late st Contact Info) Description 01/22/2024 Refill [facility] [address] [place] [address] Teena Olivia DO [address] [facility] [address] [place] [address] Social History Tobacco Use Types [...] drink first t anastasia in the morning (EYE-INFORMAL WAITER/WAITRESS) to steady your nerves or to get [...] Miscellaneous Notes * Telephone Encounter - Teena Olivia DO - 01/22/2024 12:32 PM EDT Duplicate * Telephone Encounter - Cielo Baer - 01/22/2024 11:50 AM EDT Rx pended fu appt 06/20 documented in this encounter Plan of Treatment Upcoming Encounters Date Type Department Care Team (Late st Contact Info) Description 10/16/2024 8:15 AM EDT Appointment [facility] [address] [place] [address] Clari English N 10/23/2024 8:15 AM EDT Appointment [facility] [address] [place] [address] Clari English N 10/30/2024 8:15 AM EDT Appointment [facility] [address] [place] [address] Clari English N 11/06/2024 8:15 AM EDT Appointment [facility] [address] [place] [address] AmadorJenifferClari N 11/13/2024 8:15 AM EDT Appointment [facility] [address] [place] [address] Amador Clari N 11/20/2024 8:15 AM EDT Appointment [facility] [address] [place] [address] Amador, Clari N 11/27/2024 8:15 AM EDT Appointment [facility] [address] [place] [address] AmadorJenifferClari N 12/11/2024 8:15 AM EDT Appointment [facility] [address] [place] [address] Amador Clari N 12/18/2024 8:15 AM EDT Appointment [facility] [address] [place] [address] Amador, Clari N 12/25/2024 8:15 AM EDT Appointment [facility] [address] [place] [address] Amador Clari N 06/30/2025 11:50 AM EDT Office Visit [facility] [address] [facility] [place] [address] Teena Olivia DO [address] [facility] [address] [place] [address] documented as of this encounter Visit Diagnoses Not on filedocumented in this encounter Additional Health Concerns Assessment Noted Time A fall risk assessment has been complete d for the patient 01/10/2024 10:23 AM EDT A Body Mass Index follow-up plan has been documented for the patient 01/11/2024 9:22 AM EDT documented as of this encounter Care Teams Brick Veneer Maker Relationship Specialty Start Date End Date Michelle Lane PA [address] [place] [address] PCP - General 10/02/[address] PA [address] [place] [address] 10/02/20 documented as of this encounter
--- OUTSIDE RECORDS SUMMARY | 2024-10-14 12:37 | XMS_ITS | Encounter Summary ---
Author Organization Healthcare Address [address] [place] [address] Care Team Providers Care Disability Case Manager Name Role Phone Michelle Lane Primary Care Provider Michelle Lane Unavailable [phone] Encounter Details Date Type Department Care Team (Late st Contact Info) Description 11/25/2022 Orders Only External Location [address] [place] [address] SolomonYu, DO [address] [place] [address] Social History Tobacco Use Types [...] Appointment [facility] [address] [place] [address] Saundra Englishlyn N 10/23/2024 8:15 AM EDT Appointment [facility] [address] [place] [address] Jeniffer Englishitlyn N 10/30/2024 8:15 AM EDT Appointment [facility] [address] [place] [address] Jeniffer Englishitlyn N 11/06/2024 8:15 AM EDT Appointment [facility] [address] [place] [address] Jeniffer Englishitlyn N 11/13/2024 8:15 AM EDT Appointment [facility] [address] [place] [address] Jeniffer Englishitlyn N 11/20/2024 8:15 AM EDT Appointment [facility] [address] [place] [address] Jeniffer Englishitlyn N 11/27/2024 8:15 AM EDT Appointment [facility] [address] [place] [address] Jeniffer Englishitlyn N 12/11/2024 8:15 AM EDT Appointment [facility] [address] [place] [address] AmadorJenifferClari N 12/18/2024 8:15 AM EDT Appointment [facility] [address] [place] [address] Saundra Englishlyn N 12/25/2024 8:15 AM EDT Appointment [facility] [address] [place] [address] Saundra Englishlyn N 06/30/2025 11:50 AM EDT Office Visit [facility] [address] [place] [address] Teena Olivia DO [address] [place] [address] documented as of this encounter [...] documented as of this encounter Care Teams Disability Case Manager Relationship Specialty Start Date End Date Michelle Lane PA [address] [place] [address] PCP - General 10/02/[address] PA [address] [place] [address] 10/02/20 documented as of this encounter
--- OUTSIDE RECORDS SUMMARY | 2024-10-14 12:37 | XMS_ITS | Encounter Summary ---
Author Organization Healthcare Address [address] [place] [address] Care Team Providers Care Pulp Making Plant Operator Name Role Phone Michelle Lane Primary Care Provider [phone] Unavailable [phone] Encounter Details Date Type Department Care Team (Latest Contact Info) Description 10/09/2024 Travel Social History Tobacco Use Types Packs/Day [...] drink first t anastasia in the morning (EYE-DRIER OPERATOR HEAD) to steady your nerves or to get [...] EDT Appointment [facility] [address] [place] [address] Jeniffer Englishitlyn N 10/23/2024 8:15 AM EDT Appointment [facility] [address] [place] [address] Jeniffer Englishitlyn N 10/30/2024 8:15 AM EDT Appointment [facility] [address] [place] [address] Amador, Clari N 11/06/2024 8:15 AM EDT Appointment [facility] [address] [place] [address] Amador, Clari N 11/13/2024 8:15 AM EDT Appointment [facility] [address] [place] [address] Amador, Clari N 11/20/2024 8:15 AM EDT Appointment [facility] [address] [place] [address] Amador, Clari N 11/27/2024 8:15 AM EDT Appointment [facility] [address] [place] [address] Amador, Clari N 12/11/2024 8:15 AM EDT Appointment [facility] [address] [place] [address] Amador Clari N 12/18/2024 8:15 AM EDT Appointment [facility] [address] [place] [address] Amador Clari N 12/25/2024 8:15 AM EDT Appointment [facility] [address] [place] [address] Clari English N 06/30/2025 11:50 AM EDT Office Visit [facility] [address] [place] [address] Teena Olivia DO [address] [place] [address] documented as of this encounter [...] documented as of this encounter Care Teams Pulp Making Plant Operator Relationship Specialty Start Date End Date Michelle Lane PA [address] [place] [address] PCP - General 10/02/[address] PA [address] [place] [address] 10/02/20 documented as of this encounter
--- OUTSIDE RECORDS SUMMARY | 2024-10-14 12:37 | XMS_ITS | Encounter Summary ---
Author Organization Healthcare Address [address] [place] [address] Care Team Providers Care Digital Sales Manager Name Role Phone Michelle Lane Primary Care Provider [phone] Unavailable [phone] Encounter Details Date Type Department Care Team (Late st Contact Info) Description 09/11/2024 Plan of Care Documentation [facility] [address] [place] [address] Social History Tobacco Use Types [...] drink first t anastasia in the morning (EYE-FRONT DESK AUXILIARY) to steady your nerves or to get [...] EDT Appointment [facility] [address] [place] [address] Saundra Englishlyn N 10/23/2024 8:15 AM EDT Appointment [facility] [address] [place] [address] Amador, Clari N 10/30/2024 8:15 AM EDT Appointment [facility] [address] [place] [address] Amador, Clari N 11/06/2024 8:15 AM EDT Appointment [facility] [address] [place] [address] AmadorJenifferClari N 11/13/2024 8:15 AM EDT Appointment [facility] [address] [place] [address] Amador, Clari N 11/20/2024 8:15 AM EDT Appointment [facility] [address] [place] [address] Amador, Clari N 11/27/2024 8:15 AM EDT Appointment [facility] [address] [place] [address] Amador Clari N 12/11/2024 8:15 AM EDT Appointment [facility] [address] [place] [address] Saundra Englishlyn N 12/18/2024 8:15 AM EDT Appointment [facility] [address] [place] [address] Saundra Englishlyn N 12/25/2024 8:15 AM EDT Appointment [facility] [address] [place] [address] Saundra Englishlyn N 06/30/2025 11:50 AM EDT [facility] Visit [facility] [address] [place] [address] Teena Olivia DO [address] [place] [address] documented as of this encounter [...] as of this encounter Care Teams Digital Sales Manager Relationship Specialty Start Date End Date Michelle Lane PA [address] [place] [address] PCP - General 10/02/[address] PA [address] [place] [address] 10/02/20 documented as of this encounter
--- OUTSIDE RECORDS SUMMARY | 2024-10-14 12:37 | XMS_ITS | Encounter Summary ---
Author Organization Healthcare Address [address] [place] [address] Care Team Providers Care Home Sales Consultant Name Role Phone Michelle Lane Primary Care Provider [phone] Unavailable [phone] Encounter Details Date Type Department Care [...] first t anastasia in the morning (EYE-FISHING ROD MARKER) to steady your nerves or to get [...] EDT Appointment [facility] [address] [place] [address] Jeniffer Englishitlyn N 10/23/2024 8:15 AM EDT Appointment [facility] [address] [place] [address] Jeniffer Englishitlyn N 10/30/2024 8:15 AM EDT Appointment [facility] [address] [place] [address] Amador, Clari N 11/06/2024 8:15 AM EDT Appointment [facility] [address] [place] [address] Amador, Clari N 11/13/2024 8:15 AM EDT Appointment [facility] [address] [place] [address] Amador, Clari N 11/20/2024 8:15 AM EDT Appointment [facility] [address] [place] [address] Amador, Clari N 11/27/2024 8:15 AM EDT Appointment [facility] [address] [place] [address] Amador, Clari N 12/11/2024 8:15 AM EDT Appointment [facility] [address] [place] [address] Amador Clari N 12/18/2024 8:15 AM EDT Appointment [facility] [address] [place] [address] Amador Clari N 12/25/2024 8:15 AM EDT Appointment [facility] [address] [place] [address] Clari English N 06/30/2025 11:50 AM EDT [facility] Visit [facility] [address] [place] [address] Teena Olivia DO [address] [place] [address] documented as of this encounter [...] documented as of this encounter Care Teams Home Sales Consultant Relationship Specialty Start Date End Date Michelle Lane PA [address] [place] [address] PCP - General 10/02/[address] PA [address] [place] [address] 10/02/20 documented as of this encounter
--- OUTSIDE RECORDS SUMMARY | 2024-10-14 12:37 | XMS_ITS | Encounter Summary ---
Author Organization Healthcare Address [address] [place] [address] Care Team Providers Care Cruise Agent Name Role Phone Michelle Lane Primary Care Provider [phone] Unavailable [phone] Encounter Details Date Type Department Care Team (Latest Contact Info) Description 10/02/2024 Travel Social History Tobacco Use Types Packs/Day [...] drink first t anastasia in the morning (EYE-LOCKSTITCH MACHINE OPERATOR) to steady your nerves or to [...] EDT Appointment [facility] [address] [place] [address] Jeniffer Englishitlyn N 10/23/2024 8:15 AM EDT Appointment [facility] [address] [place] [address] Jeniffer Englishitlyn N 10/30/2024 8:15 AM EDT Appointment [facility] [address] [place] [address] Amador, Clari N 11/06/2024 8:15 AM EDT Appointment [facility] [address] [place] [address] Amador, Clari N 11/13/2024 8:15 AM EDT Appointment [facility] [address] [place] [address] Amador, Clari N 11/20/2024 8:15 AM EDT Appointment [facility] [address] [place] [address] Amador, Clari N 11/27/2024 8:15 AM EDT Appointment [facility] [address] [place] [address] Amador, Clari N 12/11/2024 8:15 AM EDT Appointment [facility] [address] [place] [address] Amador Clari N 12/18/2024 8:15 AM EDT Appointment [facility] [address] [place] [address] Amador Clari N 12/25/2024 8:15 AM EDT Appointment [facility] [address] [place] [address] Clari English N 06/30/2025 11:50 AM EDT Office Visit [facility] [address] [place] [address] Teena Olivia DO [address] [place] [address] documented as of this encounter [...] documented as of this encounter Care Teams Cruise Agent Relationship Specialty Start Date End Date Michelle Lane PA [address] [place] [address] PCP - General 10/02/20 Michelle aLne PA [address] [place] [address] 10/02/20 documented as of this encounter
--- OUTSIDE RECORDS SUMMARY | 2024-10-14 12:37 | XMS_ITS | Encounter Summary ---
Author Organization Healthcare Address [address] [place] [address] Care Team Providers Care Cnc Machine Operator Name Role Phone Michelle Lane Primary Care Provider [phone] Unavailable [phone] Encounter Details Date Type Department Care [...] drink first t anastasia in the morning (EYE-DRYWALL FINISHER) to steady your nerves or to get [...] EDT Appointment [facility] [address] [place] [address] Jeniffer Englishitlyn N 10/23/2024 8:15 AM EDT Appointment [facility] [address] [place] [address] Jeniffer Englishitlyn N 10/30/2024 8:15 AM EDT Appointment [facility] [address] [place] [address] Amador, Clari N 11/06/2024 8:15 AM EDT Appointment [facility] [address] [place] [address] Amador, Clari N 11/13/2024 8:15 AM EDT Appointment [facility] [address] [place] [address] Amador, Clari N 11/20/2024 8:15 AM EDT Appointment [facility] [address] [place] [address] Amador, Clari N 11/27/2024 8:15 AM EDT Appointment [facility] [address] [place] [address] Amador, Clari N 12/11/2024 8:15 AM EDT Appointment [facility] [address] [place] [address] Amador Clari N 12/18/2024 8:15 AM EDT Appointment [facility] [address] [place] [address] Amador Clari N 12/25/2024 8:15 AM EDT Appointment [facility] [address] [place] [address] Clari English N 06/30/2025 11:50 AM EDT Office Visit [facility] [address] [place] [address] Teena Olivia DO [address] [place] [address] documented as of this encounter [...] documented as of this encounter Care Teams Cnc Machine Operator Relationship Specialty Start Date End Date Michelle Lane PA [address] [place] [address] PCP - General 10/02/[address] PA [address] [place] [address] 10/02/20 documented as of this encounter
--- OUTSIDE RECORDS SUMMARY | 2024-10-14 12:37 | XMS_ITS | Encounter Summary ---
Author Organization Healthcare Address [address] [place] [address] Care Team Providers Care Intensive Care Anaesthetist Name Role Phone Michelle Lane Primary Care Provider [phone] Unavailable [phone] Encounter Details Date Type Department Care Team (Late st Contact Info) Description 10/11/2021 Lab Requisition [facility] [address] [place] [address] Jesus Becerril MD [address] [address] Encounter for general adult medical [...] Appointment [facility] [address] [place] [address] Amador, Clari N 10/23/2024 8:15 AM EDT Appointment [facility] [address] [place] [address] Amador, Clari N 10/30/2024 8:15 AM EDT Appointment [facility] [address] [place] [address] Amador, Clari N 11/06/2024 8:15 AM EDT Appointment [facility] [address] [place] [address] Amador, Clari N 11/13/2024 8:15 AM EDT Appointment [facility] [address] [place] [address] Amador, Clari N 11/20/2024 8:15 AM EDT Appointment [facility] [address] [place] [address] Amador, Clari N 11/27/2024 8:15 AM EDT Appointment [facility] [address] [place] [address] Amador, Clari N 12/11/2024 8:15 AM EDT Appointment [facility] [address] [place] [address] Amador, Clari N 12/18/2024 8:15 AM EDT Appointment [facility] [address] [place] [address] Amador, Clari N 12/25/2024 8:15 AM EDT Appointment [facility] [address] [place] [address] Amador, Clari N 06/30/2025 11:50 AM EDT Office Visit [facility] [address] [place] [address] Teena Olivia DO [address] [place] [address] documented as of this encounter [...] ORDERABLES Final Result [facility] [address] [place] [address] documented in this encounter Visit Diagnoses Diagnosis Encounter for general adult medical examination without abnormal findings documented in this encounter Care Teams Intensive Care Anaesthetist Relationship Specialty Start Date End Date Michelle Lane PA [address] [place] [address] PCP - General 10/02/[address] PA [address] [place] [address] 10/02/20 documented as of this encounter
--- OUTSIDE RECORDS SUMMARY | 2024-10-14 12:37 | XMS_ITS | Encounter Summary ---
Author Organization Healthcare Address [address] [place] [address] Care Team Providers Care Typesetters Printer Name Role Phone Michelle Lane Primary Care Provider Michelle Lane Unavailable [phone] Encounter Details Date Type Department Care Team (Late st Contact Info) Description 11/25/2022 Orders Only External Location [address] [place] [address] SolomonYu, DO [address] [place] [address] Social History Tobacco Use Types [...] Appointment [facility] [address] [place] [address] Saundra Englishlyn N 10/23/2024 8:15 AM EDT Appointment [facility] [address] [place] [address] Jeniffer Englishitlyn N 10/30/2024 8:15 AM EDT Appointment [facility] [address] [place] [address] Jeniffer Englishitlyn N 11/06/2024 8:15 AM EDT Appointment [facility] [address] [place] [address] Jeniffer Englishitlyn N 11/13/2024 8:15 AM EDT Appointment [facility] [address] [place] [address] Jeniffer Englishitlyn N 11/20/2024 8:15 AM EDT Appointment [facility] [address] [place] [address] Jeniffer Englishitlyn N 11/27/2024 8:15 AM EDT Appointment [facility] [address] [place] [address] Jeniffer Englishitlyn N 12/11/2024 8:15 AM EDT Appointment [facility] [address] [place] [address] AmadorJenifferClari N 12/18/2024 8:15 AM EDT Appointment [facility] [address] [place] [address] Saundra Englishlyn N 12/25/2024 8:15 AM EDT Appointment [facility] [address] [place] [address] Saundra Englishlyn N 06/30/2025 11:50 AM EDT Office Visit [facility] [address] [place] [address] Teena Olivia DO [address] [place] [address] documented as of this encounter [...] documented as of this encounter Care Teams Typesetters Printer Relationship Specialty Start Date End Date Michelle Lane PA [address] [place] [address] PCP - General 10/02/[address] PA [address] [place] [address] 10/02/20 documented as of this encounter
--- OUTSIDE RECORDS SUMMARY | 2024-10-14 12:37 | XMS_ITS | Encounter Summary ---
Author Organization Healthcare Address [address] [place] [place] [address] Care Team Providers Care Dental Scheduling Coordinator Name Role Phone Michelle Lane Primary Care Provider [phone] Unavailable [phone] Encounter Details Date Type Department Care Team (Late st Contact Info) Description 06/28/2024 Orders Only External Location [address] [place] [address] Provider, External Social History Tobacco Use Types [...] drink first t anastasia in the morning (EYE-SERVOMECHANISM DESIGNER) to steady your nerves or to get [...] Info) Description 10/16/2024 8:15 AM EDT [facility] [address] [place] [address] Jeniffer Englishitlyn N 10/23/2024 8:15 AM EDT Appointment [facility] [address] [place] [address] Amador, Clari N 10/30/2024 8:15 AM EDT Appointment [facility] [address] [place] [address] Amador, Clrai N 11/06/2024 8:15 AM EDT Appointment [facility] [address] [place] [address] Amador, Clari N 11/13/2024 8:15 AM EDT Appointment [facility] [address] [place] [address] Amador, Clari N 11/20/2024 8:15 AM EDT Appointment [facility] [address] [place] [address] Amador, Clari N 11/27/2024 8:15 AM EDT Appointment [facility] [address] [place] [address] Amador, Clari N 12/11/2024 8:15 AM EDT Appointment [facility] [address] [place] [address] Amador Clari N 12/18/2024 8:15 AM EDT Appointment [facility] [address] [place] [address] Amador Clari N 12/25/2024 8:15 AM EDT Appointment [facility] [address] [place] [address] Amador Clari N 06/30/2025 11:50 AM EDT Office Visit [facility] at [facility] [address] [place] [address] Teena Olivia DO [address] [facility] [address] [place] [address] documented as of this encounter [...] documented as of this encounter Care Teams Dental Scheduling Coordinator Relationship Specialty Start Date End Date Michelle Lane PA [address] [place] [address] PCP - General 10/02/[address] PA [address] [place] [address] 10/02/20 documented as of this encounter
--- NOTE | 2024-10-14 13:10 | XR_ITS ---
PROCEDURE INFORMATION: Exam: XR Right Ankle Exam date and time: 10/14/2024 1:23 PM Age: 48 years old Clinical indication: Injury or trauma; Fall; Other: Pain; Additional info: Tenderness S/P fall, hardware in place TECHNIQUE: Imaging protocol: Radiologic exam of the right ankle. Views: 3 or more views. COMPARISON: CR XR FOOT WT BEARING RT 3V 07/13/2023 10:33 AM FINDINGS: Bones/joints: Partially seen distal tibial fixation gab and distal screws in normal alignment. No hardware fractures. Extensive callus formation at the included segments of the distal tibial fracture, without evidence of new fractures. Distal fibular diaphyseal healed fracture. No dislocation. Preserved joint spaces. Soft tissues: No significant swelling. IMPRESSION: No definite hardware fracture or bone/perihardware fractures in these films.
--- NOTE | 2024-10-14 13:10 | XR_ITS ---
PROCEDURE INFORMATION: Exam: XR Right Tibia and Fibula Exam date and time: 10/14/2024 1:23 PM Age: 48 years old Clinical indication: Injury or trauma; Fall; Other: Pain; Additional info: Tenderness after fall, hardware in place TECHNIQUE: Imaging protocol: Radiologic exam of the right tibia and fibula. Views: 2 views. COMPARISON: CR XR TIBIA FIBULA RT 2V 10/14/2024 1:23 PM FINDINGS: Bones/joints: Tibial intramedullary gab with proximal and distal screws appears in place without evidence of loosening or hardware fractures. Comminuted distal tibial partially healed fracture with extensive callus formation and areas of periosteal reaction. Distal fibular diaphyseal healed fracture. No dislocation. Soft tissues: No significant swelling. IMPRESSION: 1. No hardware fractures or malalignment. Comminuted distal tibial fracture has extensive callus formation and areas of periosteal reaction, favoring healing. There are areas of lucency at the fracture site, which I am unclear if related to unhealed segments (favored) or new fractures (less likely). Comparison with prior studies would be beneficial. Consider close follow-up. 2. No other new fractures or dislocation.
[2024-10-14] MEDS: APAP/HYDROCODONE 325MG/7.5MG TAB 1 TAB PO (13:40)
[2024-10-14] MEDS: IBUPROFEN 800 MG TABLET PO (13:40)
[2024-10-14] MEDS: ACETAMINOPHEN 500MG TAB 500 MG PO (13:40)
[2024-10-14 15:50] VITALS: BP 125/80; PULSE 60; RESP 18; TEMP 36.7; O2SAT 99
== END 2024-10-14 15:50 | disposition home or self-care (01) ==
PROVIDERS: Emergency Provider Student in an Organized Health Care Education/Training Program; PCP Nurse Practitioner Family
DX: S86.911A Strain of unspecified muscle(s) and tendon(s) at lower leg level, right leg, initial encounter (principal); W23.0XXA Caught, crushed, jammed, or pinched between moving objects, initial encounter
CPT/HCPCS: 73590; 73610; 99283

== ENCOUNTER 2025-01-02 09:24 | Outpatient (CLI) | payer OTHER, SELFPAY ==
--- OUTSIDE RECORDS SUMMARY | 2024-11-13 08:15 | XMS_ITS | Encounter Summary ---
Author Organization Healthcare Address [address] [place] [address] Care Team Providers Care Police Officer Name Role Phone Michelle Lane Primary Care Provider [phone] Unavailable [phone] Reason for Visit * Consultation (Routine) - Authorized Specialty Diagnoses / Procedures Referred By Elvis lemus Referred To Contact Physical Therapy Diagnoses Paraplegia, complete (CMS/HCC) Neuropathic pain Injury of lumbar spinal cord, initial encounter Incomplete paraplegia (CMS/HCC) Teena Olivia, [address] [facility] [address] [place] [address] Phone: tel: fax: [facility] [address] [place] [address] Phone: tel: fax: Referral ID Status Reason Start Date Expiration Date Visits Requested Visits Authorized [id number] Authorized Specialty Services Required 06/27/2024 12/27/2025 1 20 Encounter Details Date Type Department Care Team (Latest Contact Info) Description 11/13/2024 8:15 AM EDT - 11/13/2024 11:59 PM EDT Hospital Encounter [facility] [address] [place] [address] Clari English Incomplete paraplegia (CMS/HCC) (Primary Dx); [...] drink first t anastasia in the morning (EYE-CONSTRUCTION RIGGER) to steady your nerves or to get [...] 1 (one) time each day. HYDROcodone-acet aminophen (Phelps) 7.5-325 MG tablet Take 1 tablet (7.5 mg of hydrocodone) by mouth every 12 (twelve) hours if needed. 01/03/2022 lidocaine (Lidoderm) 5 % patch Apply 1 patch topically 1 (one) time each day. Remove & discard patch within 12 hours or as directed by MD. losartan (Cozaar) 50 MG tablet Take 1 [...] encounter Miscellaneous Notes * Progress Notes - Clari English - 11/13/2024 8:15 AM EDT Physical Therapy PT Treatment Note DATE: 11/13/24 NAME: Alonzo Gallegos Date of : 1975 Therapist: Clari English Subjective I am doing well General Time In: 814 Time Out: 0900 Chart Reviewed: Yes Family/Caregiver Present: No Director Of District Office: Not Applicable General Director Of District Office: Not Applicable Pain R lower leg- 810 With bioness on reports -07/11 pain Treatment Therapeutic Activity: 40 minutes - bioness education and set up (bilateral TAs stimulated), adjustments made to improve stim tolerance - trial of TENS unit - ambulation of total of 750 ft with TENS and bioness with reports of both effective for pain management Education Today's Treatment Needs Communication Device: No Patient Understanding of Basic Information: Understands, able to self manage Barriers to Learning: None Readiness to Learn: Accepting Did Patient/Family Demonstrate Learning: Pt/Family verbalizes understanding Who Was Educated: Patient Assessment Pt demonstrates good success with TENS trial today for pain management. Pt educated on benefit of trial next session with personal unit. Reports using before with good success. Provided electrodes and educated to not wear for longer than 1 hr at a time for skin protection. Reports understanding. Follow up to continue. Next session: TENS and zeroG balance for work Goals Short Term Goals (4 weeks): Pt will show 4 point increase on FGA to demonstrate MDC. Pt will demonstrate a 0.13 m/s improvement on the 10mWT indicating a MDC in the assessment Pt will demonstrate a 45 m improvement on the 6MWT indicating a MDC in the assessment Curtain Roller Assembler Goals (12 weeks): Pt will ambulate at a gait speed of >/=1.2 m/s indicating appropriate gait speed for community mobility as determined by the 10mWT 10/30/2024: GOAL ONGOING. Pt currently ambulates at 0.85 m/s. Pt will ambulate a distance of >300m indicating safe endurance for community mobility as determined by the 6MWT 10/30/2024: GOAL ONGOING. Pt ambulated 232.9 meters this date. Pt will demonstrate independence with HEP for ongoing progression of balance, strength, endurance, and ROM to work towards goals. 10/30/2024: GOAL ONGOING. Look to continue progressing. Access Code: [email or web address] URL: [email or web address] Date: 10/02/2024 Prepared by: Clari English Exercises [...] weekly - 3 sets - 10 reps Pt will ambulate with with Alexa with least restrictive assistive device reporting pain avg of </= 3/10 10/30/2024: GOAL ONGOING. Pt reports /10 consistently. Pt will score >22/30 on FGA indicating low fall risk. 10/30/2024: GOAL ONGOING. Pt progressing to 04/01 this date. Pt report no more than 1 fall per month during work activities to demonstrate an improvement in dynamic balance 10/30/2024: GOAL ONGOING. Pt reports less frequent falls but still at least 1 per month. Plan Plan Continue With Current Plan of Care: Continue With Current Plan of Care Written by Clari English on 11/13/24 at 7:24 AM documented in this encounter Plan of Treatment Upcoming Encounters Date Type Department Care Team (Late st Contact Info) Description 06/30/2025 11:50 AM EDT Office Visit [facility] at [facility] [address] [place] [address] Teena Olivia DO [address] [place] [address] documented as of this encounter [...] documented as of this encounter Care Teams Police Officer Relationship Specialty Start Date End Date Michelle Lane PA [address] [place] [address] PCP - General 10/02/[address] PA [address] [place] [address] 10/02/20 documented as of this encounter
--- OUTSIDE RECORDS SUMMARY | 2024-11-20 08:05 | XMS_ITS | Encounter Summary ---
Author Organization Healthcare Address [address] [place] [address] Care Team Providers Care Bobbin Disker Name Role Phone Michelle Lane Primary Care Provider [phone] Unavailable [phone] Reason for Visit * Consultation (Routine) - Authorized Specialty Diagnoses / Procedures Referred By Elvis lemus Referred To Contact Physical Therapy Diagnoses Paraplegia, complete (CMS/HCC) Neuropathic pain Injury of lumbar spinal cord, initial encounter Incomplete paraplegia (CMS/HCC) Teena Olivia, [address] [facility] [address] [place] [address] Phone: tel: fax: [facility] [address] [place] [address] Phone: tel: fax: Referral ID Status Reason Start Date Expiration Date Visits Requested Visits Authorized [id number] Authorized Specialty Services Required 06/27/2024 12/27/2025 1 20 Encounter Details Date Type Department Care Team (Latest Contact Info) Description 11/20/2024 8:05 AM EDT - 11/20/2024 11:59 PM EDT Hospital Encounter [facility] [address] [place] [address] Clari English Incomplete paraplegia (CMS/HCC) (Primary Dx); [...] drink first t anastasia in the morning (EYE-LICENSED ELECTRICIAN) to steady your nerves or to get [...] 1 (one) time each day. HYDROcodone-acet aminophen ([place]) 7.5-325 MG tablet Take 1 tablet (7.5 [...] * Progress Notes - Clari English - 11/20/2024 8:15 AM EDT Physical Therapy PT Treatment Note DATE: 11/20/24 NAME: Alonzo Gallegos Date of : 1975 Therapist: Clari English Subjective My back stimulator quit working a few days ago and my leg has been working more General Time In: 814 Time Out: 899 Chart Reviewed: Yes Family/Caregiver Present: No Fire Prevention Captain: Not Applicable General Fire Prevention Captain: Not Applicable Pain R lower leg- 01/10 With TENS pain Treatment Therapeutic Activity: 45 minutes - trial of TENS unit- mild improvement - ambulation 200 ft with TENS - zeroG obstacle course with 6 hurdles, blue foam and black foam with 10 lbs BWS with single crutch (S) - education on calf raises to help with ankle strength- education on HEP progression Education Today's Treatment Needs Communication Device: No Patient Understanding of Basic Information: Understands, able to self manage Barriers to Learning: None Readiness to Learn: Accepting Did Patient/Family Demonstrate Learning: Pt/Family verbalizes understanding Who Was Educated: Patient Assessment Pt has mild improvement with TENS today. Will be meeting with MD to discuss pain management soon per report. Trials ambulation without use of an assistive device with poor success with decreased safety awareness. Educated on session to focus on strength and balance with future sessions. Follow up to continue. Next session: updated strength and zeroG balance for work Goals Short Term Goals (4 weeks): Pt will show 4 point increase on FGA to demonstrate MDC. Pt will demonstrate a 0.13 m/s improvement on the 10mWT indicating a MDC in the assessment Pt will demonstrate a 45 m improvement on the 6MWT indicating a MDC in the assessment Long-Term Goals (12 weeks): Pt will ambulate at [...] ONGOING. Look to continue progressing. Access Code: [email or web address] URL: [email or web address] Date: 10/02/2024 Prepared by: Clari English Exercises [...] </= 3/10 10/30/2024: GOAL ONGOING. Pt reports / consistently. Pt will score >22/30 on FGA [...] of Care Written by Clari English on 11/20/24 at 8:56 AM documented in this encounter Plan of Treatment Upcoming Encounters Date Type Department Care Team (Late st Contact Info) Description 06/30/2025 11:50 AM EDT Office Visit Physical Medicine & Rehabilitation Clinic at [facility] [address] [place] [address] Teena Olivia DO [address] [place] [address] documented as of this encounter [...] documented as of this encounter Care Teams Bobbin Disker Relationship Specialty Start Date End Date Michelle Lane PA [address] [place] [address] PCP - General 10/02/[address] PA [address] [facility] [place] [address] 10/02/20 documented as of this encounter
--- OUTSIDE RECORDS SUMMARY | 2024-11-27 08:11 | XMS_ITS | Encounter Summary ---
Author Organization Healthcare Address [address] [place] [address] Care Team Providers Care Site Specialist Name Role Phone Michelle Lane Primary Care Provider [phone] Unavailable [phone] Reason for Visit * Consultation (Routine) - Authorized Specialty Diagnoses / Procedures Referred By Elvis lemus Referred To Contact Physical Therapy Diagnoses Paraplegia, complete (CMS/HCC) Neuropathic pain Injury of lumbar spinal cord, initial encounter Incomplete paraplegia (CMS/HCC) Teena Olivia, [address] [facility] [address] [place] [address] Phone: tel: fax: [facility] [address] [place] [address] Phone: tel: fax: Referral ID Status Reason Start Date Expiration Date Visits Requested Visits Authorized [id number] Authorized Specialty Services Required 06/27/2024 12/27/2025 1 20 Encounter Details Date Type Department Care Team (Latest Contact Info) Description 11/27/2024 8:11 AM EDT - 11/27/2024 11:59 PM EDT Hospital Encounter [facility] Therapy [address] [place] [address] Clari English Incomplete paraplegia (CMS/HCC) (Primary Dx); [...] drink first t anastasia in the morning (EYE-AGRICULTURE SCIENCE TEACHER) to steady your nerves or to get [...] 1 (one) time each day. HYDROcodone-acet aminophen ([place]) 7.5-325 MG tablet Take 1 tablet (7.5 [...] * Progress Notes - Clari English - 11/27/2024 8:15 AM EDT Physical Therapy PT Treatment Note DATE: 11/27/24 NAME: Alonzo Gallegos Date of : 1975 Therapist: Clari English Subjective My leg is pretty sore still. I think I get my leg stimulator at the end of the month General Time In: 814 Time Out: 09 Chart Reviewed: Yes Family/Caregiver Present: No Cloth Piecer: Not Applicable General Cloth Piecer: Not Applicable Pain R lower leg- 11/10 With TENS pain Treatment Therapeutic Activity: 45 minutes - TENS set up/take down- mild improvement in symptoms - ZeroG set up/take down - balance activities in ZeroG - ambulation over varying surface including river stones, blue foam and black foam (3 round for over 426 ft total in session) - standing on black foam while hitting balloon with walking stick (3x1 minute) - standing balance with single UE support with walking stick while completing toe tap to blaze pod (3x1 minute) Education Today's Treatment Needs Communication Device: No Patient Understanding of Basic Information: Understands, able to self manage Barriers to Learning: None Readiness to Learn: Accepting Did Patient/Family Demonstrate Learning: Pt/Family verbalizes understanding Who Was Educated: Patient Assessment Pt has mild improvement with TENS today. Pt demonstrates good challenge with interventions, but shows signs of decreased stargth and endurance towards end of session and requires use of walking stickfor balance with toe taps. Unable to stand put right without trunk flexion towards final activity. Pt will continue to benefit from skilled PT interventions to work towards stated goals. Next session: updated strength and zeroG balance for work Goals Short Term Goals (4 weeks): Pt will show 4 point increase on FGA to demonstrate MDC. Pt will demonstrate a 0.13 m/s improvement on the 10mWT indicating a MDC in the assessment Pt will demonstrate a 45 m improvement on the 6MWT indicating a MDC in the assessment Senior Living Goals (12 weeks): Pt will ambulate at [...] ONGOING. Look to continue progressing. Access Code: [email or web address] URL: [email or web address] Date: 10/02/2024 Prepared by: Clari English Exercises [...] </= 3/10 10/30/2024: GOAL ONGOING. Pt reports 10/10 consistently. Pt will score >22/30 on FGA [...] of Care Written by Clari English on 11/27/24 at 7:45 AM documented in this encounter Plan of Treatment Upcoming Encounters Date Type Department Care Team (Late st Contact Info) Description 06/30/2025 11:50 AM EDT Office Visit Physical Medicine & Rehabilitation Clinic at [facility] [address] [place] [address] Rachid Du Teena, DO [address] [facility] [address] [place] [address] documented as of this encounter [...] documented as of this encounter Care Teams Site Specialist Relationship Specialty Start Date End Date Michelle Lane PA [address] [place] [address] PCP - General 10/02/[address] PA [address] [place] [address] 10/02/20 documented as of this encounter
--- OUTSIDE RECORDS SUMMARY | 2025-01-02 09:30 | XMS_ITS | Encounter Summary ---
Author Organization Healthcare Address [address] [place] [address] Care Team Providers Care Lamp Shade Assembler Name Role Phone Michelle Lane Primary Care Provider Michelle Lnae Unavailable [phone] Encounter Details Date Type Department Care Team (Late st Contact Info) Description 11/25/2022 Orders Only External Location [address] [place] [address] SolomonYu, DO [address] [place] [address] Social History Tobacco Use Types [...] Description 06/30/2025 11:50 AM EDT Office Visit [facility] at [facility] [address] [place] [address] Teena Olivia DO [address] [place] [address] documented as of this encounter [...] documented as of this encounter Care Teams Lamp Shade Assembler Relationship Specialty Start Date End Date Michelle Lane PA [address] [place] [address] PCP - General 10/02/[address] PA [address] [place] [address] 10/02/20 documented as of this encounter
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
--- OUTSIDE RECORDS SUMMARY | 2025-01-02 09:30 | XMS_ITS | Encounter Summary ---
Author Organization Healthcare Address [address] [place] [place] [address] Care Team Providers Care Laboratory Veterinarian Name Role Phone Michelle Lane Primary Care Provider [phone] Unavailable [phone] Encounter Details Date Type Department Care Team (Late st Contact Info) Description 06/28/2024 Orders Only External Location [address] [place] [address] Provider, External Social History Tobacco Use Types [...] drink first t anastasia in the morning (EYE-LEAD CARGO MOVER) to steady your nerves or to get [...] [facility] at [facility] [address] [place] [address] Teena Olivia DO [address] [place] [address] documented as of this encounter [...] documented as of this encounter Care Teams Laboratory Veterinarian Relationship Specialty Start Date End Date Michelle Lane PA [address] [place] [address] PCP - General 10/02/[address] PA [address] [place], [place] [address] 10/02/20 documented as of this encounter
--- OUTSIDE RECORDS SUMMARY | 2025-01-02 09:30 | XMS_ITS | Encounter Summary ---
Author Organization Healthcare Address [address] [place] [address] Care Team Providers Care Office Machine Service Supervisor Name Role Phone Michelle Lane Primary Care Provider [phone] Unavailable [phone] Encounter Details Date Type Department Care Team (Latest Contact Info) Description 11/13/2024 Travel Social History Tobacco Use Types Packs/Day [...] drink first t anastasia in the morning (EYE-CERTIFIED FRAUD EXAMINER) to steady your nerves or to get [...] Physical Medicine & Rehabilitation Clinic at [facility] [address] [place] [address] Teena Olivia DO [address] [place] [address] documented as of this encounter [...] documented as of this encounter Care Teams Office Machine Service Supervisor Relationship Specialty Start Date End Date Michelle Lane PA [address] [place] [address] PCP - General 10/02/[address] PA [address] [place] [address] 10/02/20 documented as of this encounter
--- OUTSIDE RECORDS SUMMARY | 2025-01-02 09:30 | XMS_ITS | Encounter Summary ---
Author Organization [facility] Address [address] [place] [address] Care Team Providers Care Dog Catcher Name Role Phone Michelle Lane Primary Care Provider [phone] Unavailable [phone] Reason for Visit * Reason Comments Med Refill Encounter Details Date Type Department Care Team (Late st Contact Info) Description 01/09/2022 Refill [facility] at [facility] [address] [place] [address] Georgina Michael MD [address] [facility] [address] [place] [address] Injury of lumbar spinal cord, 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[facility]); Paraplegia, complete ([facility]) Social History Tobacco Use Types Packs/Day Years [...] Visit Physical Medicine & Rehabilitation Clinic at [facility] [address] [place] [address] Teena Olivia, [address] [place] [address] documented as of this encounter Visit Diagnoses Diagnosis Injury of lumbar spinal cord, initial encounter Paraplegia, complete (CMS/HCC) documented in this encounter Additional Health Concerns Assessment Noted Time A fall risk assessment has been complete d for the patient 01/06/2022 12:50 PM EDT documented as of this encounter Care Teams Dog Catcher Relationship Specialty Start Date End Date Michelle Lane PA [address] [place] [address] PCP - General 10/02/[address] PA [address] [place] [address] 10/02/20 documented as of this encounter
--- OUTSIDE RECORDS SUMMARY | 2025-01-02 09:30 | XMS_ITS | Encounter Summary ---
Author Organization Healthcare Address [address] [place] [address] Care Team Providers Care Food And Nutrition Services Assistant Name Role Phone Michelle Lane Primary Care Provider [phone] Unavailable [phone] Encounter Details Date Type Department Care Team (Late st Contact Info) Description 01/01/2025 Telephone [facility] Therapy [address] [place] [address] Clari English Social History Tobacco Use Types Packs/Day Years [...] drink first t anastasia in the morning (EYE-VINEGAR MAKER) to steady your nerves or to get [...] encounter Miscellaneous Notes * Telephone Encounter - Clari English - 01/01/2025 8:47 AM EDT LVM with patient about 3rd no call no show visit for PT this month. Educated on discharge from skilled PT due to attendance policy as well as to reach out to clinic directly to discuss options for returning to skilled PT. Phone number for clinic provided ([phone]). documented in this encounter Plan of Treatment Upcoming Encounters Date Type Department Care Team (Late st Contact Info) Description 06/30/2025 11:50 AM EDT Office Visit [facility] at [facility] [address] [address] Teena Olivia, [address] [facility] [address] [place] [address] documented as of this encounter [...] documented as of this encounter Care Teams Food And Nutrition Services Assistant Relationship Specialty Start Date End Date Michelle Lane PA [address] [place] [address] PCP - General 10/02/[address] PA [address] [place] [address] 10/02/20 documented as of this encounter
--- OUTSIDE RECORDS SUMMARY | 2025-01-02 09:30 | XMS_ITS | Encounter Summary ---
Author Organization Healthcare Address [address] [place] [address] Care Team Providers Care Cloth Spreader Screen Printing Name Role Phone Michelle Lane Primary Care Provider [phone] Unavailable [phone] Encounter Details Date Type Department Care Team (Latest Contact Info) Description 11/27/2024 Travel Social History Tobacco Use Types Packs/Day [...] drink first t anastasia in the morning (EYE-DREDGE HAND) to steady your nerves or to get [...] [facility] at [facility] [address] [place] [address] Teena Olivia DO [address] [place] [address] documented as of this encounter [...] documented as of this encounter Care Teams Cloth Spreader Screen Printing Relationship Specialty Start Date End Date Michelle Lane PA [address] [place] [address] PCP - General 10/02/[address] PA [address] [place] [address] 10/02/20 documented as of this encounter
--- OUTSIDE RECORDS SUMMARY | 2025-01-02 09:30 | XMS_ITS | Encounter Summary ---
Author Organization Healthcare Address [address] [place] [address] Care Team Providers Care Business Systems Consultant Name Role Phone Michelle Lane Primary Care Provider [phone] Unavailable [phone] Encounter Details Date Type Department Care Team (Latest Contact Info) Description 11/20/2024 Travel Social History Tobacco Use Types Packs/Day [...] drink first t anastasia in the morning (EYE-SALES FORCE DEVELOPER) to steady your nerves or to get [...] [facility] at [facility] [address] [place] [address] Teena Olivia DO [address] [place] [address] documented as of this encounter [...] documented as of this encounter Care Teams Business Systems Consultant Relationship Specialty Start Date End Date Michelle Lane PA [address] [place] [address] PCP - General 10/02/[address] PA [address] [place] [address] 10/02/20 documented as of this encounter
--- OUTSIDE RECORDS SUMMARY | 2025-01-02 09:30 | XMS_ITS | Encounter Summary ---
Author Organization Healthcare Address [address] [place] [address] Care Team Providers Care Turf Sales Person Name Role Phone Michelle Lane Primary Care Provider [phone] Unavailable [phone] Encounter Details Date Type Department Care Team (Late st Contact Info) Description 11/25/2022 Orders Only External Location [address] [place] [address] SolomonYu, DO [address] [place] [address] Social History Tobacco Use Types [...] [facility] at [facility] [address] [place] [address] Teena Olivia DO [address] [place] [address] documented as of this encounter [...] documented as of this encounter Care Teams Turf Sales Person Relationship Specialty Start Date End Date Michelle Lane PA [address] [place] [address] PCP - General 10/02/[address] PA [address] [place] [address] 10/02/20 documented as of this encounter
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
--- OUTSIDE RECORDS SUMMARY | 2025-01-02 09:30 | XMS_ITS | Encounter Summary ---
Author Organization Healthcare Address [address] [place] [address] Care Team Providers Care Contact Lens Inspector Name Role Phone Michelle Lane Primary Care Provider [phone] Unavailable [phone] Encounter Details Date Type Department Care Team (Late st Contact Info) Description 10/11/2021 Lab Requisition [facility] [address] [place] [address] Jesus Becerril MD [address] [address] Encounter for general adult medical [...] [facility] [address] [place] [place] [address] Teena Olivia, [address] [place] [address] documented as of this encounter Procedures Procedure Name Priority Date/Time Associated Diagnosis Comments MULTI DRUG RESISTANCE TEST Routine 10/11/2021 10:35 AM EDT Encounter for general adult medical examination without abnormal findings documented in this encounter Results * Multi Drug Resistance Test (10/11/2021 10:35 AM EDT) Culture No growth at day 1 10/12/2021 2:45 PM EDT [facility] Swab (Nares and Justine Rectal) 10/11/2021 10:35 AM EDT 10/11/2021 11:04 AM EDT us Jesus Sher MD LAB MICROBIOLOGY - GENERAL ORDERABLES Final Result [facility] [address] [place] [address] documented in this encounter Visit Diagnoses Diagnosis Encounter for general adult medical examination without abnormal findings documented in this encounter Care Teams Contact Lens Inspector Relationship Specialty Start Date End Date Michelle Lane PA [address] [place] [address] PCP - General 10/02/[address] PA [address] [place] [address] 10/02/20 documented as of this encounter
--- OUTSIDE RECORDS SUMMARY | 2025-01-02 09:30 | XMS_ITS | Encounter Summary ---
Author Organization Healthcare Address [address] [place] [address] Care Team Providers Care Wheat Buyer Name Role Phone Michelle Lane Primary Care Provider [phone] Unavailable Encounter Details Date Type Department Care Team (Latest Contact Info) Description 11/06/2024 Travel Social History Tobacco Use Types Packs/Day [...] drink first t anastasia in the morning (EYE-PRESSURE WELDER) to steady your nerves or to get [...] [facility] [address] [place] [address] Teena Olivia DO [address] [place] [address] documented as of this encounter [...] documented as of this encounter Care Teams Wheat Buyer Relationship Specialty Start Date End Date Michelle Lane PA [address] [place] [address] PCP - General 10/02/[address] PA [address] [place] [address] 10/02/20 documented as of this encounter
--- OUTSIDE RECORDS SUMMARY | 2025-01-02 09:30 | XMS_ITS | Encounter Summary ---
Author Organization Healthcare Address [address] [place] [address] Care Team Providers Care Reservations Clerk Name Role Phone Michelle Lane Primary Care Provider [phone] Unavailable [phone] Reason for Visit * Reason Comments Med Refill Encounter Details Date Type Department Care Team (Late st Contact Info) Description 01/22/2024 Refill [facility] [address] [place] [address] Teena Olivia DO [address] [facility] [address] [place] [address] Social History Tobacco Use Types [...] drink first t anastasia in the morning (EYE-CHICKEN FANCIER) to steady your nerves or to get [...] & [facility] [address] [place] [address] Teena Olivia DO [address] [place] [address] documented as of this encounter Visit Diagnoses Not on filedocumented in this encounter Additional Health Concerns Assessment Noted Time A fall risk assessment has been complete d for the patient 01/10/2024 10:23 AM EDT A Body Mass Index follow-up plan has been documented for the patient 01/11/2024 9:22 AM EDT documented as of this encounter Care Teams Reservations Clerk Relationship Specialty Start Date End Date Michelle Lane PA [address] [place] [address] PCP - General 10/02/[address] PA [address] [place] [address] 10/02/20 documented as of this encounter
[2025-01-02 09:46] LABS: Hematocrit 45.2 % (42.0-52.0); Hemoglobin 15.4 g/dL (14.1-18.0); Immature Granulocytes % 0.2 %; Mean Corpuscular HGB Conc 34.1 g/dL (31.8-35.4); Mean Corpuscular Hemoglobin 30.7 pg (27.0-31.2); Mean Corpuscular Volume 90.0 fl (80-94); Nucleated Red Blood Cells % 0 %; Platelet Count 250 K/mm3 (142-424); Red Blood Count 5.02 M/mm3 (4.60-6.20); Red Cell Distribution Width-SD 42.9 fL; White Blood Count 5.0 K/mm3 (4.8-10.8)
[2025-01-02 10:41] LABS: Alanine Aminotransferase 35 U/L (12-78); Albumin Level 4.0 g/dl (3.5-5.0); Alkaline Phosphatase 101 U/L (38-126); Anion Gap 14.0 mEq/L (5-15); Aspartate Amino Transferase 34 U/L (17-59); Bilirubin,Direct 0.3 mg/dl (0.0-0.4); Bilirubin,Indirect 0.5 mg/dL (0.0-0.9); Bilirubin,Total 0.8 mg/dl (0.2-1.3); Bilirubin,Unconjugated 0.6 mg/dL (0.0-1.1); Blood Urea Nitrogen 20 mg/dl (9-20); Calcium 9.3 mg/dl (8.4-10.2); Carbon Dioxide 26 mmol/L (22.0-30.0); Chloride 101 mmol/L (98-107); Cholesterol 214 mg/dl (140-200); Creatinine,Serum 0.80 mg/dl (0.66-1.25); Estimated Glomerular Filt Rate 102 ml/min (>60); GFR (African American) 124 ML/MIN (>60); Glucose 91 mg/dl (74-100); HDL Cholesterol 39 mg/dl (40-60); Magnesium 2.0 mg/dl (1.6-2.3); Potassium 4.0 mmoL/L (3.5-5.1); Sodium 137 mmol/L (136-145); Total Protein,Serum 6.1 g/dl (6.3-8.2); Triglycerides 217 mg/dl (30-150)
[2025-01-02 11:10] LABS: Thyroid Stimulating Hormone 3.71 uIU/mL (0.465-4.68)
[2025-01-02 11:14] LABS: Free T4 (Free Thyroxine) 0.97 ng/dl (0.78-2.19)
== END 2025-01-02 23:59 | disposition home or self-care (01) ==
LOC: LAB 09:25
PROVIDERS: PCP Nurse Practitioner Family; Visit Provider Nurse Practitioner
DX: E78.5 Hyperlipidemia, unspecified (principal); I10 Essential (primary) hypertension
CPT/HCPCS: 36415; 80048; 80061; 80076; 83735; 84439; 84443; 85025

== ENCOUNTER 2025-01-09 06:29 | Outpatient (CLI) | payer OTHER, SELFPAY ==
--- NOTE | 2025-01-09 | CA_ITS ---
APPROVED REPORT Exam: Pharmacologic Technologist: Ashley Gibbs Ht: 5 ft 11 in Wt: 238 lbs BSA: 2.27 m2 HR: 80 bpm BP: 110/61 mmHg Rhythm: SR Medical History Cardiac Risk Factors: HTN, Hyperlipidemia Stress Test Details HR Resting HR: 80 bpm Max Heart Rate (APMHR): 170.444371 bpm Target HR (85% APMHR): 144.484514 bpm Recovery HR: 73 bpm BP Resting BP: 110.0/61.0 mmHg Recovery BP: 111.0/53.0 mmHg ECG Resting ECG: SR Stress ECG Conclusion During lexiscan pt experinced no symptoms. No arrhythmias noted. Less than .5mm upsloping ST segment changes. Nondiagnostic ECG/lexiscan. Electronically signed by : Fabby Julien MD 01/13/2025 02:01:07
--- NOTE | 2025-01-09 07:30 | NM_ITS ---
APPROVED REPORT Exam: Nuclear Stress Test Indication: soa..pre-op..fatigue Patient Location: Outpatient Stress Tech: Ashley Gibbs LANG Tech:Raine ConcepcionPORFIRIO RT(R)(N) Ht: 5 ft 10 in Wt: 240 lbs HR: 61 bpm BP: 110/61 mmHg BSA: 2.26 m2 TID: 1.16 BMI: 34.4 History: soa..pre-op..fatigue Procedure: Patient received 0.4 mg of intravenous Lexiscan, resting heart rate 61 bpm, resting blood pressure 110/61 mmHg, with Lexiscan maximum heart rate achieved was 74 bpm which is 85 % of the maximum predicted heart rate and blood pressure was 109/51 mmHg. With Lexiscan, patient denied any complaint of chest pain. Cardiac Stress and Resting SPECT Images: Cardiac Stress and Resting SPECT images were obtained using technetium 99m Myoview 32.8 mCi stress and 10.96 mCi at rest. Resting and stress imaging in supine and prone positions demonstrate a large sized, moderate, partially reversible perfusion defect in the inferior and apical LV de la cruz. Gated imaging demonstrates normal global LV systolic function. LVEF is calculated at 60%. Conclusion: Large sized, moderate, partially reversible perfusion defect in the inferior and apical LV de la cruz. Findings are suggestive of partial reversible ischemia. Gated imaging demonstrates normal global LV systolic function. LVEF is calculated at 60%. Electronically signed by : Fabby Julien MD 01/13/2025 01:53:35
[2025-01-09 08:30] VITALS: BP 110/61; PULSE 80; RESP 14
[2025-01-09] MEDS: ISOTOPE MYOVIEW (PER STUDY) 1 DOSE IV (09:15)
[2025-01-09] MEDS: SODIUM CHLORIDE 0.9% 10ML SYR (RAD ONLY) 10 ML IV ×2 (09:15)
== END 2025-01-09 23:59 | disposition home or self-care (01) ==
LOC: RAD 06:30
PROVIDERS: PCP Nurse Practitioner Family; Visit Provider Nurse Practitioner
DX: Z01.810 Encounter for preprocedural cardiovascular examination (principal); R94.39 Abnormal result of other cardiovascular function study; R06.02 Shortness of breath; R53.83 Other fatigue; I10 Essential (primary) hypertension
CPT/HCPCS: 78452; 93017; 93018; A9502; J2785

== ENCOUNTER 2025-01-27 08:38 | Outpatient (CLI) | payer OTHER, SELFPAY ==
--- OUTSIDE RECORDS SUMMARY | 2024-11-27 08:11 | XMS_ITS | Encounter Summary ---
Author Organization Healthcare Address [address] [place] [address] Care Team Providers Care Inspector Dials Name Role Phone Michelle Lane Primary Care Provider [phone] Unavailable [phone] Reason for Visit * Consultation (Routine) - Authorized Specialty Diagnoses / Procedures Referred By Elvis lemus Referred To Contact Physical Therapy Diagnoses Paraplegia, complete (CMS/HCC) Neuropathic pain Injury of lumbar spinal cord, initial encounter Incomplete paraplegia (CMS/HCC) Teena Olivia, [address] [facility] [address] [place] [address] Phone: tel: fax: [facility] Therapy [address] [place] [address] Phone: tel: fax: Referral ID Status Reason Start Date Expiration Date Visits Requested Visits Authorized [id number] Authorized Specialty Services Required 06/27/2024 12/27/2025 1 20 Encounter Details Date Type Department Care Team (Latest Contact Info) Description 11/27/2024 8:11 AM EDT - 11/27/2024 11:59 PM EDT Hospital Encounter [facility] [address] [place] [address] Clari English Incomplete paraplegia (CMS/HCC) (Primary Dx); [...] first t anastasia in the morning (EYE-MANAGER HYDRAULIC) to steady your nerves or to get [...] 1 (one) time each day. HYDROcodone-acet aminophen ([place]) 7.5-325 MG tablet Take 1 tablet (7.5 [...] 09 Chart Reviewed: Yes Family/Caregiver Present: No Chocolate Temperer: Not Applicable General Chocolate Temperer: Not Applicable Pain R lower leg- 11/10 [...] ONGOING. Look to continue progressing. Access Code: [email or web address] URL: [email or web address] Date: 10/02/2024 Prepared by: Clari English Exercises [...] Visit Physical Medicine & Rehabilitation Clinic at [facility] [address] [place] [address] Rachid Du Teena, DO [address] [facility] [address] [place] [address] documented as of this encounter [...] documented as of this encounter Care Teams Inspector Dials Relationship Specialty Start Date End Date Michelle Lane PA [address] [place] [address] PCP - General 10/02/[address] PA [address] [place] [address] 10/02/20 documented as of this encounter
[2025-01-27] VITALS (8 sets, daily range): BP systolic 95–120; BP diastolic 57–74; PULSE 60–66; RESP 18; TEMP 36.4; O2SAT 95–99; BMI 35.9
--- OUTSIDE RECORDS SUMMARY | 2025-01-27 08:48 | XMS_ITS | Encounter Summary ---
Author Organization Healthcare Address [address] [place] [address] Care Team Providers Care Green End Worker Name Role Phone Michelle Lane Primary Care Provider Michelle Lane Unavailable [phone] Encounter Details Date Type Department Care Team (Late st Contact Info) Description 11/25/2022 Orders Only External Location [address] [place] [address] SolomonYu, DO [address] [place] [address] Social History Tobacco Use Types [...] [facility] [address] [place] [address] Teena Olivia DO [address] [place] [address] documented as of this encounter [...] documented as of this encounter Care Teams Green End Worker Relationship Specialty Start Date End Date Michelle Lane PA [address] [place] [address] PCP - General 10/02/[address] PA [address] [place] [address] 10/02/20 documented as of this encounter
--- OUTSIDE RECORDS SUMMARY | 2025-01-27 08:48 | XMS_ITS | Encounter Summary ---
Author Organization Healthcare Address [address] [place] [address] Care Team Providers Care Full Time Staff Interpreter Name Role Phone Michelle Lane Primary Care Provider [phone] Unavailable [phone] Encounter Details Date Type Department Care Team (Late st Contact Info) Description 01/01/2025 Telephone [facility] Outpatient Therapy [address] [place] [address] Clari English Social History Tobacco [...] drink first t anastasia in the morning (EYE-THEATRE MANAGER) to steady your nerves or to get [...] skilled PT. Phone number for clinic provided ([phone]). documented in this encounter Plan of Treatment Upcoming Encounters Date Type Department Care Team (Late st Contact Info) Description 06/30/2025 11:50 AM EDT Office Visit [facility] [address] [place] [address] Teena Olivia, [address] [facility] [address] [place] [address] documented as of this encounter [...] documented as of this encounter Care Teams Full Time Staff Interpreter Relationship Specialty Start Date End Date Michelle Lane PA [address] [place] [address] PCP - General 10/02/[address] PA [address] [place] [address] 10/02/20 documented as of this encounter
--- OUTSIDE RECORDS SUMMARY | 2025-01-27 08:48 | XMS_ITS | Encounter Summary ---
Author Organization Healthcare Address [address] [place] [address] Care Team Providers Care Barrel Cutter Name Role Phone Michelle Lane Primary Care Provider Michelle Lane Unavailable [phone] Reason for Visit * Reason Comments Med Refill Encounter Details Date Type Department Care Team (Late st Contact Info) Description 01/09/2022 Refill [facility] [address] [place] [address] Georgina Michael MD [address] [facility] [address] [place] [address] Injury of lumbar spinal cord, 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[facility]); Paraplegia, complete ([facility]) Social History Tobacco Use Types [...] [facility] [address] [place] [address] Teena Olivia, [address] [place] [address] documented as of this encounter Visit Diagnoses Diagnosis Injury of lumbar spinal cord, initial encounter Paraplegia, complete (CMS/HCC) documented in this encounter Additional Health Concerns Assessment Noted Time A fall risk assessment has been complete d for the patient 01/06/2022 12:50 PM EDT documented as of this encounter Care Teams Barrel Cutter Relationship Specialty Start Date End Date Michelle Lane PA [address] [place] [address] PCP - General 10/02/[address] PA [address] [place] [address] 10/02/20 documented as of this encounter
--- OUTSIDE RECORDS SUMMARY | 2025-01-27 08:48 | XMS_ITS | Encounter Summary ---
Author Organization Healthcare Address [address] [place] [address] Care Team Providers Care Tunnel Heading Supervisor Name Role Phone Michelle Lane Primary Care Provider [phone] Unavailable [phone] Encounter Details Date Type Department Care Team (Late st Contact Info) Description 10/11/2021 Lab Requisition [facility] [address] [place] [address] Jesus Becerril MD [address] [address] Encounter for general adult medical [...] [facility] [address] [place] [address] Teena Olivia, [address] [place] [address] documented as of this encounter Procedures Procedure Name Priority Date/Time Associated Diagnosis Comments MULTI DRUG RESISTANCE TEST Routine 10/11/2021 10:35 AM EDT Encounter for general adult medical examination without abnormal findings documented in this encounter Results * Multi Drug Resistance Test (10/11/2021 10:35 AM EDT) Culture No growth at day 1 10/12/2021 2:45 PM EDT [facility] Swab (Nares and Justine Rectal) 10/11/2021 10:35 AM EDT 10/11/2021 11:04 AM EDT us Jesus Sher MD LAB MICROBIOLOGY - GENERAL ORDERABLES Final Result [facility] [address] [place] [address] documented in this encounter Visit Diagnoses Diagnosis Encounter for general adult medical examination without abnormal findings documented in this encounter Care Teams Tunnel Heading Supervisor Relationship Specialty Start Date End Date Michelle Lane PA [address] [place] [address] PCP - General 10/02/[address] PA [address] [place] [address] 10/02/20 documented as of this encounter
--- OUTSIDE RECORDS SUMMARY | 2025-01-27 08:48 | XMS_ITS | Clinical Summary ---
Author Organization [facility] Address [address] [place] [address] Care Team Providers Care Rn Family Name Role Phone Provider, No Known Primary [...] (1 of 2) 2024 Insurance Care Teams Rn Family Relationship Specialty Start Date End Date Provider, No Known [facility] [place] [address] PCP - General 04/07/16
--- OUTSIDE RECORDS SUMMARY | 2025-01-27 08:48 | XMS_ITS | Encounter Summary ---
Author Organization Healthcare Address [address] [place] [address] Care Team Providers Care Mechanism Assembler Name Role Phone Michelle Lane Primary Care Provider Michelle Lane Unavailable Encounter Details Date Type Department Care Team (Late st Contact Info) Description 11/25/2022 Orders Only External Location [address] [place] [address] SolomonYu, DO [address] [place] [address] Social History Tobacco Use Types [...] [facility] [address] [place] [address] Teena Olivia DO [address] [place] [address] documented as of this encounter [...] documented as of this encounter Care Teams Mechanism Assembler Relationship Specialty Start Date End Date Michelle Lane PA [address] [place] [address] PCP - General 10/02/[address] PA [address] [place] [address] 10/02/20 documented as of this encounter
--- OUTSIDE RECORDS SUMMARY | 2025-01-27 08:48 | XMS_ITS | Clinical Summary ---
Author Organization Healthcare Address [address] [place] [address] Care Team Providers Care School Bus Driver/Custodian Name Role Phone Michelle Lane Primary Care Provider [phone] Unavailable [phone] Allergies No known active allergies Medications [...] (one) time each day. Active HYDROcodone-veda taminophen ([place]) 7.5-325 MG tablet Take 1 tablet (7.5 [...] 07/30/2023 Overview (10/21/2021): Pain team consulted IV REFRIGERATION PLANT OPERATOR , 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 10/07 - PO regimen 10/17: Robaxin stopped and home zanaflex started Aortic valve replaced 10/02/20212023 Overview (10/21/2021): Restarted home aspirin 10/03 Hyperglycemia 10/02/2021 07/30/2023 Overview (10/21/2021): - likely due to trauma - Continue to monitor, has been stable Encounters Date Type Department Care Team Description 01/01/2025 Telephone [facility] Outpatient Therapy [address] [place] [address] Clari English 11/27/2024 8:11 AM EDT - 11/27/2024 11:59 PM EDT Hospital Encounter [facility] Therapy [address] [place] [address] Clari English Incomplete paraplegia (CMS/HCC) (Primary Dx); Neuropathic pain Discharge Disposition: Still a Patient 11/27/2024 Travel 11/20/2024 8:05 AM EDT - 11/20/2024 11:59 PM EDT Hospital Encounter [facility] Outpatient Therapy [address] [place] [address] Clari English Incomplete paraplegia (CMS/HCC) (Primary Dx); Neuropathic pain Discharge Disposition: Still a Patient 11/20/2024 Travel 11/13/2024 8:15 AM EDT - 11/13/2024 11:59 PM EDT Hospital Encounter [facility] Outpatient Therapy [address] [place] [address] Clari English Incomplete paraplegia (CMS/HCC) (Primary Dx); Neuropathic pain Discharge Disposition: Still a Patient 11/13/2024 Travel 11/06/2024 Travel 10/30/2024 8:15 AM EDT - 10/30/2024 11:59 PM EDT Hospital Encounter [facility] Outpatient Therapy [address] [place] [address] Clari English Incomplete paraplegia (CMS/HCC) (Primary Dx); Neuropathic pain Discharge Disposition: Still a Patient 10/30/2024 Travel from Last 3 Months Immunizations Immunization [...] drink first t anastasia in the morning (EYE-CROSSTIE INSPECTOR) to steady your nerves or to get [...] [facility] [address] [place] [address] Teena Olivia DO [address] [place] [address] Health Maintenance Due Date Last Done Comments [facility]-Bone Density Scan 1974 [facility]-HIV Screening 1974 [facility]-Hepatitis C Screening 1974 [facility]-/Child/Adol SDOH Screenings 1974 NXP-XANET-77 Vaccine (#1) 11/25/1979 [facility]- SDOH Screenings 1992 [...] this topic Medical Devices Implanted Type Area Blast Furnace Helper Device Identifier Shelf Expiration Date Model / Serial / Lot Screw 7.0mm Viper Cfx Fen Xtab 45mm - [id number] Implanted:Qty : 6 on 10/05/2021 by Ricky Osorio MD at [facility] N/A: Spine Lumbar DePuy Spine Sales [id number] / / Ozzy Viper2 Lordotic 90mm - [id number] Implanted:Qty : 2 on 10/05/2021 by Ricky Osorio MD at [facility] N/A: Spine Lumbar DePuy Spine Sales [id number] / / Single Inner Setscrew - [id number] Implanted:Qty : 6 on 10/05/2021 by Ricky Osorio MD at [facility] N/A: Spine Lumbar DePuy Spine Sales [id number] / / Nail 10mm Ti Dorothy Tbl Ex W/Prx Bnd 360mm - [id number] Implanted:Qty : 1 on 07/28/2023 by Taz Muñiz MD at [facility] Right: [employer] [id number] 07/01/2029 [id number] / / Screw 5.0mm Ti T25 Star Lock For Im Nail 32mm - [id number] Implanted:Qty : 1 on 07/28/2023 by Taz Muñiz MD at [facility] Right: [employer] [id number] 07/27/2024 [id number] / / Screw 5.0mm Ti T25 Star Lock For Im Nail 38mm - [id number] Implanted:Qty : 1 on 07/28/2023 by Taz Muñiz MD at [facility] Right: [employer] [id number] 07/27/2024 [id number] / / Screw 5.0mm Ti T25 Star Lock For Im Nail 40mm - [id number] Implanted:Qty : 1 on 07/28/2023 by Taz Muñiz MD at [facility] Right: [employer] [id number] 07/27/2024 [id number] / / Screw 5.0mm Ti T25 Star Lock For Im Nail 42mm - [id number] Implanted:Qty : 1 on 07/28/2023 by Taz Muñiz MD at [facility] Right: [employer] [id number] 07/27/2024 04.005.532 / / Insurance [employer] MEDICAID Advance Directives * Full Code (Latest Code Status on File) Date Activated Date Inactivated Comments 07/27/2023 8:23 PM 07/31/2023 5:56 PM Question Answer Comments Patient has decision-making capacity? Yes * Full Code Date Activated Date Inactivated Comments 10/05/2021 8:12 PM 10/21/2021 5:45 PM Question Answer Comments Patient has decision-making capacity? Yes Care Teams School Bus Driver/Custodian Relationship Specialty Start Date End Date Michelle Lane PA [address] [place] [address] PCP - General 10/02/[address] PA [address] [place] [address] 10/02/20
--- OUTSIDE RECORDS SUMMARY | 2025-01-27 08:48 | XMS_ITS | Encounter Summary ---
Author Organization Healthcare Address [address] [place] [address] Care Team Providers Care Engine Generator Assembler Name Role Phone Michelle Lane Primary Care Provider [phone] Unavailable [phone] Encounter Details Date Type Department Care Team (Late st Contact Info) Description 06/28/2024 Orders Only External Location [address] [place] [address] Provider, External Social History Tobacco Use Types [...] drink first t anastasia in the morning (EYE-WAREHOUSE PROCESSOR) to steady your nerves or to get [...] [facility] [address] [place] [address] Teena Olivia DO [address] [place] [address] documented as of this encounter [...] documented as of this encounter Care Teams Engine Generator Assembler Relationship Specialty Start Date End Date Michelle Lane PA [address] [place] [address] PCP - General 10/02/[address] PA [address] [place], [place] [address] 10/02/20 documented as of this encounter
--- OUTSIDE RECORDS SUMMARY | 2025-01-27 08:48 | XMS_ITS | Encounter Summary ---
Author Organization Healthcare Address [address] [place] [address] Care Team Providers Care Mortgage Closing Clerk Name Role Phone Michelle Lane Primary Care Provider [phone] Unavailable [phone] Reason for Visit * Reason Comments Med Refill Encounter Details Date Type Department Care Team (Late st Contact Info) Description 01/22/2024 Refill [facility] [address] [place] [address] Teena Olivia DO [address] [facility] [address] [place] [address] Social History Tobacco Use Types [...] drink first t anastasia in the morning (EYE-OUTSIDE MACHINIST HELPER) to steady your nerves or to get [...] [facility] [address] [place] [address] Teena Olivia DO [address] [place] [address] documented as of this encounter Visit Diagnoses Not on filedocumented in this encounter Additional Health Concerns Assessment Noted Time A fall risk assessment has been complete d for the patient 01/10/2024 10:23 AM EDT A Body Mass Index follow-up plan has been documented for the patient 01/11/2024 9:22 AM EDT documented as of this encounter Care Teams Mortgage Closing Clerk Relationship Specialty Start Date End Date Michelle Lane PA [address] [place] [address] PCP - General 10/02/[address] PA [address] [place] [address] 10/02/20 documented as of this encounter
--- NOTE | 2025-01-27 10:00 | CT_ITS ---
APPROVED REPORT Junior Copywriter: CLINICAL INDICATION Chest Pain TECHNIQUE Image Acquisition: A 128 slice MDCT scanner (PasswordBanka View) was used for data acquisition. A noncontrast coronary calcium scan was performed. A CT attenuation threshold of 130 Hounsfield units (HU) was used for the detection of calcium in contiguous voxels of 1 sq mm in area to be counted as individual lesions. Bolus tracking in the ascending aorta with a threshold of 180 HU was performed. Immediately afterwards, ECG synchronized cardiac CT was then performed from the cardiac base to apex using retrospective gating with ECG tube current modulation. A total of 85 mL of Isovue 370 mg/mL contrast medium was administered at 5 mL/sec followed by a saline flush using a biphasic injection protocol. A tube voltage of 120 KVp was used. The patient received no medications prior to the cardiac CT. The average heart rate at the time of acquisition was 59 bpm and regular. Image Reconstruction Transaxial images were reconstructed at 0.67 mm slide thickness. Data was reviewed interactively on an advanced workstation capable of 2 and 3-dimensional displays in all conventional reconstruction formats, including multiplanar reformations, maximum intensity projections, curved multiplanar reformations, and volume rendered reconstructions. When applicable, selected routine images describing the relevant coronary anatomy and pathology were saved and sent to PACS. Complications None Technical Quality Overall image quality was good. Coronary artery opacification was adequate. Total DLP (Dose-Length Product) is 1671.1 mGy-cm. The reported value represents the total of one or more individual components during the CT acquisition of this date and at this time, and as such, the same value may appear in more than one CT report depending on the interpreting/reporting physicians. COMPARISON None FINDINGS CT Coronary Calcium Scoring LMA (Left Main Artery) = 0 LAD (Left Anterior Descending) = 27 LCX (Left Coronary Circumflex) = 0 RCA (Right Coronary Artery) = 0 Total Calcium Score = 27 using the AJ-130 method. The observed calcium score of 27 is at 76th percentile for subjects of the same age, sex, and race/ethnicity. The interpretation of the calcium heart score is based on the following continuum*: 0 = no calcified plaque detected (risk of coronary artery disease is very low ??? less than 5%) 1-10 = calcium detected in extremely minimal levels (risk of coronary diseases is still low ??? less than 10%) 11-100 = mild levels of plaque detected with certainty (mild or minimal narrowing of heart arteries is likely) 101-400 = definite,at least moderate levels of plaque detected (relatively high risk of a heart attack within 3-5 years) >401-999 = extensive levels of plaque detected (high risk of heart attack, high levels of vascular disease are present, high likelihood of at least one significant coronary narrowing) *The calcium heart score quantifies the burden of coronary calcification/plaque in the coronary arteries. The calcium heart score is not able to evaluate the presence or burden of non-calcified (i.e. soft) plaque. There is no identifiable calcification in the aortic valve, mitral annulus or mitral valve, pericardium, or myocardium. Coronary CT Angiography The coronary arterial system is right dominant. Quantitative Stenosis Grading: Left Main (LM): The left main originates normally from the left sinus of Valsalva. The LM bifurcates into the left anterior descending artery and left circumflex artery. The LM is patent with no evidence of atherosclerosis. Left Anterior Descending (LAD) and Diagonal Branches: The LAD gives off 3 diagonal branch(es). There is mixed calcified/noncalcified plaque in the proximal and mid LAD segments, with up to 25-49% luminal stenosis. There is no evidence of LAD-myocardial bridge. Left Circumflex (LCX) and Obtuse Marginals (OM): The LCX gives off 1 Obtuse Marginal (OM) branch(es). The LCX and its branches are patent with no evidence of atherosclerosis. Right Coronary Artery (RCA): The RCA originates normally from the right sinus of Valsalva. The RCA gives off a posterior descending artery (PDA) and posterolateral (PL) branches. The RCA and its branches are patent with no evidence of atherosclerosis. Non-Coronary Cardiac Findings: Analysis of the left ventricular (LV) structure and function was performed after 3-D reconstruction of the LV from axial images, with user-corrected automatic contouring for assessment of LV volumes and user-defined reconstruction from oblique planes for measurement of 3-D cardiac structure and function. -The left ventricle systolic function is normal. -There is no left atrial appendage filling defect. Two right pulmonary veins and two left pulmonary veins drain normally into the left atrium. -No pericardial thickening or calcification. -Central and branch pulmonary arteries in the [id number] are unremarkable. -Thoracic aorta within the visualized thoracic aortic-branches in the [id number] is unremarkable. -Bioprosthetic AVR is present. Extracardiac Structures No significant extra-cardiac findings. Note, however, that this study is focused on the cardiac findings. IMPRESSION -Presence of coronary calcification with an Agatston score = 27 using the AJ-130 method. - Mild, nonobstructive atherosclerotic coronary disease, with no evidence of significant flow-limiting atherosclerosis of the coronary arteries. -The observed calcium score of 27 is at 76th percentile for subjects of the same age, sex, and race/ethnicity. -CAD-RADS 2. Management recommendations per ACC/AHA guidelines*, as clinically appropriate. -Bioprosthetic AVR is present. *Recommendations: CAD RADS 0: Reassurance. Consider non-atherosclerotic causes of chest pain. CAD RADS 1: Consider non-atherosclerotic causes of chest pain. Consider preventive therapy and risk factor modification. CAD RADS 2: Consider non-atherosclerotic causes of chest pain. Consider preventive therapy and risk factor modification, particularly for patients with nonobstructive plaque in multiple segments. CAD RADS 3: Consider further functional testing. Consider symptom-guided anti-ischemic and preventive pharmacotherapy as well as risk factor modification per published guideline statements. CAD RADS 4A: Consider further functional testing or invasive coronary angiography with revascularization per published guideline statements. Consider symptom-guided anti-ischemic and preventive pharmacotherapy as well as risk factor modification per published guideline statements. CAD RADS 4B: Invasive coronary angiography recommended with revascularization per published guideline statements. Consider symptom-guided anti-ischemic and preventive pharmacotherapy as well as risk factor modification per published guideline statements. CAD RADS 5: Consider invasive angiography and/or viability assessment with revascularization per published guideline statements. Consider symptom-guided anti-ischemic and preventive pharmacotherapy as well as risk factor modification per published guideline statements. CRITICAL RESULT None COMMUNICATION Per this written report The coronary and cardiac findings of this CCTA were reviewed, reported, and signed by Amandeep Julien MD (Automatic Buffer) Conclusion Electronically signed by : Fabby Julien MD 01/28/2025 12:28:49
[2025-01-27] MEDS: IOPAMIDOL-370 (76%);100ML BOTTLE 85 ML IV (10:16)
[2025-01-27] MEDS: SODIUM CHLORIDE 0.9% 10ML SYR (RAD ONLY) 10 ML IV (10:16)
[2025-01-27] MEDS: 0.9 % SODIUM CHLORIDE 50 ML VIAL IV (10:16)
== END 2025-01-27 10:32 | disposition home or self-care (01) ==
PROVIDERS: PCP Nurse Practitioner Family; Visit Provider Physician Assistant
DX: I25.10 Atherosclerotic heart disease of native coronary artery without angina pectoris (principal); I10 Essential (primary) hypertension; R94.39 Abnormal result of other cardiovascular function study; Z95.3 Presence of xenogenic heart valve
CPT/HCPCS: 75574; Q9967

== ENCOUNTER 2025-03-29 12:28 | Emergency (ER) | payer OTHER, SELFPAY ==
[2025-03-29 12:30] VITALS: BP 118/80; PULSE 79; RESP 20; TEMP 36.7; O2SAT 97; BMI 36.9
[2025-03-29 12:40] VITALS: BP 118/80; PULSE 78; RESP 18; O2SAT 96
--- OUTSIDE RECORDS SUMMARY | 2025-03-29 12:41 | XMS_ITS | Encounter Summary ---
Author Organization Healthcare Address [address] [place] [address] Care Team Providers Care Pulp Grinder Feeder Name Role Phone Michelle Lane Primary Care Provider [phone] Unavailable [phone] Encounter Details Date Type Department Care Team (Late st Contact Info) Description 06/28/2024 Orders Only External Location [address] [place] [address] Provider, External Social History Tobacco Use Types [...] drink first t anastasia in the morning (EYE-URBAN REDEVELOPMENT SPECIALIST) to steady your nerves or to [...] [facility] [address] [place] [address] Teena Olivia DO [address] [place] [address] documented as of this encounter [...] as of this encounter Care Teams Pulp Grinder Feeder Relationship Specialty Start Date End Date Michelle Lane PA [address] [place] [address] PCP - General 10/02/[address] PA [address] [place], [place] [address] 10/02/20 documented as of this encounter
--- OUTSIDE RECORDS SUMMARY | 2025-03-29 12:41 | XMS_ITS | Clinical Summary ---
Author Organization [facility] Address [address] [place] [address] Care Team Providers Care Tax Processor Name Role Phone Provider, No Known Primary [...] (1 of 2) 2024 Insurance Care Teams Tax Processor Relationship Specialty Start Date End Date Provider, No Known [facility] [place] [address] PCP - General 04/07/16
--- OUTSIDE RECORDS SUMMARY | 2025-03-29 12:41 | XMS_ITS | Encounter Summary ---
Author Organization Healthcare Address [address] [place] [address] Care Team Providers Care Director Global Intelligence Name Role Phone Michelle Lane Primary Care Provider [phone] Unavailable [phone] Encounter Details Date Type Department Care Team (Late st Contact Info) Description 11/25/2022 Orders Only External Location [address] [place] [address] SolomonYu, DO [address] [place] [address] Social History Tobacco Use Types [...] [facility] [address] [place] [place] [address] Teena Olivia DO [address] [place] [address] documented as of this encounter [...] documented as of this encounter Care Teams Director Global Intelligence Relationship Specialty Start Date End Date Michelle Lane PA [address] [place] [address] PCP - General 10/02/[address] PA [address] [place] [address] 10/02/20 documented as of this encounter
--- OUTSIDE RECORDS SUMMARY | 2025-03-29 12:41 | XMS_ITS | Encounter Summary ---
Author Organization Healthcare Address [address] [place] [address] Care Team Providers Care Division Sergeant Name Role Phone Michelle Lane Primary Care Provider Michelle Lane Unavailable [phone] Encounter Details Date Type Department Care Team (Late st Contact Info) Description 11/25/2022 Orders Only External Location [address] [place] [address] SolomonYu, DO [address] [place] [address] Social History Tobacco Use Types [...] [facility] [address] [place] [address] Teena Olivia DO [address] [place] [address] documented as of this encounter [...] documented as of this encounter Care Teams Division Sergeant Relationship Specialty Start Date End Date Michelle Lane PA [address] [place] [address] PCP - General 10/02/[address] PA [address] [place] [address] 10/02/20 documented as of this encounter
--- OUTSIDE RECORDS SUMMARY | 2025-03-29 12:41 | XMS_ITS | Encounter Summary ---
Author Organization Healthcare Address [address] [place] [address] Care Team Providers Care Double End Production Grinder Name Role Phone Michelle Lane Primary Care Provider [phone] Unavailable [phone] Reason for Visit * Reason Comments Med Refill Encounter Details Date Type Department Care Team (Late st Contact Info) Description 01/22/2024 Refill [facility] [address] [place] [address] Teena Olivia DO [address] [facility] [address] [place] [address] Social History Tobacco Use Types [...] drink first t anastasia in the morning (EYE-THREAD TWISTER) to steady your nerves or to get [...] Clinic at [facility] [address] [place] [address] Teena Olivia DO [address] [place] [address] documented as of this encounter Visit Diagnoses Not on filedocumented in this encounter Additional Health Concerns Assessment Noted Time A fall risk assessment has been complete d for the patient 01/10/2024 10:23 AM EDT A Body Mass Index follow-up plan has been documented for the patient 01/11/2024 9:22 AM EDT documented as of this encounter Care Teams Double End Production Grinder Relationship Specialty Start Date End Date Michelle Lane PA [address] [place] [address] PCP - General 10/02/[address] PA [address] [place] [address] 10/02/20 documented as of this encounter
--- OUTSIDE RECORDS SUMMARY | 2025-03-29 12:41 | XMS_ITS | Encounter Summary ---
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); Paraplegia, complete ([facility]) Social History Tobacco Use Types Packs/Day Years [...] [facility] [address] [place] [address] Teena Olivia, [address] [place] [address] documented as of this encounter Visit Diagnoses Diagnosis Injury of lumbar spinal cord, initial encounter Paraplegia, complete (CMS/HCC) documented in this encounter Additional Health Concerns Assessment Noted Time A fall risk assessment has been complete d for the patient 01/06/2022 12:50 PM EDT documented as of this encounter Care Teams Costume Specialist Relationship Specialty Start Date End Date Michelle Lane PA [address] [place] [address] PCP - General 10/02/[address] PA [address] [place] [address] 10/02/20 documented as of this encounter
--- OUTSIDE RECORDS SUMMARY | 2025-03-29 12:41 | XMS_ITS | Encounter Summary ---
Author Organization Healthcare Address [address] [place] [address] Care Team Providers Care Soft Work Cigar Machine Operator Name Role Phone Michelle Lane Primary Care Provider [phone] Unavailable [phone] Encounter Details Date Type Department Care Team (Late st Contact Info) Description 10/11/2021 Lab Requisition [facility] [address] [place] [address] Jesus Becerril MD [address] [address] Encounter for general adult medical [...] [facility] [address] [place] [address] Teena Olivia, [address] [place] [address] documented as of this encounter Procedures Procedure Name Priority Date/Time Associated Diagnosis Comments MULTI DRUG RESISTANCE TEST Routine 10/11/2021 10:35 AM EDT Encounter for general adult medical examination without abnormal findings documented in this encounter Results * Multi Drug Resistance Test (10/11/2021 10:35 AM EDT) Culture No growth at day 1 10/12/2021 2:45 PM EDT [facility] Swab (Nares and Justine Rectal) 10/11/2021 10:35 AM EDT 10/11/2021 11:04 AM EDT us Jesus Sher MD LAB MICROBIOLOGY - GENERAL ORDERABLES Final Result [facility] [address] [place] [address] documented in this encounter Visit Diagnoses Diagnosis Encounter for general adult medical examination without abnormal findings documented in this encounter Care Teams Soft Work Cigar Machine Operator Relationship Specialty Start Date End Date Michelle Lane PA [address] [place] [address] PCP - General 10/02/[address] PA [address] [place] [address] 10/02/20 documented as of this encounter
--- OUTSIDE RECORDS SUMMARY | 2025-03-29 12:41 | XMS_ITS | Clinical Summary ---
Author Organization Healthcare Address [address] [place] [address] Care Team Providers Care Prescription Eyeglass Maker Name Role Phone Michelle Lane Primary Care Provider [phone] Unavailable [phone] Allergies No known active allergies Medications [...] (one) time each day. Active HYDROcodone-veda taminophen (Gifford) 7.5-325 MG tablet Take 1 tablet (7.5 [...] 07/30/2023 Overview (10/21/2021): Pain team consulted IV DIRECTOR DESIGN , 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 10/07 - PO regimen 10/17: Robaxin stopped and home zanaflex started Aortic valve replaced 10/02/20212023 Overview (10/21/2021): Restarted home aspirin 10/03 Hyperglycemia 10/02/2021 07/30/2023 Overview (10/21/2021): - likely due to trauma - Continue to monitor, has been stable Encounters Date Type Department Care Team Description 01/01/2025 Telephone [facility] Out[facility] [address] [place] [address] Clari English from Last 3 Months Immunizations Immunization Administration [...] drink first t anastasia in the morning (EYE-GRADES 6 THROUGH 8 TEACHER) to steady your nerves or to [...] [facility] [address] [place] [address] Teena Olivia, [address] [place] [address] Health Maintenance Due Date Last Done Comments [facility]-Bone Density Scan 1974 [facility]-HIV Screening 1974 [facility]-Hepatitis C Screening 1974 [facility]-Infant/Child/Adol SDOH Screenings 1974 [id number] Vaccine (#1) 05/27/1975 [facility]- SDOH Screenings 1992 [facility]-Adult SDOH Screenings 1992 [facility]-DTaP,Tdap,and Td Vaccines (1 - Tdap) 1993 [facility]-Hepatitis B Vaccines (1 of 3 - 19+ 3-dose series) 1993 [facility]-Pneumococcal Vaccine: 50+ Years (1 of 2 - PCV) 1993 CT Colonography 11/25/2019 Colonoscopy 11/25/2019 FIT-DNA 11/25/2019 FIT 11/25/2019 FOBT 11/25/2019 Sigmoidoscopy 11/25/2019 [facility]-Colorectal Cancer Screening 11/25/2019 [facility]-Zoster Vaccines (1 of 2) 2024 [facility]-Influenza Vaccine (#1) 12/02/202401/01, 03/25/2019, 08/20/2018 [facility]-Depression Screening 06/27/2025 06/27/2024, 06/02 [facility]-Obesity Intervention Completed 025, 06/27/2024, 01/10/2024, Additional history exists HPV Vaccines (No Doses Required) Completed [facility]-HIB Vaccines Aged Out No longer e [...] this topic Medical Devices Implanted Type Area Customer Service Leader Device Identifier Shelf Expiration Date Model / Serial / Lot Screw 7.0mm Viper Cfx Fen Xtab 45mm - [id number] Implanted:Qty : 6 on 10/05/2021 by Ricky Osorio MD at [facility] N/A: Spine Lumbar DePaXess [employer] [id number] / / Ozzy Viper2 Lordotic 90mm - [id number] Implanted:Qty : 2 on 10/05/2021 by Ricky Osorio MD at [facility] N/A: Spine Lumbar DePuy Spine [employer] [id number] / / Single Inner Setscrew - [id number] Implanted:Qty : 6 on 10/05/2021 by Ricky Osorio MD at [facility] N/A: Spine Lumbar DePuy Spine [employer] [id number] / / Nail 10mm Ti Dorothy Tbl Ex W/Prx Bnd 360mm - [id number] Implanted:Qty : 1 on 07/28/2023 by Taz Muñiz MD at [facility] Right: [employer] [id number] 07/01/2029 [id number] / / Screw 5.0mm Ti T25 Star Lock For Im Nail 32mm - [id number] Implanted:Qty : 1 on 07/28/2023 by Taz Muñiz MD at [facility] Right: [employer] [id number] 07/27/2024 [id number] / / Screw 5.0mm Ti T25 Star Lock For Im Nail 38mm - [id number] Implanted:Qty : 1 on 07/28/2023 by Taz Muñiz MD at [facility] Right: [employer] [id number] 07/27/2024 [id number] / / Screw 5.0mm Ti T25 Star Lock For Im Nail 40mm - [id number] Implanted:Qty : 1 on 07/28/2023 by Taz Muñiz MD at [facility] Right: [employer] [id number] 07/27/2024 [id number] / / Screw 5.0mm Ti T25 Star Lock For Im Nail 42mm - [id number] Implanted:Qty : 1 on 07/28/2023 by Taz Muñiz MD at [facility] Right: [employer] [id number] 07/27/2024 [id number] / / Insurance [employer] MEDICAID Advance Directives * Full Code (Latest Code Status on File) Date Activated Date Inactivated Comments 07/27/2023 8:23 PM 07/31/2023 5:56 PM Question Answer Comments Patient has decision-making capacity? Yes * Full Code Date Activated Date Inactivated Comments 10/05/2021 8:12 PM 10/21/2021 5:45 PM Question Answer Comments Patient has decision-making capacity? Yes Care Teams Prescription Eyeglass Maker Relationship Specialty Start Date End Date Michelle Lane PA [address] [place] [address] PCP - General 10/02/[address] PA [address] [place] [address] 10/02/20
[2025-03-29 13:00] VITALS: BP 117/78; PULSE 66; RESP 18; O2SAT 95
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
[2025-03-29 13:30] VITALS: BP 115/79; PULSE 64; RESP 18; O2SAT 96
[2025-03-29 13:46] LABS: Hematocrit 45.0 % (42.0-52.0); Hemoglobin 15.3 g/dL (14.1-18.0); Immature Granulocytes % 0.4 %; Mean Corpuscular HGB Conc 34.0 g/dL (31.8-35.4); Mean Corpuscular Hemoglobin 30.9 pg (27.0-31.2); Mean Corpuscular Volume 90.9 fl (80-94); Nucleated Red Blood Cells % 0 %; Platelet Count 251 K/mm3 (142-424); Red Blood Count 4.95 M/mm3 (4.60-6.20); Red Cell Distribution Width-SD 43.5 fL; White Blood Count 4.8 K/mm3 (4.8-10.8)
[2025-03-29] MEDS: DEXAMETHASONE 4MG/ML 1ML VIAL 10 MG IV (14:03)
[2025-03-29] MEDS: FAMOTIDINE 20MG/2ML VIAL 20 MG IV (14:03)
[2025-03-29 14:04] LABS: Albumin Level 4.3 g/dl (3.5-5.0); Chloride 101 mmol/L (98-107); Sodium 136 mmol/L (136-145)
[2025-03-29 14:05] LABS: Potassium 4.5 mmoL/L (3.5-5.1)
[2025-03-29 14:07] LABS: Activated Partial Thrombo Time 24.9 seconds (22.8-30.6); Alanine Aminotransferase 32 U/L (12-78); Albumin/Globulin Ratio 1.7 (1.1-1.8); Alkaline Phosphatase 72 U/L (38-126); Anion Gap 8.5 mEq/L (5-15); Aspartate Amino Transferase 35 U/L (17-59); Bilirubin,Total 0.6 mg/dl (0.2-1.3); Blood Urea Nitrogen 16 mg/dl (9-20); Carbon Dioxide 31 mmol/L (22.0-30.0); Creatinine Clearance Estimated 157 mL/min (50-200); Creatinine,Serum 0.90 mg/dl (0.66-1.25); Estimated Glomerular Filt Rate 89 ml/min (>60); GFR (African American) 108 ML/MIN (>60); Globulin 2.6 g/dL (1.3-3.2); Total Protein,Serum 6.9 g/dl (6.3-8.2)
[2025-03-29 14:08] LABS: Calcium 9.6 mg/dl (8.4-10.2); Glucose 96 mg/dl (74-100); Magnesium 2.3 mg/dl (1.6-2.3)
[2025-03-29 14:13] VITALS: BP 111/83; PULSE 64; RESP 18; O2SAT 100
[2025-03-29 14:13] LABS: C-Reactive Protein 0.9 mg/L (0-4)
[2025-03-29 14:14] LABS: INR 0.95 (0.9-1.1); Prothrombin Time 10.6 seconds (10.1-12.5)
[2025-03-29 14:43] VITALS: BP 128/76; PULSE 85; RESP 20; TEMP 36.7; O2SAT 98
== END 2025-03-29 14:47 | disposition home or self-care (01) ==
PROVIDERS: Nurse Practitioner; Emergency Provider Emergency Medicine; PCP Nurse Practitioner Family
DX: R21 Rash and other nonspecific skin eruption (principal); L29.9 Pruritus, unspecified
CPT/HCPCS: 80053; 83735; 85025; 85610; 85651; 85730; 86140; 96374; 96375; 99284; J1100; J1200; J1308